=== PATIENT | female | born 1970 | race Caucasian/White ===

== ENCOUNTER 2018-04-19 21:38 | Outpatient (REF) | payer BC, SELFPAY ==
[2018-04-21 15:18] LABS: Chlamydia Result Negative; GC Result Negative; Specimen Description CERVIX
== END 2018-04-19 21:58 ==
LOC: NCHCN 21:38
PROVIDERS: PCP Nurse Practitioner Family; Visit Provider Nurse Practitioner
DX: N76.0 Acute vaginitis (principal); Z11.3 Encounter for screening for infections with a predominantly sexual mode of transmission
CPT/HCPCS: 87491; 87591; 87480; 87510; 87660

== ENCOUNTER 2019-11-17 17:04 | Outpatient (REF) | payer BC, SELFPAY ==
--- NOTE | 2019-11-17 16:15 | PAPFT_PTH ---
PATIENT: Johanne Prasad LOC: [facility]#:[id number] AGE/SX: 48/F ROOM: RE11/17/[address]: Breann Elias : 1970 BED: DIS: 11/17/2019 SPEC #: [id number] RECD: 11/18/19 12:42 STATUS: SALVADOR REIvet #: [id number] JAMES: 11/17/19 16:[address]: Breann Elias [facility] Cytology RECD BY: Flores Tate Tissues: 1 - CX/ENDOCX FOR PAP SMEARS Procedures: PAP THIN PREP/[facility] Screening HPV DNA PROBE Comments: [id number] (CHLAMYDIA/GC)
[2019-11-17 21:25] LABS: Calculated LDL 127 mg/dL (<100); Cholesterol 243 mg/dL (<200); HDL Cholesterol 93 mg/dL (40-60); TSH (W/Ref FT4) 2.12 uIU/mL (0.36-3.74); Triglyceride 119 mg/dL (<150)
[2019-11-21 10:14] LABS: Hepatitis C Ab w Rflx HCV PCR Negative (Negative)
[2019-11-21 10:24] LABS: HIV-1/2 Ag & Ab Screen Negative (Negative)
[2019-11-21 12:40] LABS: Syphilis Serology (RPR) Negative (Negative)
[2019-11-21 15:32] LABS: Chlamydia Result Negative (Negative); GC Result Negative (Negative)
== END 2019-11-17 17:24 ==
LOC: NCHCN 17:04
PROVIDERS: PCP Nurse Practitioner Family; Visit Provider Nurse Practitioner Family
DX: Z00.00 Encounter for general adult medical examination without abnormal findings (principal); F41.8 Other specified anxiety disorders; N92.0 Excessive and frequent menstruation with regular cycle; R51 Headache; R19.4 Change in bowel habit; M54.5 Low back pain; E66.3 Overweight; Z11.4 Encounter for screening for human immunodeficiency virus [HIV]; Z11.59 Encounter for screening for other viral diseases; Z13.220 Encounter for screening for lipoid disorders; Z12.4 Encounter for screening for malignant neoplasm of cervix; Z01.419 Encounter for gynecological examination (general) (routine) without abnormal findings
CPT/HCPCS: 80061; 86803; 87389; 87491; 87591; 88142; 84443; 86592; 87624

== ENCOUNTER 2019-12-12 01:15 | Outpatient (CLI) | payer BC, SELFPAY ==
--- NOTE | 2019-12-12 | DI.MAMMO_ITS ---
EXAM: MAMMO SCREENING CLINICAL HISTORY: SCREENING, [facility],Z00.00 TECHNIQUE: Mammograms were interpreted according to the usual protocol including computer analysis w [employer] CAD system, tomosynthesis and C-view imaging. COMPARISON: FINDINGS: Breasts are heterogeneously dense. No dominant mass or clumped microcalcification is identified in ei ther breast. Current examination is compared with previous examinations including January 2017 and there is increased prominence focal area of asymmetric density projected in the upper outer quadrant of the right breast. Additional mammographic views are requested to include CC and MLO spot eugene derick views of the right breast. No other significant change seen. IMPRESSION: Additional mammographic views of the right breast requested as described above. Breast ultrasound ma y be indicated as well depending on the results additional mammographic views. BI-RADS Category 0 - Assessment Incomplete: Need additional imaging evaluation Breast Density - Category C - Heterogeneously dense
== END 2019-12-12 01:35 ==
PROVIDERS: PCP Nurse Practitioner Family; Visit Provider Nurse Practitioner Family
DX: Z12.31 Encounter for screening mammogram for malignant neoplasm of breast (principal); Z00.00 Encounter for general adult medical examination without abnormal findings; R92.2 Inconclusive mammogram
CPT/HCPCS: 77063; 77067

== ENCOUNTER 2019-12-13 10:29 | Outpatient (CLI) | payer BC, SELFPAY ==
--- NOTE | 2019-12-13 | DI.RAD_ITS ---
EXAM: XR KNEE RT 3V AP,LAT,DAYAN CLINICAL HISTORY: ACUTE RT KNEE PAIN M25.561 TECHNIQUE: COMPARISON: No exams were available for comparison FINDINGS: Three views were obtained. No bony abnormality seen. There may be a small knee joint effusion. Car tilaginous joint spaces appear well maintained as visualized. IMPRESSION: Probable small joint effusion. No bony abnormality seen.
== END 2019-12-13 10:49 ==
PROVIDERS: PCP Nurse Practitioner Family; Visit Provider Internal Medicine
DX: M25.561 Pain in right knee (principal)
CPT/HCPCS: 73562

== ENCOUNTER 2019-12-28 01:38 | Outpatient (CLI) | payer BC, SELFPAY ==
--- NOTE | 2019-12-28 | DI.US_ITS ---
EXAM: US BREAST RT LIMITED CLINICAL HISTORY: F/U MAMMO - ASYMMETRIC DEMSITY ON RT TECHNIQUE: Ultrasound right breast performed using standard protocol. COMPARISON: MG MG MAMMO SCREENING from 12/12/2019 MG MG MAMMO SCREEN CALL BACK UNI from 12/28/2019 MG MG MAMMO SCREEN CALL BACK UNI from 12/28/2019 FINDINGS: The upper and outer aspects of the right breast where were scanned for a questioned area of nodularit y seen on mammograms.. Dense tissue is seen. No solid or cystic masses, hypoechoic foci, areas of a bnormal shadowing, or areas of skin thickening. IMPRESSION: No sonographically suspicious finding. BI-RADS Category 1 - Negative DATA REPOSITORY:
--- NOTE | 2019-12-28 10:27 | DI.MAMMO_ITS ---
EXAM: MG MAMMO SCREEN CALL BACK UNI CLINICAL HISTORY: F/U MAMMO, ASYMMETRIC DENSITY ON RT TECHNIQUE: Spot compression views including C- View and tomographic imaging were performed. COMPARISON: 12 December 2019 and exams from 2009 through 2016. FINDINGS: Spot compression CC and MLO views performed of the upper and outer aspects of the right breast. No persistent abnormality is seen on the additional views performed. The findings are consistent wit h overlying fibroglandular tissue. There has been no significant change from prior exams. IMPRESSION: BI-RADS Category 1, Negative Yearly screening mammography is recommended. Breast Density Category B, scattered fibroglandular densities.
== END 2019-12-28 01:58 ==
PROVIDERS: PCP Nurse Practitioner Family; Visit Provider Nurse Practitioner Family
DX: Z12.39 Encounter for other screening for malignant neoplasm of breast (principal); R92.8 Other abnormal and inconclusive findings on diagnostic imaging of breast; R92.2 Inconclusive mammogram
CPT/HCPCS: 76642; 77063; 77067

== ENCOUNTER 2020-01-04 01:06 | Outpatient (CLI) | payer BC, SELFPAY ==
--- NOTE | 2020-01-04 16:00 | DI.MRI_ITS ---
EXAM: MR LOWER JOINT RT WO CLINICAL HISTORY: RIGHT KNEE PAIN. INTERNAL DERANGEMENT. TECHNIQUE: Multiplanar multisequence MRI was performed. COMPARISON: No exams were available for comparison FINDINGS: MR examination of the knee was performed according to the usual protocol. There are areas of abnormal marrow signal of the posterior aspect of proximal tibia both medially and laterally consistent with bony trabecular injuries. Lateral femoral condylar abnormal marrow signal with question minimal cortical deformity noted. Abnormal marrow signal medial femoral condyle adjac ent to medial collateral ligament insertion and at the peripheral margin the articular surface. Lateral tibiofemoral joint: No meniscal tear seen. Fairly well preserved articular cartilage. No si gnificant lateral collateral ligament injury or posterolateral corner injury. Aforementioned lateral femoral condyle minimal cortical deformity, question slight impaction fracture, associated abnormal marrow signal posterior tibia. Medial tibiofemoral joint: Fairly well preserved articular cartilage. No meniscal tear seen. Grade 1-2 medial collateral ligament injury at the femoral attachment. Patellofemoral joint and extensor mechanism: Fairly well preserved articular cartilage. Normal appea kali of quadriceps and patellar tendons. Mildly abnormal signal in Hoffa fat pad and also in suprap atellar fat pads, nonspecific but presumably trauma related. Cruciate ligaments: Posterior cruciate ligament shows normal signal with no evidence of tear. There is markedly abnormal signal of the ACL, probable small partial thickness tear at the tibial att achment. There is marked contour deformity of the ACL adjacent to the femoral attachment which may r epresent complete transsection of the ligament, however some intact fibers may still be present. IMPRESSION: ACL tear, complete versus subtotal, please see above discussion. Bony trabecular injuries of both femoral condyles and posterior tibia medial and laterally. Possible tiny impaction fracture of lateral femoral condyle anteriorly. No convincing meniscal tear seen. Examination was somewhat limited by motion artifact. A nondisplac ed tear could be occult. DATA REPOSITORY:
== END 2020-01-04 01:26 ==
PROVIDERS: PCP Nurse Practitioner Family; Visit Provider Orthopaedic Surgery
DX: S83.511A Sprain of anterior cruciate ligament of right knee, initial encounter (principal); S89.91XA Unspecified injury of right lower leg, initial encounter; M25.561 Pain in right knee
CPT/HCPCS: 73721

== ENCOUNTER 2020-03-05 07:46 | Outpatient (CLI) | payer BC, SELFPAY ==
[2020-03-06 20:43] LABS: COVID-19 RT-PCR Result NEGATIVE (Negative)
== END 2020-03-05 08:06 ==
PROVIDERS: PCP Nurse Practitioner Family; Visit Provider Student in an Organized Health Care Education/Training Program
DX: Z01.818 Encounter for other preprocedural examination (principal); Z11.59 Encounter for screening for other viral diseases; S83.511A Sprain of anterior cruciate ligament of right knee, initial encounter; M22.3X1 Other derangements of patella, right knee; M24.561 Contracture, right knee
CPT/HCPCS: U0003

== ENCOUNTER 2020-03-08 07:39 | Day surgery (SDC) | payer BC, SELFPAY ==
[2020-03-08] VITALS (8 sets, daily range): BP systolic 90–132; BP diastolic 50–89; PULSE 66–90; RESP 12–25; TEMP 36.4–37.1; O2SAT 98–100
[2020-03-08] MEDS: Lactated Ringers 1,000 ML 100 ML IV (08:17)
[2020-03-08] MEDS: Bupivacaine LIPOSOME/PF 133 MG/10 ML VIAL IJ ×2 (08:35→12:12)
[2020-03-08] MEDS: Bupivacaine 0.25% Pres-Free 10 ML VIAL (08:35)
[2020-03-08] MEDS: CLINDAMYCIN 900 MG/50 ML BAG 50 MG IVPB (09:12)
[2020-03-08] MEDS: EPINEPHrine 30 MG/30 ML VIAL (12:04)
[2020-03-08] MEDS: Bupivacaine 0.25% Pres-Free 30 ML VIAL (12:11)
--- NOTE | 2020-03-08 13:19 | W.PM.DSUDISC ---
Discharge Plan Disposition Patient Disposition: HOME Condition: Stable Discharge Details Reason For Visit: R KNEE ACL RUPTURE Attending Provider: Ferny Navarrete Primary Care Provider: Breann Elias Home Meds and New Rx's Prescriptions: New ibuprofen 800 mg tablet 800 mg PO BID PRN (Reason: pain, moderate) Qty: 60 RF: 0 aspirin 81 mg tablet,delayed release (DR/EC) 81 mg PO DAILY 14 Days Qty: 14 RF: 0 tramadol 50 mg Tablet 50 mg PO Q8H PRN PRN (Reason: severe pain) Qty: 22 RF: 0 ondansetron 4 mg tablet,disintegrating 4 mg PO Q6H PRN (Reason: nausea or vomiting) Qty: 5 RF: 0 Continued multivitamin [Daily Multi-Vitamin] 1 EACH tablet 1 ea PO DAILY RF: 0 hydroxyzine HCl 25 mg tablet 25 mg PO TID PRNRF: 0 bupropion HCl 100 mg tablet 200 mg PO DAILY RF: 0 topiramate 100 mg tablet 100 mg PO BID RF: 0 norethindrone ac-eth estradiol [Microgestin 05/30 ()] 1-20 mg-mcg tablet 1 tab PO DAILY RF: 0 Discontinued ibuprofen 200 MG tablet 200 mg PO Q4-6H prn RF: 0 Discharge Instructions Additional Instructions: Surgery: ACL reconstruction Activity: Weightbearing as tolerated. Walk as comfort allows. May unwrap or remove knee immobilizer when quadriceps function returns. May use walker or crutches as needed. It is important to restore full knee extension as soon as possible. May gently progress knee flexion over the next few weeks. Do not rest with pillows behind knee to prevent knee from getting stuck bent. A physical therapy prescription will be sent electronically today to begin next week. Prescriptions: Aspirin 81 mg take 1 each day to prevent a blood clot 14 days Ibuprofen 800 mg take 1 every 12 hours with a meal as needed for moderate pain Tramadol 50 mg take 1 every 8 hours as needed for severe pain You may use [id number]-pulhsvl Tylenol (acetaminophen) as needed for mild pain. These pain medications may be taken all at once or in different combinations as needed. Also, recommend Colace (docusate) as a stool softener as surgery and pain medicine cause constipation. Dressings: Leave dressing in place for 5 days. Loosen the immobilizer and Nba wrap as necessary. May remove Nba wrap tomorrow. May re-wrap with Nba wrap to help control swelling as needed. May then remove and place Band-Aids the Steri-Strips. Keep clean and dry at all times. Follow-up: 10-[address] Navarrete You may take off the leg compression stockings tomorrow at home. You may also leave them on a few days longer if you have a history of leg swelling or edema. Let us know right away if you develop any redness, drainage, fevers, chest pain, or trouble breathing. Do not drink alcohol or drive for at least 24 hours after anesthesia. Please call the office during business hours with any questions or concerns. Referrals: Ferny Navarrete MD [ [facility] STAFF PHYSICIAN] - Discharge Orders Discharge Orders: Discharge Order (Routine); Ordered 03/08/20 Ordered By: Ferny Navarrete DS: Diagnosis Discharge Diagnosis (1) Complete tear of anterior cruciate ligament of right knee: Status: Acute (2) Contracture, right knee: Status: Acute
--- NOTE | 2020-03-08 13:40 | W.PM.OP ---
Date of service: 03/08/20 Time of Service: 13:40 Operative Note Operative Note DATE OF PROCEDURE: 03/08/20 PRE-OP DIAGNOSIS: 1. Right knee ACL rupture 2. Right knee contracture POST-OP DIAGNOSIS: same PROCEDURE: 1. Right knee arthroscopically assisted anterior cruciate ligament reconstruction, CPT # 01360: Tibialis anterior allograft 2. Right knee manipulation under anesthesia, CPT # 74560 SURGEON: Ferny Navarrete LOW ALTITUDE [employer] DEF[employer] GUNNER: Tonia Suárez ANESTHESIA: GETA, regional and local ESTIMATED BLOOD LOSS: 15 TOURNIQUET TIME: 87 COMPLICATIONS: None Patient was transported to: PACU Patient's condition: stable Implants: [employer] Rigid Loop adjustable cortical button Intrafix tibial fastener system Indications: Please see complete medical record for details. Findings: Increased anterior translation to Janette testing but no gross instability. Relatively stable anterior drawer. Negative pivot shift. Range of motion 30 to 90 degrees gently manipulated past 145 degrees flexion to 15 degree flexion contracture with very mild release of adhesions. Steady pressure and manipulation alternating flexion extension with palpable minor adhesion releases restore terminal extension and symmetrical equal hyperextension of about 5 degrees. Procedure Description: In the operating room, general anesthesia was induced. The patient was positioned supine on the operating room table. All bony prominences were well-padded. Preoperative antibiotics were administered. The right knee was prepped and draped in the usual sterile fashion. The correct patient, procedure, and side of the procedure were all verified prior to incision. The patient's exam under anesthesia confirmed a minor flexion contracture. This was easily corrected with a manipulation under anesthesia. After the manipulation, the patient's range of motion was full and the decision was made to proceed with knee arthroscopy and planned ACL surgery. A complete diagnostic arthroscopy was performed with intact cartilaginous surfaces of the patella, trochlea, medial and lateral joint spaces and medial lateral menisci. The notch demonstrated a complete ACL rupture with approximately 75% remnant remaining on the tibia and scarred posteriorly to the PCL. The remaining 25% or less remained on the femoral origin. The PCL was completely intact. The ACL tissue was probed and examined confirming the distal remnant could not be reapproximated appropriately to the femoral wall for possible repair due to the tear location. Mechanical shaver was used to perform a small notchplasty and remove the ACL remnant on the tibia and femur leaving a ring of tissue for anatomic future tunnel drilling. The knee was drained of arthroscopic fluid and attention was turned to the back table for graft preparation. A preselected peroneus longus allograft was appropriately warmed and saline containing vancomycin. The graft was doubled over a FiberWire in each and was prepped using fiber loop suture tape. The doubled graft was sized and found to be about 10.5 mm diameter and over 130 mm in length. The graft was pretensioned on the back table and compressed with a 9 mm graft tube. Vancomycin soaked Ray-Brennen's were placed over the graft and the sutures. An Esmarch was used to exsanguinate the extremity and the tourniquet was inflated. Back inside the knee, the femoral guide was used to localize placement of an anatomic femoral tunnel. The skin and IT band were incised longitudinally compressing the guide to the femoral wall and lateral femoral cortex. Appropriate posterior and distal articular margin offset were confirmed. The twister retroreamer was then drilled through the guide, femoral tunnel length was about 33 mm, flipped to a diameter of 9.5 mm, and then retrograde reamed a socket depth of about 25 mm. A passing suture was placed and secured through the anterolateral portal. Tibial guide within used to localize placement of an anatomic tibial tunnel. In a similar fashion the skin and subcutaneous tissues were longitudinal incised and the guide compressed down to the anterior mid medial tibial cortex followed by drilling through the guide measuring about 30 mm tibial tunnel length. The retroreamer was flipped to a diameter of 9.5 mm and retrograde reamed from inside out a complete tunnel. A suture grasper was used to retrieve the femoral passing suture out the anterior tibial cortex. The doubled over graft was passed around the adjustable cortical button. The corneal button sutures were then passed through the tibial tunnel at the femoral tunnel and out the lateral femur. Taking care to advance the cortical button, it was advanced into the knee and through the femoral tunnel and flipped at the appropriate premarked length. Cortical fixation was confirmed by tactile feel and direct visualization through the femoral tunnel viewing from the anteromedial portal. The adjustable sutures were then used to advance the graft from inside the notch past the premarked 20 mm length docking it into the femoral tunnel. Appropriate flipping, cortical fixation, and full graft docking in the socket were all confirmed and repeated numerous times help lock the construct while maintaining steady distal traction on the graft and ranging the knee from deep flexion to full extension. In full extension the graft was confirmed to not impinge anteriorly on the notch. Range of motion the graft was felt to be very isometric. The arthroscope was removed the knee was brought in full extension on the table. The 2 ends of the graft were brought and held under traction apart from each other medial laterally and the trajectory of the tibial tunnel confirmed. The appropriate tap was used followed by insertion of the sheath and then bio Intrafix screw. While tension was maintained with the knee in full extension a gentle steady reverse Janette maneuver was also applied. The knee was cycled numerous times. There was no loss of fixation of the femur or tibia side. The knee was examined and felt to be extremely stable to Janette testing. The arthroscope was brought back into the knee and the graft probed found to be appropriately positioned and very tolerant with secure fixation. There is no impingement in the notch with full extension. The distalmost screw tip however was slightly prominent into the joint given this very petite patient, which was not totally unexpected. The screw had been inserted flush with the anterior tibial cortex for best fixation. A small rongeur and pituitary were used through alternating portals to remove the distalmost 2 mm of the soft screw. The knee was copiously irrigated with saline. Final images were obtained. The knee was brought back into extension on the back table and a slightly prominent sheath was trimmed down flush with the anterior tibial cortex using a rondure. The portals, lateral femoral incision, and anterior tibial incision were all copiously irrigated with normal saline. The portals and lateral incision were closed in 3-0 Monocryl in a buried fashion. The same incision subcutaneous tissue was closed in 2-0 Monocryl in a buried fashion and the skin closed with 3-0 Monocryl in a buried running fashion. Mastisol was applied about all incision followed by Steri-Strips, 4 x 4 gauze, ABDs, and sterile soft roll. The extremity was wrapped gently Nba compressive bandage and placed into a knee immobilizer. The patient awoke from anesthesia without complication and was transferred to the recovery room in a stable condition.
[2020-03-08] MEDS: traMADol 50 MG TAB PO (13:55)
== END 2020-03-08 14:55 | disposition home or self-care (01) ==
PROVIDERS: PCP Nurse Practitioner Family; Visit Provider Student in an Organized Health Care Education/Training Program
PROC: (CPT 29888; principal; 2020-03-08 10:00)
DX: S83.511A Sprain of anterior cruciate ligament of right knee, initial encounter (principal); M24.561 Contracture, right knee; F41.8 Other specified anxiety disorders
CPT/HCPCS: 29888; 27570; 76942; J1100; J1885; J2250; J2405; J2704; L1830; L1833; L8699

== ENCOUNTER 2020-04-24 00:32 | Outpatient (CLI) | payer BC, SELFPAY ==
--- NOTE | 2020-04-24 | DI.US_ITS ---
EXAM: US AXILLA RT CLINICAL HISTORY: SKIN NODULE,R22.9 TECHNIQUE: Ultrasound right axilla performed using standard protocol. COMPARISON: No exams were available for comparison FINDINGS: There is a heterogeneous area measuring 1.2 x 0.5 x 1.3 cm in the right axilla corresponding to the p alpable abnormality. No defined borders are seen. There is mild increased vascularity in the surrou nding soft tissues. This may represent an infectious or inflammatory process such as a focal celluli tis. No abscess or discrete mass is identified. A follow-up ultrasound in 1 month may be considered for re-evaluation. IMPRESSION: DATA REPOSITORY:
== END 2020-04-24 00:52 ==
PROVIDERS: PCP Nurse Practitioner Family; Visit Provider Nurse Practitioner Family
DX: R22.31 Localized swelling, mass and lump, right upper limb (principal)
CPT/HCPCS: 76642

== ENCOUNTER 2020-05-23 04:19 | Outpatient (CLI) | payer BC, SELFPAY ==
[2020-05-24 15:07] LABS: COVID-19 RT-PCR UVMMC Result Negative (Negative)
== END 2020-05-23 04:39 ==
PROVIDERS: PCP Nurse Practitioner Family; Visit Provider Student in an Organized Health Care Education/Training Program
DX: Z11.52 Encounter for screening for COVID-19 (principal); Z01.818 Encounter for other preprocedural examination
CPT/HCPCS: U0003

== ENCOUNTER 2020-05-28 02:08 | Outpatient (CLI) | payer BC, SELFPAY ==
[2020-05-29 12:40] LABS: COVID-19 RT-PCR UVMMC Result Negative (Negative)
== END 2020-05-28 02:28 ==
PROVIDERS: PCP Nurse Practitioner Family; Visit Provider Student in an Organized Health Care Education/Training Program
DX: Z11.52 Encounter for screening for COVID-19 (principal); Z01.818 Encounter for other preprocedural examination
CPT/HCPCS: U0003

== ENCOUNTER 2020-05-31 11:51 | Day surgery (SDC) | payer BC, SELFPAY ==
--- NOTE | 2020-05-23 08:49 | NUR.NOTE ---
Patient called and message left on VM at 0850 05/23/20 with Pre op instructions, time of arrival and NPO instructions. Patient also instructions to call to confirm.
[2020-05-31] VITALS (10 sets, daily range): BP systolic 91–143; BP diastolic 33–73; PULSE 56–82; RESP 15–24; TEMP 36–37; O2SAT 94–100
[2020-05-31] MEDS: Lactated Ringers 1,000 ML 100 ML IV (12:27)
[2020-05-31] MEDS: Midazolam 2 MG/2 ML VIAL IVP (14:08)
--- NOTE | 2020-05-31 14:48 | ROE_ITS ---
Date of service: 05/31/20 Time of Service: 14:48 Operative Note Operative Note DATE OF PROCEDURE: 05/31/20 PRE-OP DIAGNOSIS: Right knee contracture status post ACL reconstruction POST-OP DIAGNOSIS: same PROCEDURE: Right knee manipulation under anesthesia, CPT #[id number] SURGEON: Ferny Navarrete CHEMISTRY QUALITY CONTROL ANALYST: None None ANESTHESIA: GETA ESTIMATED BLOOD LOSS: 0 TOURNIQUET TIME: 0 COMPLICATIONS: None Patient was transported to: PACU Patient's condition: stable Implants: None Indications: Please see complete medical record for details. Procedure Description: In the operating room, general anesthesia was induced. The patient was positioned supine on the operating room table. All bony prominences were well-padded. Preoperative antibiotics were omitted. The correct patient, procedure, and side of the procedure were all verified prior to incision. Preoperative range of motion of the right knee was 10 to 90 degrees. The uninjured knee had 3 degrees hyperextension and flexion to 150 degrees. Once general anesthesia including neuromuscular paralysis was established, steady heel lift extension was applied with gentle tissue releases felt posteriorly restoring terminal extension including a few degrees of hyperextension. The knee was then brought to about 90 degrees of flexion and again gentle tissue releases felt as steady pressure brought the knee into full flexion nearly heal to buttocks 150 degrees. The knee was then ranged from terminal hyperextension to full flexion over 30 times without any resistance to motion. Over the next 5 minutes the knee was held in alternating positions of hyperextension and full flexion. This range of motion was documented with video and photo for later review with the patient and physical therapist. The patient awoke from anesthesia without complication and was transferred to the recovery room in a stable condition.
--- NOTE | 2020-05-31 15:20 | W.PM.DSUDISC ---
Discharge Plan Disposition Patient Disposition: HOME Condition: Stable Discharge Details Reason For Visit: Right knee stiffness Attending Provider: Ferny Navarrete Primary Care Provider: Breann Elias Home Meds and New Rx's Prescriptions: New ibuprofen 800 mg tablet 800 mg PO BID PRN (Reason: pain, moderate) Qty: 60 RF: 0 tramadol 50 mg Tablet 50 mg PO Q8H PRN PRN (Reason: severe pain) Qty: 22 RF: 0 diazepam [Valium] 5 mg tablet 5 mg PO TID PRN (Reason: muscle spasticity) Qty: 30 RF: 0 Continued diazepam 5 mg tablet 5 mg PO Q8H PRN (Reason: muscle spasm) Qty: 30 RF: 0 multivitamin [Daily Multi-Vitamin] 1 EACH tablet 1 ea PO DAILY RF: 0 hydroxyzine HCl 25 mg tablet 25 mg PO TID PRNRF: 0 bupropion HCl 100 mg tablet 200 mg PO DAILY RF: 0 topiramate 100 mg tablet 100 mg PO BID RF: 0 norethindrone ac-eth estradiol [Microgestin 05/30 ()] 1-20 mg-mcg tablet 1 tab PO DAILY RF: 0 ibuprofen 800 mg tablet 800 mg PO BID PRN (Reason: pain, moderate) Qty: 60 RF: 0 Discharge Instructions Additional Instructions: Surgery: Right knee manipulation under anesthesia Activity: Weightbearing as tolerated. Please perform all range of motion extension and flexion home exercises multiple times each day. A new physical therapy prescription will be sent electronically to begin tomorrow. Prescriptions: Diazepam 5 mg take 1 every 8 hours as needed for muscle spasm/tightness Ibuprofen 800 mg take 1 every 12 hours with a meal as needed for moderate pain Tramadol 50 mg take 1-2 every 8 hours as needed for severe pain You may use [id number]-pfrminp Tylenol (acetaminophen) as needed for mild pain. These pain medications may be taken all at once or in different combinations as needed. Also, recommend Colace (docusate) as a stool softener as surgery and pain medicine cause constipation. Dressings: None Follow-up: 10-[address] Navarrete Let us know right away if you develop any redness, drainage, fevers, chest pain, or trouble breathing. Do not drink alcohol or drive for at least 24 hours after anesthesia. Please call the office during business hours with any questions or concerns. Referrals: Ferny Navarrete MD [ [facility] STAFF PHYSICIAN] - Discharge Orders Discharge Orders: Discharge Order (Routine); Ordered 05/31/20 Ordered By: Ferny Navarrete DS: Diagnosis Discharge Diagnosis (1) Contracture, right knee: Status: Acute (2) Complete tear of anterior cruciate ligament of right knee: Status: Acute
== END 2020-05-31 16:00 | disposition home or self-care (01) ==
PROVIDERS: PCP Nurse Practitioner Family; Visit Provider Student in an Organized Health Care Education/Training Program
PROC: (CPT 27570; principal; 2020-05-31 10:30)
PROC: (CPT 29870; 2020-05-31 10:30)
DX: M24.561 Contracture, right knee (principal); S83.511S Sprain of anterior cruciate ligament of right knee, sequela; Z98.890 Other specified postprocedural states; X58.XXXS Exposure to other specified factors, sequela; G89.18 Other acute postprocedural pain
CPT/HCPCS: 27570; 76942; 81025; J1100; J1885; J2001; J2250; J2405; J2704; J3010

== ENCOUNTER 2020-08-09 20:15 | Outpatient (REF) | payer BC, SELFPAY ==
[2020-08-13 13:54] LABS: Chlamydia Result Negative (Negative); GC Result Negative (Negative)
== END 2020-08-09 20:16 | disposition home or self-care (01) ==
LOC: NCHCN 20:15
PROVIDERS: PCP Nurse Practitioner Family; Visit Provider Nurse Practitioner Family
DX: N89.8 Other specified noninflammatory disorders of vagina (principal); F41.8 Other specified anxiety disorders; Z11.3 Encounter for screening for infections with a predominantly sexual mode of transmission
CPT/HCPCS: 87491; 87591; 87480; 87510; 87660

== ENCOUNTER 2020-08-20 03:20 | Outpatient (CLI) | payer BC, SELFPAY ==
[2020-08-20 10:54] LABS: Source Nasal/Nares
[2020-08-20 16:19] LABS: COVID-19 PCR Negative (Negative)
== END 2020-08-20 03:21 | disposition home or self-care (01) ==
LOC: LBO 03:21
PROVIDERS: Surgery; PCP Nurse Practitioner Family; Visit Provider Dermatology
DX: Z20.822 Contact with and (suspected) exposure to COVID-19 (principal); Z01.818 Encounter for other preprocedural examination
CPT/HCPCS: 87635

== ENCOUNTER 2020-08-21 06:19 | Day surgery (SDC) | payer BC, SELFPAY ==
[2020-08-21 06:33] VITALS: BP 133/55; PULSE 60; RESP 16; TEMP 36.7; O2SAT 99
[2020-08-21] MEDS: Lactated Ringers 1,000 ML 80 ML IV (07:00)
[2020-08-21] MEDS: Acetaminophen 500 MG TAB 1000 MG PO (07:01)
[2020-08-21] MEDS: Gabapentin 300 MG CAP PO (07:01)
--- NOTE | 2020-08-21 07:55 | SOFT_PTH ---
PATIENT: Johanne Prasad LOC: [facility] U#:[id number] AGE/SX: 49/F ROOM: RE08/21/[address]: Madiha Brunson : 1970 BED: DIS: 08/21/2020 SPEC #: [id number] RECD: 08/21/20 12:48 STATUS: SALVADOR REIvet #: [id number] JAMES: 08/21/20 07:[address]: Madiha Brunson DEPT: Surgical Specimen RECD BY: Flores Tate ENTERED: 08/21/20 12:49 SP TYPE: SOFT OTHR DR: Breann Elias Tissues: 1 - SOFT TISSUE MISC (INC. LIPOMA) Procedures: GROSS AND MICRO LEVEL 3 Comments: [id number]
--- NOTE | 2020-08-21 08:18 | W.PM.OP ---
Date of service: 08/21/20 Time of Service: 08:18 Operative Note Operative Note DATE OF PROCEDURE: 08/21/20 PRE-OP DIAGNOSIS: Right axillary mass POST-OP DIAGNOSIS: other (Enlarged lymph nodes) PROCEDURE: Excision of mass SURGEON: Madiha Brunson JOURNEYMAN PRESS OPERATOR: Marlena Coelho ANESTHESIA TYPE: Local By Surgeon and MAC Refer to Anesthesia Record ESTIMATED BLOOD LOSS: 1 PATHOLOGY: other COMPLICATIONS: None Patient was transported to: same day Patient's condition: stable Procedure Description: Margret is here today for excision of a right axillary mass. It has been present for several months. She thinks it is growing. It is soft freely mobile and not fixed. Patient is here today for excision. Informed consent is obtained explaining risks and benefits of the procedure including but not limited to: Bleeding, infection, pneumonia, blood clots, chronic pain or chronic numbness, reaction to the anesthesia, and other unforetold complications. Recurrence of the lesion, need for further excision depending on pathology, and others. Patient is marked in brief preop. She is brought to the operative room and placed in the supine position with the arm abducted. All bony surfaces are padded. She does not require antibiotics. She is prepped and draped in the usual sterile fashion using a ChloraPrep scrub solution. Timeout is performed. The lesion in the mid right axilla is anesthetized with 20 cc half percent Marcaine with epinephrine. Half an inch incision is made with a #12 blade. The mass is dissected out. It appears to be a lymph node that is enlarged. It is otherwise soft and does not appear to be malignant. There are no other enlarged nodes or other masses in the axillary area. The wound is irrigated. It is closed with 4 stitches of 3-0 nylon. Sterile compression dressing is applied. Patient taught procedure well without complication and transferred to recovery room in stable condition. Voice activated software was used to create this document and may contain errors
--- NOTE | 2020-08-21 08:19 | W.PM.DSUDISC ---
Discharge Plan Disposition Patient Disposition: HOME Condition: Good Discharge Details Reason For Visit: removal mass left axillae Attending Provider: Madiha Brunson Primary Care Provider: Breann Elias Home Meds and New Rx's Prescriptions: No Action multivitamin [Daily Multi-Vitamin] 1 EACH tablet 1 ea PO DAILY RF: 0 bupropion HCl 100 mg tablet 200 mg PO DAILY RF: 0 topiramate 100 mg tablet 100 mg PO BID RF: 0 norethindrone ac-eth estradiol [Microgestin 05/30 ()] 1-20 mg-mcg tablet 1 tab PO DAILY RF: 0 ibuprofen 800 mg tablet 800 mg PO BID PRN (Reason: pain, moderate) Qty: 60 RF: 0 Discharge Instructions Additional Instructions: Caring for Your Incision You?ll need to help care for your incision after surgery and certain medical procedures. To close an incision, your healthcare provider used stitches (sutures), special strips of surgical tape called Steri-Strips, surgical michele, or surgical skin glue. Follow the tips on this sheet to help stop bleeding, speed healing, and prevent infection of your incision. Pain Control Use ice! Ice keeps the swelling down and swelling is what causes pain. Never apply ice directly to the skin. Wrap it in a towel or cloth. Apply ice 20 minutes on and 20 minutes off for pain control. Use as needed. Take tylenol 500 mg by mouth with food every 4 hours as needed for pain. Or ibuprofen 800 mg by mouth with food every 6 hours as needed for pain. Do not take tylenol if you have a history of heavy drinking , hepatits C or liver problems. Do not take ibuprofen if you have a history of stomach ulcers/problems, bleeding problem or kidney issues. Types of incision closures ? Surgical stitches (sutures) are placed by sewing the edges of an incision together with surgical thread. Sutures are either absorbable or non-absorbable. Absorbable sutures break down in the body over time. Non-absorbable sutures need to be removed. ? Home care ? Always wash your hands before touching your incision. ? Keep the incision clean, dry, and out of water, keep the incision out of water. ? Do not to pick at the scabs. Scabs help protect the wound. ? You can take a shower in 24 hours and wash the incision with soap and water. Pat dry/don?t scrub. It?s OK to wash around the incision. But don?t spray water directly on it. ? Pat stitches dry if they get wet. Don't rub. ? Check the incision site daily for pain, redness, drainage, swelling, or separation of the incision edges. ? If there is a bandage (dressing) over the incision, change this every 24 hours as instructed by your provider. Using clean hands change the dressing as directed by your healthcare provider. Always wash your hands before changing your dressing. ? Make sure any clothing that touches the incision is loose-fitting. This will prevent rubbing. If the incision is on the head, keep your child from wearing caps or other head coverings. These may rub against the incision. ? Try to avoid from rough play, contact sports, or physical activities for two weeks. This can put you at risk of opening the incision. ? Make sure you avoid doing things that could cause dirt or sweat to get in or on the incision. As your incision heals, the skin may appear pink or red. It may also feel slightly bumpy or raised. This is called a healing ridge. Over time, the color should fade and the raised skin will become less noticeable. Care for specific closures : ? Sutures or michele. Once you no longer need to keep these dry, clean the incision or wound daily, generally after the first 24 hours. First remove the bandage using clean hands. Then wash the area gently with soap and warm water. Use a wet cotton swab to loosen and remove any blood or crust that forms. After cleaning, put a thin layer of antibiotic ointment on. Then put on a new bandage. Follow-up care [place] or sutures generally need to be removed in 7-10 days. Be sure to return for suture or staple removal as directed. If dissolving stitches were used in your mouth, these will not need to be removed. They should fall out or dissolve on their own. If tape closures were used, remove them yourself when your healthcare provider tells you to if they have not fallen off on their own. When to seek medical care Call your healthcare provider right away if you have any of these: ? More pain, redness, swelling, bleeding, or foul-smelling discharge around the incision area ? Fever of 101?F (38.3?C) or higher, or as directed by your child's healthcare provider ? Shaking chills ? Vomiting or nausea that doesn?t go away ? Numbness, coldness, or tingling around the incision area, or changes in skin color ? Opening of the sutures or wound Stitches or michele come apart or fall out or surgical tape falls off before 7 days, or as directed by your healthcare provider [facility] to make appt w/ Dr. Brunson in 10 days. [phone] Activity:: no lifting over 10#'s x 2 weeks Remove Dressings/Wound Care:: 24 hours Shower/Bathe:: 24 hours Diet:: As Tolerated Discharge Orders Discharge Orders: Discharge Order (Routine); Ordered 08/21/20 Ordered By: Madiha Brunson DS: Diagnosis Discharge Diagnosis (1) Lipoma of axilla: Status: Acute
[2020-08-21] MEDS: Ketorolac 15 MG/ML VIAL IVP (08:26)
[2020-08-21] MEDS: Normal Saline Flush 10 ML SYR IV (08:27)
[2020-08-21 08:40] VITALS: BP 131/64; PULSE 80; RESP 16; TEMP 36.2; O2SAT 100
== END 2020-08-21 09:10 | disposition home or self-care (01) ==
PROVIDERS: PCP Nurse Practitioner Family; Visit Provider Surgery
PROC: (CPT 19120; principal; 2020-08-21 07:30)
DX: Q85.8 Other phakomatoses, not elsewhere classified (principal); R59.0 Localized enlarged lymph nodes
CPT/HCPCS: 19120; 88304; J1885; J2001; J2250

== ENCOUNTER 2020-10-12 13:44 | Day surgery (SDC) | payer BC, SELFPAY ==
[2020-10-12] MEDS: Lactated Ringers 1,000 ML 80 ML IV (14:05)
[2020-10-12 14:08] VITALS: BP 124/79; PULSE 96; RESP 18; TEMP 36.3; O2SAT 98
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
[2020-10-12 15:06] VITALS: BMI 25.4
--- NOTE | 2020-10-12 15:20 | BOWEL_PTH ---
PATIENT: Johanne Prasad LOC: [facility] U#:[id number] AGE/SX: 49/F ROOM: RE10/12/[address]: Madiha Brunson : 1970 BED: DIS: 10/12/2020 SPEC #: [id number] RECD: 10/12/20 16:31 STATUS: [place] REIvet #: [id number] JAMES: 10/12/20 15:[address]: Madiha Brunson DEPT: Surgical Specimen RECD BY: Flores Tate ENTERED: 10/12/20 16:32 SP TYPE: Bowel OTHR DR: Breann Elias Tissues: 1 - BIOPSY BOWEL Procedures: GROSS AND MICRO LEVEL 4 Comments: [id number]
--- NOTE | 2020-10-12 15:44 | W.ANESPOSTOP ---
Postoperative Evaluation Date, Time and Location Date Performed: 10/12/20 Time Performed: 15:44 Patient Location: Day Surgery Unit Vital Signs Most Recent Imported Vital Signs: Most Recent Vital Signs Temp Pulse Resp BP Pulse Ox 36.3 C L 96 H 18 124/79 98 10/12/20 14:08 10/12/20 14:08 10/12/20 14:08 10/12/20 14:08 10/12/20 14:08 Most Recent Manually Entered Vital Signs: Adult Blood Pressure: 108/54 Heart Rate: 87 Respirations: 14 Oxygen Saturation (%): 98 Temperature (C): 36.4 C Pain Score (0-10 Scale): 0 Pain Score Most Recent Pain Score: Most Recent Pain Score Pain Level 5 10/12/20 14:08 Assessment Mental Status: Awake (Alert & Oriented to Patient Baseline) Airway and Respiratory Function: Patent airway with normal (patient baseline) respiratory exam Cardiovascular Function: Hemodynamically Stable Hydration Status: Adequately Hydrated Nausea & Vomiting: No Nausea or Vomiting Pain: Pt. Denies Any Pain Peripheral Nerve Block: Patient did not receive a nerve block
[2020-10-12 15:45] VITALS: BP 108/54; PULSE 87; RESP 14; TEMPC 36.4; O2SAT 98
--- NOTE | 2020-10-12 16:01 | W.COLOREPORT ---
Date of service: 10/12/20 Time of Service: 16:02 Colonoscopy Report Date of procedure: 10/12/20 Pre-op diagnosis general: 1 st degree family member w/ CRC Post-op diagnosis procedure note: same Surgeon: Madiha Brunson Anesthesia Type: General:No Airway Estimated blood loss (mL): 0 Pathology: other Complications: None Disposition: same day Prep: Miralax/Dulcolax Retraction Time: 9 mins Procedure Description: After informed consent was obtained the patient was taken to the procedure room and placed in a left decubitous position. Monitors were applied and a time out was done. The patients name, date of , procedure, allergies to medications and metal in their body was reviewed. The patient was then sedated. Once sedated and comfortable a rectal exam was done. External exam was normal. Internal exam revealed a normal sphincter tone and no palpable masses. The scope was then introduced and retrofelexed. no internal hemorrhoids were identified. The scope was then advanced to the cecum w/out difficulty. The TI and appendiceal orifice were identified. The prep was good. The scope was then slowly retracted over 9 minutes back into the rectum. There are no polyps, AVMs, or diverticula visualized on the scope today. There is just some mild redness and edema of the entire colon mucosa. It is nonspecific-and probably related to the prep. A Mathematics Department Chair biopsy was taken at 20 cm. Otherwise the colon is normal today. the scope was removed and the patient was woken up and taken back to Same day surgery in stable condition. The patient tolerated the procedure well and there were no immediate complications. Follow up: The patient should follow up in 5 years unless they develop changes in bowel habits or other new gastrointestinal complaints.
--- NOTE | 2020-10-12 16:05 | PDOC.DSDIS_ITS ---
Discharge Plan Disposition Patient Disposition: HOME Condition: Good Discharge Details Reason For Visit: colon scope Attending Provider: Madiha Brunson Primary Care Provider: Breann Elias Home Meds and New Rx's Prescriptions: Discontinued bisacodyl [Dulcolax (bisacodyl)] 5 mg tablet,delayed release (DR/EC) 5 mg PO ONCE Qty: 4 RF: 0 polyethylene glycol 3350 17 gram/dose powder 238 g PO ONCE Qty: 238 RF: 0 No Action multivitamin [Daily Multi-Vitamin] 1 EACH tablet 1 ea PO DAILY RF: 0 bupropion HCl 100 mg tablet 200 mg PO DAILY RF: 0 topiramate 100 mg tablet 100 mg PO BID RF: 0 norethindrone ac-eth estradiol [Microgestin 05/30 ()] 1-20 mg-mcg tablet 1 tab PO DAILY RF: 0 ibuprofen 800 mg tablet 800 mg PO BID PRN (Reason: pain, moderate) Qty: 60 RF: 0 Discharge Instructions Additional Instructions: DSU Colonoscopy Post- Op Instructions Instructions for Everyone who is given Anesthesia: For your safety, please do the following for the next twenty-four (24) hours: *Do Not operate a motor vehicle (car, truck, motorcycle, etc.) *Do Not drink alcoholic beverages or use any recreational drugs for the first 24 hours or while taking pain medications. The medications in your body may have a reaction that can be dangerous. *Do Not make any important decisions or sign any important papers. Findings: normal Follow up: repeat in 5 yrs time. If he complains any unexplained weight loss, changes in your bowel habits, pain or difficulty moving your bowels, or persistent rectal bleeding, please contact your healthcare provider as this may indicate you need a colonoscopy sooner. 1. No lifting over 20 pounds or strenuous activity for the first 24 hours after your procedure. After 24 hours there are no restrictions on your activity but you may feel fatigued for a few days. 2. After you arrive home you may have a light meal and return to your normal diet as you can tolerate it without feeling sick to your stomach. 3. You may have a bloated, gaseous feeling in your belly (abdomen) after a colonoscopy. Passing gas and belching will help. Walking or lying down on your left side with your knees flexed may relieve the discomfort. Call the office at [phone] (Office) or [phone] (Hospital) right away if you notice any of the following: a.Vomiting of blood or ?coffee ground stools?. b.Rectal bleeding 1Tbsp, blood clots or continuous bleeding. c.Severe belly (abdominal) pain. d.A hard distended belly (abdomen) and an inability to pass gas. 4. Please don?t expect to have a normal BM (bowel movement) for 2-3 days after your procedure. 5. If there are questions regarding the findings of your procedure, please contact your doctor 6. If you are unable to contact your doctor with a problem, contact the hospital at [phone]. 7. Continue all your regular medications unless directed otherwise. I understand the above instructions and have no questions. Signature of Patient or Adult Escort Name of Responsible Adult Escort Signature of Nurse Date/Time Activity:: see above Diet:: see above DS: Diagnosis Discharge Diagnosis (1) Family history of malignant neoplasm of colon in relative diagnosed when older than 50 years of age: Status: Acute (2) Tubular adenoma of colon: Status: Acute
[2020-10-12 16:20] VITALS: BP 126/63; PULSE 95; RESP 18; TEMP 36; O2SAT 97
== END 2020-10-12 16:25 | disposition home or self-care (01) ==
PROVIDERS: PCP Nurse Practitioner Family; Visit Provider Surgery
PROC: 0DJD8ZZ Inspection of Lower Intestinal Tract, Via Natural or Artificial Opening Endoscopic (ICD-10-PCS; CPT 45378; principal; 2020-10-12 12:45)
DX: Z12.11 Encounter for screening for malignant neoplasm of colon (principal); Z80.0 Family history of malignant neoplasm of digestive organs; Z86.010 Personal history of colon polyps; K63.5 Polyp of colon
CPT/HCPCS: 45380; 88305; J2001

== ENCOUNTER 2021-01-07 01:52 | Outpatient (CLI) | payer OTHER, SELFPAY ==
--- NOTE | 2021-01-07 | DI.MAMMO_ITS ---
Exam(s) MAMMO SCREENING EXAM: MAMMO SCREENING CLINICAL HISTORY: SCREENING, FAMILY H/O BREAST CA,Z80.3,Z12.39 TECHNIQUE: Bilateral full field digital CC and MLO mammographic images were obtained with 3D tomosyn thesis and utilizing computer aided detection (CAD). COMPARISON: Available for comparison. FINDINGS: Masses/Architectural Distortion: There is a 5 mm asymmetry in the posterior outer left breast seen on the craniocaudad view 8 cm from the nipple. Microcalcifications: No suspicious pleomorphic-type are seen. Skin Thickening/Nipple Retraction: None. IMPRESSION: 1. New asymmetry in the posterior outer left breast. 2. Spot compression views requested for further evaluation. Ultrasound may be indicated at that time . BI-RADS Category 0 - Assessment Incomplete: Need additional imaging evaluation Breast Density - Category C - Heterogeneously dense Breast density category C or D implies that the patient has dense breast tissue. Dense breast tissue is very common and is not abnormal but dense breast tissue can make it harder to find cancer on a ma mmogram. Also, dense breast tissue may increase their breast cancer risk. This information about the result of the mammogram report was provided to the patient to raise their awareness. Use this report when you speak with the patient about their risks for breast cancer, which includes their family hist ory. At that time, you may recommend for more screening tests (Ultrasound or MRI) as they might be us eful based on their risk. A negative radiographic report should not delay biopsy if a dominant or clinically suspicious mass is present. Up to ten percent of cancers are not identified on mammography. A negative report may reinforce clinical impression. Adenosis and dense breasts may obscure an underlying neoplasm. False positive reports average 6 to 10%. Patient will receive a letter notifying them of these results.
== END 2021-01-07 02:12 ==
PROVIDERS: PCP Nurse Practitioner Family; Visit Provider Nurse Practitioner Family
DX: Z12.31 Encounter for screening mammogram for malignant neoplasm of breast (principal); Z80.3 Family history of malignant neoplasm of breast; N64.89 Other specified disorders of breast
CPT/HCPCS: 77063; 77067

== ENCOUNTER 2021-01-24 01:59 | Outpatient (CLI) | payer OTHER, SELFPAY ==
--- NOTE | 2021-01-24 | DI.US_ITS ---
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 TECHNIQUE: Craniocaudal and mediolateral oblique Full Field Digital Mammography views of the left br east with Computer Aided Diagnosis followed by Tomosynthesis and left breast ultrasound. COMPARISON: Priors available for comparison FINDINGS: Mammography/Tomosynthesis: Masses/Architectural Distortion: None seen. Microcalcifictions: No suspicious pleomorphic-type are seen. Skin Thickening/Nipple Retraction: None. Left breast US: Echotexture: Dense fibroglandular tissue is present. Shadowing: No suspicious foci. Cyst: None. Solid lesions: None seen. Ductal dilation: None. IMPRESSION: 1. No evidence of malignancy is noted. 2. A six-month follow-up left mammogram is recommended for re-evaluation. 3. The findings were discussed with the patient on the date of the examination. BI-RADS Category 3 - 6 month - Probably Benign Finding: Recommend follow-up imaging in 6 months Breast Density - Category C - Heterogeneously dense Breast density Category C or D implies that the patient has dense breast tissue. Dense breast tissue can make it harder to find cancer on a mammogram. Dense breast tissue is also associated with an incr eased risk of breast cancer. This information about the result of the mammogram report was provided to the patient to raise their awareness. Use this report when you speak with the patient about their risks for breast cancer, which includes their family history. At that time, you may recommend additional screening tests (Ultrasoun d or MRI) as these tests may add significant information. A negative radiographic report should not delay biopsy if a dominant or clinically suspicious mass is present. Up to ten percent of cancers are not identified on mammography. A negative report may reinforce clinical impression. Adenosis and dense breasts may obscure an underlying neoplasm. False positive reports average 6 to 10%. Patient will receive a letter notifying them of these results.
== END 2021-01-24 02:19 ==
PROVIDERS: PCP Nurse Practitioner Family; Visit Provider Nurse Practitioner Family
DX: R92.8 Other abnormal and inconclusive findings on diagnostic imaging of breast (principal)
CPT/HCPCS: 76642; 77063; 77067

== ENCOUNTER 2021-05-14 16:20 | Outpatient (REF) | payer OTHER, SELFPAY ==
[2021-05-15 16:08] LABS: COVID-19 RT-PCR UVMMC Result Negative (Negative)
== END 2021-05-14 16:21 | disposition home or self-care (01) ==
LOC: NCHCN 16:20
PROVIDERS: PCP Nurse Practitioner Family; Visit Provider Nurse Practitioner Family
DX: Z20.822 Contact with and (suspected) exposure to COVID-19 (principal)
CPT/HCPCS: U0003

== ENCOUNTER 2021-07-25 02:26 | Outpatient (CLI) | payer OTHER, SELFPAY ==
--- NOTE | 2021-07-25 | DI.MAMMO_ITS ---
Exam(s) MG MAMMO DIAGNOSTIC UNI EXAM: MG MAMMO DIAGNOSTIC UNI-LEFT CLINICAL HISTORY: DIAGNOSTIC, 6 MO F/U, ABNL MAMMO, R92.8. TECHNIQUE: Unilateral spot mammographic images were obtained with 3D tomosynthesis technique and uti lizing computer aided detection (CAD). COMPARISON: Prior mammograms were reviewed, the most recent being 01/24/2021. Ultrasound performed on that date was also reviewed FINDINGS: The previously described small nodule posteriorly in left breast is unchanged in size and configurati on. Is probably a benign intramammary lymph node given its lack of change in apparent absence of vis ualization on prior ultrasound. No new additional concerning nodules evident. No malignant-appearing microcalcification group seen i n the left breast and there is no new architectural distortion or skin thickening-traction. IMPRESSION: Stable benign-appearing left breast finding, unchanged from prior study of 01/24/2021. Appropriate follow-up is to keep this patient on her yearly mammogram schedule, this implying that he r next bilateral mammogram would be in December 2021, with earlier imaging if a self detected breast ch hanane is noted.. The patient was informed of the findings and follow-up recommendations prior to [facility]. BI-RADS Category 2 - Benign Findings Breast Density - Category C - Heterogeneously dense Breast density Category C or D implies that the patient has dense breast tissue. Dense breast tissue can make it harder to find cancer on a mammogram. Dense breast tissue is also associated with an incr eased risk of breast cancer. This information about the result of the mammogram report was provided to the patient to raise their awareness. Use this report when you speak with the patient about their risks for breast cancer, which includes their family history. At that time, you may recommend additional screening tests (Ultrasoun d or MRI) as these tests may add significant information. A negative radiographic report should not delay biopsy if a dominant or clinically suspicious mass is present. Up to ten percent of cancers are not identified on mammography. A negative report may reinforce clinical impression. Adenosis and dense breasts may obscure an underlying neoplasm. False positive reports average 6 to 10%. Patient will receive a letter notifying them of these results.
== END 2021-07-25 02:46 ==
LOC: DI 02:27
PROVIDERS: PCP Nurse Practitioner Family; Visit Provider Nurse Practitioner Family
DX: R92.8 Other abnormal and inconclusive findings on diagnostic imaging of breast (principal); N60.82 Other benign mammary dysplasias of left breast
CPT/HCPCS: 77061; 77065; G0279

== ENCOUNTER 2021-09-24 18:25 | Outpatient (REF) | payer OTHER, SELFPAY ==
[2021-09-24 22:08] LABS: Anion Gap 10.5 mmol/L (3-11); BUN 12 mg/dL (7-18); CO2 22.5 mmol/L (21.0-32.0); CREATININE 1.2 mg/dL (0.55-1.02); Calcium 8.8 mg/dL (8.5-10.1); Chloride 106 mmol/L (98-107); Estimated GFR 47.75 (mL/min/1.73m2); Glucose 91 mg/dL (74-106); Potassium 3.8 mmol/L (3.5-5.1); Sodium 139 mmol/L (136-145)
== END 2021-09-24 18:26 | disposition home or self-care (01) ==
LOC: NCHCN 18:25
PROVIDERS: PCP Nurse Practitioner Family; Visit Provider Nurse Practitioner Family
DX: Z01.812 Encounter for preprocedural laboratory examination (principal)
CPT/HCPCS: 80048

== ENCOUNTER 2022-01-24 18:57 | Outpatient (REF) | payer OTHER, SELFPAY ==
--- OUTSIDE RECORDS SUMMARY | 2022-01-24 19:05 | XMS_ITS | Encounter Summary ---
:1970 Author Organization [facility] [place] [address] Care Team Providers Name Role Phone Arie Gold ALFONSO Primary Care Provider [phone] Reason for Visit Reason Comments Breast Mass Encounter Details Date Type Department Care Team Description 04/25/2015 Office Visit General Surgery at [facility] Tonia Suárez, Breast mass [facility] [place] [address] [facility] [phone] GENERAL SURGERY [place] [id number] (Wo rk) Social History Tobacco Use Types Packs/Day Years Used Date Never Smoker Sex Assigned at Date Recorded Not on file documented as of this encounter Progress Notes Tonia Suárez APRN - 04/25/2015 9:10 AM EST Ms. Smith is a 44 y.o. year-old patient who I am seeing at the request of Dr Erika Lee to evaluatea possible mass/axillary fullness on the left. By way of history she has had lumps in both breasts/axillae for the last 10 years. This past year she has been experiencing more fullness and discomfort in her left axillae.Her symptoms are cyclic in nature. She had an US at [facility] in which did not describe any abnormalities but was read as a cat 3 with a 6 month follow up recommended. She was seen by someone at Dr Jorgensen office who did not have a definative diagnosis. She denies any skin changes, new breast masses, breast trauma or nipple discharge. Imaging performed ( bilateral mammogram with focused ultrasound/left)at [facility] [place]15 was interpreted as Category 2 for ectopic axillary tissue on the left. She does have a history of cystic breast tissue and has not had cysts aspirated in the past. She has had a biopsy in her left breast for benign findings last year/Dr Valencia She does do occasional self-breast exams. Recent weight gain of 20 lbs. Since June She has no new or concerning complaints of fatigue, cardiovascular or respiratory symptoms. All other ROS are negative. Reproductive History: , had her first child at the age of 22and did nurse her children. Menarche began at 16.Her LMP was this past week. HRT/OC: none Family History: Negative for ovarian cancer. 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 She does not smoke. Past Medical History: Noncontributory. Past Surgical History: Left breast biopsy Physical Exam: She looks well and is in no apparent distress. Her skin is anicteric with good turgor. Sclera are anicteric. Her head and neck are without masses or adenopathy. Her arms have good ROM without any evidence of lymphedema. Her breasts are generally symmetric. Her nipples are everted. There is no axillary adenopathy on the right or the left. There are no skin changes or dimpling noted in either breast. The left breast is notable for generally homogenous breast tissue,without discrete masses. Well healed scar in the UOQ. There is soft axillary fullness but no masses. Her right breast exam is similar in character to her left breast,without discrete masses. Assessment: Clinical breast exam notable for fibrocystic breast tissue without discrete masses.Left axillary fullness a normal variant related to ectopic breast tissue andrecent weight gain. Plan: I have discussed my assessment and recommendations with Ms. Smith to include occasional self-breast exams and annual clinical breast exams. We discussed how the symptoms she is experiencing are related to benign and cyclic changes and will improve over time. In light of her history and findings, I recommend observation at this time and PRN surgical follow up. She will also contact me if she develops any new masses in her breast. Based on her average risk status,her next bilateral screening mammogram could be done in 03/2016 or sooner if indicated. Ms. Smith agrees to this plan. ARIE GOLD APRN documented in this encounter Plan of Treatment Not on filedocumented as of this encounter Visit Diagnoses Diagnosis Breast mass Lump or mass in breast documented in this encounter Care Teams Yard Truck Driver Relationship Specialty Start Date End Date Arie Gold APRN PCP - General 11/22/14 [address] [place] [address] documented as of this encounter
--- OUTSIDE RECORDS SUMMARY | 2022-01-24 19:05 | XMS_ITS | Encounter Summary ---
:1970 Author Organization [facility] Address [address] [place] [address] Care Team Providers Name Role Phone Chano Lagos MD Primary Care Provider Unavailable Encounter Details Date Type Department Care Team Description 06/28/2013 Hospital Encounter Radiology [place] [facility] [place] [address] Social History Tobacco Use Types Packs/Day Years Used Date Never Assessed Sex Assigned at Date Recorded Not on file documented as of this encounter Plan of Treatment Not on filedocumented as of this encounter Procedures Procedure Name Priority Date/Time Associated Diagnosis Comme nts FILM LIBRARY Routine 06/28/2013 12:00 AM Screening Results for this STORAGE ONLY MAMMO EST procedure are in the results section. documented in this encounter Results Film Library- Storage only Mammo (06/28/2013 12:00 AM EST) Specimen (Source) Anatomical Location Collection Method / Collectio n Time Received Time / Laterality Volume Narrative [facility] - 04/03/2015 1:44 PM EST See PACS for result report. Dr Fairbanks [facility] IMG FILM LIBRARY ORDERABLES Performing Organization Address City/State/ZIP Code Phon e Number [place], [place] documented in this encounter Visit Diagnoses Diagnosis Screening Screening for unspecified condition documented in this encounter Care Teams Correctional Supervising Cook Relationship Specialty Start Date End Date Chano Lagos MD PCP - General 04/02/10 11/21/14 documented as of this encounter
--- OUTSIDE RECORDS SUMMARY | 2022-01-24 19:05 | XMS_ITS | Encounter Summary ---
:1970 Author Organization [facility] Address [address] [place] [address] Care Team Providers Name Role Phone Chano Lagos MD Primary Care Provider Unavailable Encounter Details Date Type Department Care Team Description 06/28/2013 Hospital Encounter Radiology [place] [facility] [address] Social History Tobacco Use Types Packs/Day Years Used Date Never Assessed Sex Assigned at Date Recorded Not on file documented as of this encounter Plan of Treatment Not on filedocumented as of this encounter Procedures Procedure Name Priority Date/Time Associated Diagnosis Comme nts FILM LIBRARY Routine 06/28/2013 12:15 AM Screening Results for this STORAGE ONLY MAMMO EST procedure are in the results section. documented in this encounter Results Film Library- Storage only Mammo (06/28/2013 12:15 AM EST) Specimen (Source) Anatomical Location Collection Method / Collectio n Time Received Time / Laterality Volume Narrative [facility] - 04/03/2015 1:46 PM EST See PACS for result report. Dr Fairbanks [facility] IMG FILM LIBRARY ORDERABLES Performing Organization Address City/State/ZIP Code Phon e Number [place], [place] documented in this encounter Visit Diagnoses Diagnosis Screening Screening for unspecified condition documented in this encounter Care Teams Riprap Placer Relationship Specialty Start Date End Date Chano Lagos MD PCP - General 04/02/10 11/21/14 documented as of this encounter
--- OUTSIDE RECORDS SUMMARY | 2022-01-24 19:05 | XMS_ITS | Encounter Summary ---
:1970 Author Organization [facility] [place] [address] Care Team Providers Name Role Phone Curt Breannsivakumar Perry APRN Primary Care Provider [phone] Encounter Details Date Type Department Care Team Description 08/02/2020 Orders Only Occupational Medicine [place] [address] [place] [address] [phone] Social History Tobacco Use Types Packs/Day Years Used Date Never Smoker Smokeless Tobacco: Never Used Alcohol Use Standard Drinks/Week Comments Yes 0 (1 standard drink = 0.6 oz pure alcoho l) few times a year Alcohol Habits Answer Date Recorded How often do you have a drink containing alcohol? Not asked How many drinks containing alcohol do you have on a Not aske d typical day when you are drinking? How often do you have six or more drinks on one Not asked occasion? Comment: few times a year 06/27/2020 Sex Assigned at Date Recorded Not on file documented as of this encounter Plan of Treatment Not on filedocumented as of this encounter Procedures Procedure Name Priority Date/Time Associated Diagnosis Comme nts QUANTIFERON-TB GOLD Routine 08/02/2020 11:17 AM R esults for this EDT procedure are i n the results section. documented in this encounter Results QuantiFERON-TB Gold (08/02/2020 11:17 AM EDT) [facility] Method Time Signature QFT Nil 0.030 IU/mL [facility] QFT TB Ag1-Nil 0.000 IU/mL [facility] QFT TB Ag2-Nil -0.010 IU/mL [facility] QFT 7.600 IU/mL [facility] Mitogen-Nil [facility] Quantiferon TB Negative Negative [facility] Quantiferon TB M. tuberculosis infection NOT likely [facility] Interjennifer A negative specimen should h ave a TB1 Ag minus Nil value and TB2 Ag minus Nil RDODY value of less than 0.35 IU/mL OR a TB1 Ag minus Nil or TB2 Ag minus Nil value [facility] greater than or equal to 0.35 IU/mL AND a TB Ag minus Nil value from the same HOSPITAL tube of less than 25% of the Nil value. A negative spe cimen must also have a LABORATORY mitogen minus Nil value greater than or equal to 0.5 IU/mL. A negative QFT-Plus result d oes not preclude the possibility of M. tuberculosis infection. False negative re sults can occur due to stage of infection (specimen obtained prior to the development of immune response), co- morbid conditions which affect immune function, or other immunological factors . Comment: The performance of the QFT-Plus assay sharif s not been extensively evaluated with specimens from the following individuals : Individuals who have impaired or altered immune functions, such as those who have HIV infection or AIDS, those who sharif ve transplantation managed with immunosuppressive treatment or others wh o receive immunosuppressive drugs (e.g., corticosteroids, methotrexate, az athioprine, cancer chemotherapy), those who have other clinical conditions, such as diabetes, silicosis, chronic renal failure, and hematological disorders (e. g., leukemia and lymphomas), or those with other specific malignancies (e.g., carcinoma of the head or neck and lung). Individuals younger than age 17 years women. Diagnosis of, or the exclusion of tuberc ulosis disease, and assessment of Latent Tuberculosis Infection (LTBI) req uires a combination of epidemiological, historical, Medical and diagnostic findi ngs that should be taken into account when interpreting QFT-Plus results. Specimen Anatomical Collection Method Collection Time Receive d Time (Source) Location / / Volume Laterality Blood specimen Venous Draw / 08/02/2020 11:17 08/04/19 21 7:13 (specimen) Unknown AM EDT AM EDT Resulting Agency Comment Spec In Lab Inez Justice APRN CHEMISTRY ORDERABLES Performing Organization Address City/State/[place] [address] documented in this encounter Visit Diagnoses Not on filedocumented in this encounter Care Teams Master Printer Relationship Specialty Start Date End Date Breann Elias APRN PCP - General 11/22/14 [address] [place] [address] documented as of this encounter
--- OUTSIDE RECORDS SUMMARY | 2022-01-24 19:05 | XMS_ITS | Encounter Summary ---
:1970 Author Organization [facility] [place] [address] Care Team Providers Name Role Phone Breann Elias APRN Primary Care Provider [phone] Encounter Details Date Type Department Care Team Description 01/04/2020 Ancillary Procedure Radiology Library at Melissa Elias [facility] ALFONSO [facility] [address] [place] [address] [place] [address] [phone] Social History Tobacco Use Types Packs/Day Years Used Date Never Smoker Sex Assigned at Date Recorded Not on file documented as of this encounter Plan of Treatment Not on filedocumented as of this encounter Procedures Procedure Name Priority Date/Time Associated Diagnosis Comme nts FILM LIBRARY Routine 01/04/2020 12:00 AM Results for this STORAGE ONLY MR EDT procedure ar e in KNEE the results section. documented in this encounter Results Film Library- Storage Only MR Knee (01/04/2020 12:00 AM EDT) Specimen (Source) Anatomical Location Collection Method / Collectio n Time Received Time / Laterality Volume Narrative [facility] - 06/13/2020 10:28 AM EST This exam is auto-finalizing. It's purpo se is for storage only. Breann Elias APRN [place] FILM LIBRARY ORDERABLES Performing Organization Address City/State/ZIP Code Phon e Number [place], [place] documented in this encounter Visit Diagnoses Not on filedocumented in this encounter Care Teams Linseed Oil Refiner Relationship Specialty Start Date End Date Breann Elias APRN PCP - General 11/22/14 [address] [place] [address] documented as of this encounter
--- OUTSIDE RECORDS SUMMARY | 2022-01-24 19:05 | XMS_ITS | Encounter Summary ---
:1970 Author Organization [place] [address] Care Team Providers Name Role Phone CurtBreann de los santos ALFONSO Primary Care Provider [phone] Encounter Details Date Type Department Care Team Description 04/06/2015 Hospital Encounter Mammography [place] [facility] Mojgan Coe, Left breast mass [facility] [address] NUCLEAR MEDICINE [phone] [place] [id number] Social History Tobacco Use Types Packs/Day Years Used Date Never Smoker Sex Assigned at Date Recorded Not on file documented as of this encounter Medications at Time of Discharge Medication Sig Dispensed Refills Start Date End Date amitriptyline (ELAVIL) 50 Take 25-50 mg by 0 04/0 11/201406/27/2020 mg Tablet mouth nightly as needed. meloxicam (MOBIC) 7.5 mg Take 1 tablet by 30 tablet 3 01/2906/27/2020 Tablet mouth daily. documented as of this encounter Plan of Treatment Not on filedocumented as of this encounter Procedures Procedure Name Priority Date/Time Associated Diagnosis Comme nts MAMMO US AXILLA Routine 04/06/2015 11:38 AM Left breast mass R esults for this EST procedure are i n the results section. documented in this encounter Results Mammo Ultrasound Of The Axilla (04/06/2015 11:38 AM EST) Anatomical Region Laterality Modality Breast N/A Mammography Specimen (Source) Anatomical Location Collection Method / Collectio n Time Received Time / Laterality Volume Impressions 04/06/2015 1:45 PM EST IMPRESSION: No mammographic or directed ultrasound e vidence of malignancy with sonographically and mammographically luis ign 3 cm island of ectopic tissue accounting for the area of clinical conc naima in the left axilla. Clinical follow-up is advised and the parker coates was encouraged to note this finding at subsequent presentations for mammographic screening since this area should be included in mammographic surve illance. BI-RADS Category 2: Benign Findings Narrative 04/06/2015 1:45 PM EST DIAGNOSTIC ULTRASOUND OF THE BILATERAL BREAST CLINICAL HISTORY: left breast mass. Area has been present for at least 5 years but is increasingly bothersome. COMPARISONS: This study was compared wit h prior images. FINDINGS: The breasts are heterogeneously dense, w hich may obscure small masses. There are no suspicious masses, suspicious microca lcifications, or areas of architectural distortion. There is mammographically st able ectopic glandular tissue in the left axilla. Left axillary ultrasound: High-resolutio n ultrasound of the left axilla was performed and demonstrates sonographical ly unremarkable hyperechoic tissue, corresponding to the area of clinical co ncern. This measures 3 cm in diameter and 1 cm deep and is immediately deep to the skin. Mojgan Coe MD IMG MAMMO ORDERABLES documented in this encounter Visit Diagnoses Diagnosis Left breast mass Lump or mass in breast documented in this encounter Care Teams Batter Mixer Helper Relationship Specialty Start Date End Date Breann Elias, THREAD GRINDER PCP - General 11/22/14 [address] [place] [address] documented as of this encounter
--- OUTSIDE RECORDS SUMMARY | 2022-01-24 19:05 | XMS_ITS | Encounter Summary ---
:1970 Author Organization [place] [address] Care Team Providers Name Role Phone Curt Breannsivakumar Perry APRN Primary Care Provider [phone] Encounter Details Date Type Department Care Team Description 08/02/2020 Orders Only Occupational Medicine [place] [address] [place] [address] [phone] Social History Tobacco Use Types Packs/Day Years [...] Name Priority Date/Time Associated Diagnosis Comme nts MEASLES (RUBEOLA) Routine 08/02/2020 11:17 AM Res ults for this ANTIBODY, IGG EDT procedure are in the results section. documented in this encounter Results Measles (Rubeola) Antibody, IgG (08/02/2020 11:17 AM EDT) P athologist Signature Rubeola IgG Pos Pos [facility] Comment: Expected Values: A Negative res ult indicates non-immunity. Specimen Anatomical Collection Method Collection Time Receive d Time (Source) Location / / Volume Laterality Blood specimen Venous Draw / 08/02/2020 11:17 08/03/19 21 1:33 (specimen) Unknown AM EDT PM EDT Resulting Agency Comment Spec In Lab Inez Justice [facility] IMMUNOLOGY ORDERABLES Performing Organization Address City/State/[place] [address] documented in this encounter Visit Diagnoses Not on filedocumented in this encounter Care Teams Terrazzo Tile Setter Relationship Specialty Start Date End Date Breann Elias APRN PCP - General 11/22/14 [address] [place] [address] documented as of this encounter
--- OUTSIDE RECORDS SUMMARY | 2022-01-24 19:05 | XMS_ITS | Encounter Summary ---
:1970 Author Organization [facility] [place] [address] Care Team Providers Name Role Phone Breann Elias APRN Primary Care Provider [phone] Encounter Details Date Type Department Care Team Description 04/03/2015 External Results Radiology Library at [facility] Provider, [place] [address] Social History Tobacco Use Types Packs/Day Years Used Date Never Smoker Sex Assigned at Date Recorded Not on file documented as of this encounter Plan of Treatment Not on filedocumented as of this encounter Procedures Procedure Name Priority Date/Time Associated Diagnosis Comme nts ULTRASOUND SCAN (SCAN) Routine 07/25/2013 MAMMOGRAM SCAN Routine 06/17/2013 documented in this encounter Results Scan Doc: Ultrasound (07/25/2013) Anatomical Region Laterality Modality Other Narrative This result has an attachment that is no t available. Scanning Provider MEDIA MGR SCAN EXT ORDR/RSLT Scan Doc: Mammogram (06/17/2013) Anatomical Region Laterality Modality Other Narrative This result has an attachment that is no t available. Scanning Provider MEDIA MGR SCAN EXT ORDR/RSLT documented in this encounter Visit Diagnoses Not on filedocumented in this encounter Care Teams Chemical Treatment Plant Technician Relationship Specialty Start Date End Date Breann Elias APRN PCP - General 11/22/14 [address] [place] [address] documented as of this encounter
--- OUTSIDE RECORDS SUMMARY | 2022-01-24 19:05 | XMS_ITS | Encounter Summary ---
:1970 Author Organization [facility] [place] [address] Care Team Providers Name Role Phone Breann Elias APRN Primary Care Provider [phone] Reason for Referral Physical Therapy (Routine) - Specialty Diagnoses / Procedures Referred By Contact Refer red To Contact Diagnoses Right knee pain, unspecified chronicity Knee stiffness, right S/P ACL reconstruction Tonia Solano APRN [facility] [place] [address] Referral ID Status Reason Start Date Expiration Date Visits V isits Requested Authorized [id number] Evaluate and 06/27/2020 12/24/2020 12 12 Treat Non PCP Physical Therapy (Routine) - Closed Specialty Diagnoses / Procedures Referred By Contact Refer red To Contact Orthopaedics Diagnoses Right knee pain, unspecified chronicity clinic 06/27?? Luther Bonilla MD [facility] [address] [place] [address] [place] [address] [place] [address] Referral ID Status Reason Start Date Expiration Date Visits V isits Requested Authorized [id number] Closed Evaluate and 06/27/2020 06/27/2021 12 12 Treat Reason for Visit Reason Comments Establish Care R Knee DOI 12/10/2019 ACL DOS 03/08/20 XR 12/13/19 MRI 01/03/21 2nd opinion Consultation (Routine) - Closed Specialty Diagnoses / Procedures Referred By Contact Refer red To Contact Orthopaedics Diagnoses Sprain of anterior cruciate ligament of right knee, subsequent encounter Contracture, right knee right knee Ferny Navarrete MD Ames, James B, MD [address] [facility] [address] [place], [place] ORTHOPAEDIC SURGERY [address] [place] [address] Fax: Referral ID Status Reason Start Date Expiration Date Visits V isits Requested Authorized [id number] Closed Consult, Test 05/22/2020 05/22/2021 6 6 [facility] PCP Updated and/or Approved Encounter Details Date Type Department Care Team Description 06/27/2020 Office Visit Orthopaedics at [facility], Dr Thomason knee pain, unspecified chronicity (Primary Dx); [facility] Bonilla Team Knee stiffness, right; Drive None [place] [address] Social History Tobacco Use Types Packs/Day [...] on file documented as of this encounter Last Filed Vital Signs Vital Sign Reading Time Taken Comments Blood Pressure 117/31 06/27/2020 10:23 AM EST Pulse 84 06/27/2020 10:23 AM EST Temperature - - Respiratory Rate - - Oxygen Saturation - - Inhaled Oxygen Concentration - - Weight 59 kg (130 lb) 06/27/2020 10:23 AM EST Height 152.4 cm (5') 06/27/2020 10:23 AM EST Body Mass Index 25.39 06/27/2020 10:23 AM EST documented in this encounter Progress Notes Tonia Solano, LEAD NUCLEAR MEDICINE TECHNOLOGIST - 06/27/2020 10:40 AM EST Visit Date: 06/27/20 CC: Right knee stiffness Staff: Today's covering physician is Dr. Bonilla. Onset: 12/10/19 HPI: Johanne Smith is a 49 y.o. female, with a past medical history of anxiety and depression, who presents to clinic with complaints of right knee stiffness and secondarily pain. Briefly, patient injured her knee on December 092019 when she was getting out of her kayak, she twisted the knee and felt a popping sensation and fell. She had difficulty weightbearing following this incident and noted immediate swelling. She went and saw her primary care provider who referred her to Dr. Pierre who ultimately diagnosed her with a patellofemoral injury and sent her to PT. At that juncture she was complaining of difficulty with knee flexion and pain. At 3 weeks post injury she went for another opinion after undergoing MRI and saw Dr. Navarrete who diagnosed her with an ACL tear. She is very stiff and so she did additional physical therapy and finally underwent ACL reconstruction with allograft on February. Postoperatively she continued to struggle with motion though it was somewhat better than it was preoperatively. She ultimately underwent manipulation under anesthesia on 07 June 2020 where hermotion was approximately 0 to 130 degrees flexion. Post manipulation, as she continues to work with physical therapy and reports that she can flex the knee to 115 degrees but she can still not achieve full extension. She denies any instability but she does have pain and difficulty with going up and down stairs and does not really trust the knee. Also notes some coolness to foot, but no skin changes. She has been taking anti-inflammatories as needed and prior to PT session she is taking pain medications and Valium to help relax the leg. She denies any mechanical symptoms or persistent swelling. She is here today for a second opinion. ROS: Negative for fever, chills, SOB, chest pain, nausea, vomiting, and diarrhea. Current Outpatient Medications: ??? buPROPion (Wellbutrin) 100 mg Tablet, Take by mouth., Disp: , Rfl: ??? hydrOXYzine (Atarax) 25 mg Tablet, TAKE 1 TABLET BY MOUTH THREE TIMES DAILY NEEDED, Disp: , Rfl: ??? ibuprofen (Advil;Motrin) 800 mg Tablet, Take by mouth., Disp: , Rfl: ??? Microgestin 05/30, , 1-20 mg-mcg Tablet, TAKE 1 TABLET BY MOUTH ONCE DAILY, Disp: , Rfl: ??? topiramate (Topamax) 100 mg Tablet, Take by mouth., Disp: , Rfl: Allergies Allergen Reactions ??? Morphine Other reaction(s): Hallucinations ??? Oxycodone Other reaction(s): Hallucinations, things crawling on skin ??? Penicillins Other reaction(s): Anaphylaxsis ??? Sulfamethoxazole Other reaction(s): Itching ??? Trimethoprim Other reaction(s): Itching PMH: Depression, Anxiety. Past Surgical History: Procedure Laterality Date ??? BREAST CYST EXCISION Left 2013 Family History Problem (# of Occurrences) Relation (Name,Age of Onset) Breast Cancer (1) Maternal Grandmother Negative family history of: Diabetes Social History Occupational History ??? Works for [employer] Tobacco Use ??? Smoking status: Never Smoker ??? Smokeless tobacco: Never Used Substance and Sexual Activity ??? Alcohol use: Yes Comment: few times a year ??? Drug use: Never Blood pressure (!) 117/31, pulse 84, height 152.4 cm (5'), weight 59 kg (130 lb). Exam: Alert and oriented x4. No apparent distress. Gait is antalgic with assist. She walks on the ball of her foot. Examination of the right knee and lower extremity reveals well-healed arthroscopy andsurgical incisions. Skin is intact. No joint effusion. Appears very guarded with inversion of her foot and internal rotation of her hip and tibia. Range of motion includes approximately 5 degrees shy of extension to 115 to 120 degrees passive flexion. She is nontender to palpation of medial or lateraljoint line. Knee stable to varus and valgus stress. Very stable anterior drawer and Janette's exam. Negative posterior drawer. Patella mobilization is difficult and stiff. Negative patellar grind test.Calf supple nontender. Straight leg raise with some lag. DP PT pulses 2+ to palpation. Distal sensation intact light touch in all nerve distributions. Imaging: No new imaging. Preoperative MRI of the patient's right knee from December 2019 reviewed revealing complete ACL rupture. No stigmata of transient patellar subluxation or dislocation. Articular cartilage surfaces are relatively well-preserved. There does appear to be abnormal signal in the posterior horn of the medial and lateral menisci. PCL, MCL, LCL intact. Assessment/Plan: 49-year-old female with an approximate 6-month history of acute onset right knee stiffness and secondarily pain following acute injury getting out of a kayak and subsequent ACL reconstruction with allograft in February 2020 and then manipulation under anesthesia in late May 2020. Patient seen by myself and Dr. Bonilla. At this juncture, recommended to continue conservative management with additional physical therapy for assistance with range of motion, use of a dynamic extension brace and watchful waiting. In examination today, patient appears to be quite guarded with her motion and demonstrates an abnormal gait that would contribute to hamstring contraction and further difficulty with achieving full extension. Would recommend against additional surgical intervention such as arthroscopic lysis of adhesions and another manipulation under anesthesia as this would cause more trauma to the joint and potentially worsen her issue with stiffness. Discussed that her graft feels very much intact and pain seems to be very manageable. She demonstrates no signs of allodynia or CRPS on exam today. Discussed potential for aquatic therapy. F/U prn. documented in this encounter Plan of Treatment Scheduled Referrals Name Type Priority Associated Diagnoses Order S chedule Referral to Outpatient Referral Routine Right Knee Pain, Orde red: Physical Therapy Unspecified Chronicity 0 06/27/2020 Referral to Outpatient Referral Routine Right Knee Pain, Orde red: Physical Therapy Unspecified Chr onicity 06/27/2020 Knee stiffness, right S/P ACL reconstruction documented as of this encounter Visit Diagnoses Diagnosis Right knee pain, unspecified chronicity - Primary Knee stiffness, right S/P ACL reconstruction Other postprocedural status documented in this encounter Care Teams Waredresser Relationship Specialty Start Date End Date Breann Elias APRN PCP - General 11/22/14 [address] [place] [address] documented as of this encounter
--- OUTSIDE RECORDS SUMMARY | 2022-01-24 19:05 | XMS_ITS | Encounter Summary ---
:1970 Author Organization [facility] [place] [address] Care Team Providers Name Role Phone Breann Elias APRN Primary Care Provider [phone] Encounter Details Date Type Department Care Team Description 12/13/2019 Ancillary Procedure Radiology Library at Melissa Elias [facility] ALFONSO [facility] [address] [place] [address] [place] [address] [phone] Social History Tobacco Use Types Packs/Day Years Used Date Never Smoker Sex Assigned at Date Recorded Not on file documented as of this encounter Plan of Treatment Not on filedocumented as of this encounter Procedures Procedure Name Priority Date/Time Associated Diagnosis Comme nts FILM LIBRARY Routine 12/13/2019 12:00 AM Results for this STORAGE ONLY DX EDT procedure ar e in KNEE the results section. documented in this encounter Results Film Library- Storage Only DX Knee (12/13/2019 12:00 AM EDT) Specimen (Source) Anatomical Location Collection Method / Collectio n Time Received Time / Laterality Volume Narrative EARNESTINE - 06/13/2020 10:26 AM EST This exam is auto-finalizing. It's purpo se is for storage only. Breann Elias APRN [place] FILM LIBRARY ORDERABLES Performing Organization Address City/State/ZIP Code Phon e Number [place], [place] documented in this encounter Visit Diagnoses Not on filedocumented in this encounter Care Teams Barrel Brander Relationship Specialty Start Date End Date Breann Elias APRN PCP - General 11/22/14 [address] [place] [address] documented as of this encounter
--- OUTSIDE RECORDS SUMMARY | 2022-01-24 19:05 | XMS_ITS | Encounter Summary ---
:1970 Author Organization [facility] [place] [address] Care Team Providers Name Role Phone Curt Breannsivakumar Perry APRN Primary Care Provider [phone] Encounter Details Date Type Department Care Team Description 08/02/2020 Orders Only Occupational Medicine at [place] [address] [place] [address] [phone] Social History Tobacco Use Types Packs/Day Years [...] Name Priority Date/Time Associated Diagnosis Comme nts RUBELLA ANTIBODY, Routine 08/02/2020 11:17 AM Res ults for this IGG EDT procedure are i n the results section. documented in this encounter Results Rubella Antibody, IgG (08/02/2020 11:17 AM EDT) athologist Signature Rubella IgG Positive Positive [facility] Comment: Please note: ??A positive result for thi s assay indicates that antibody levels are >or= 10.0 IU/mL and is considered to be an indicator of positive immune status. Specimen Anatomical Collection Method Collection Time Receive d Time (Source) Location / / Volume Laterality Blood specimen Venous Draw / 08/02/2020 11:17 08/03/19 21 (specimen) Unknown AM EDT 12:02 PM EDT Resulting Agency Comment Spec In Lab Inez Justice APRN IMMUNOLOGY ORDERABLES Performing Organization Address City/State/[facility] [place] [address] documented in this encounter Visit Diagnoses Not on filedocumented in this encounter Care Teams Oven Worker Relationship Specialty Start Date End Date Breann Elias APRN PCP - General 11/22/14 [address] [place] [address] documented as of this encounter
--- OUTSIDE RECORDS SUMMARY | 2022-01-24 19:05 | XMS_ITS | Encounter Summary ---
:1970 Author Organization [facility] Address [address] [place] [address] Care Team Providers Name Role Phone Curt Breann H ALFONSO Primary Care Provider [phone] Encounter Details Date Type Department Care Team Description 04/03/2015 Hospital Encounter Radiology Library at [facility] [place] [place] Erika Lee MD Breast lump [facility] [address] [place] [address] [place] [address] [phone] Social History Tobacco Use Types Packs/Day Years [...] Name Priority Date/Time Associated Diagnosis Comme nts REQUEST FOR 2ND Routine 04/03/2015 2:01 PM Breast lump Result s for this READ MAMMO EST procedure are i n the results section. documented in this encounter Results Request for 2nd read Mammo (04/03/2015 2:01 PM EST) Anatomical Region Laterality Modality Computed Tomography Specimen (Source) Anatomical Location Collection Method / Collectio n Time Received Time / Laterality Volume Narrative 04/03/2015 4:46 PM EST INTERPRETATION OF OUTSIDE MAMMOGRAMS AND/OR ULTRASOUND I have been asked to consult on this pat ient by Dr. Garcia because he/she believes a review of this study may bah ge or alter the care of this patient. STUDIES FROM: [facility] DATES: Left breast ultrasound from 2014 CLINICAL HISTORY: LEFT BREAST PALP ABNOR MALITY., PATIENT WANTS 2ND OPINION AT [facility] [place] [place]. PLEASE CALL THE PATIENT (c), QUESTION BX?, What Modality is the exam? Mammography, Body Part (please add comments as necessary): BREAST, I believe a reinterpretation of this exam may alter care of Patient. Yes. ??By report, the patient has a large tender m ass in the left axilla left axillary tail VIEWS OBTAINED: Left breast limited ultrasound only COMPARISONS: None FINDINGS ULTRASOUND: Several which is of the left axilla show what appears to be a normal small lymph node but certainly no large mass. Howeve r these images do not correlate with the history of a large axillary/left breast tail mass mass and no mammogram was performed. Additional imaging including a left breast mammogram and repeat ultrasound is recommended DIAGNOSTIC SUMMARY: BI-RADS Category 0: Incomplete-need estefania tional imaging Procedure Note Mojgan Coe MD - 04/03/2015Formattin g of this note might be different from the original. INTERPRETATION OF OUTSIDE MAMMOGRAMS AND /OR ULTRASOUND I have been asked to consult on this pat ient by Dr. Garcia because he/she believes a review of this study may bah ge or alter the care of this patient. STUDIES FROM: [facility] DATES: Left breast ultrasound from 2014 CLINICAL HISTORY: LEFT BREAST PALP ABNOR MALITY., PATIENT WANTS 2ND OPINION AT [facility] [place] [place]. PLEASE CALL THE PATIENT (c), QUESTION BX?, What Modality is the exam? Mammography, Body Part (please add comments as necessary): BREAST, I believe a reinterpretation of this exam may alter care of Patient. Yes. By report, the patient has a large tender m ass in the left axilla left axillary tail VIEWS OBTAINED: Left breast limited ultrasound only COMPARISONS: None FINDINGS ULTRASOUND: Several which is of the left axilla show what appears to be a normal small lymph node but certainly no large mass. Howeve r these images do not correlate with the history of a large axillary/left breast tail mass mass and no mammogram was performed. Additional imaging including a left breast mammogram and repeat ultrasound is recommended DIAGNOSTIC SUMMARY: BI-RADS Category 0: Incomplete-need estefania tional imaging Erika Lee MD IMG OUTSIDE INTERPRETATION O RDERABLES documented in this encounter Visit Diagnoses Diagnosis Breast lump Lump or mass in breast documented in this encounter Care Teams Dye Range Feeder Relationship Specialty Start Date End Date Breann Elias APRN PCP - General 11/22/14 [address] [place] [address] documented as of this encounter
--- OUTSIDE RECORDS SUMMARY | 2022-01-24 19:05 | XMS_ITS | Encounter Summary ---
:1970 Author Organization [facility] [place] [address] Care Team Providers Name Role Phone Curt Breannsivakumar Perry APRN Primary Care Provider [phone] Encounter Details Date Type Department Care Team Description 08/02/2020 Orders Only Occupational Medicine [place] [address] [place] [address] [phone] Social History Tobacco Use Types Packs/Day Years [...] Name Priority Date/Time Associated Diagnosis Comme nts HEPATITIS B SURFACE Routine 08/02/2020 11:17 AM R esults for this ANTIBODY EDT procedure are i n the results section. documented in this encounter Results Hepatitis B Surface Antibody (08/02/2020 11:17 AM EDT) P athologist Signature HepB Surface 326.3 IU/L BRADLEY PEREYRA Ab Quant [facility] Comment: HepB Surface Ab Quant: Unvaccinated: < 8.5 IU/L Vaccinated: > 11.5 IU/L HepB Surface Ab Positive [facility] Comment: Patient is considered to be immune to HB V infection. Expected Results: Vaccinated: Positive Unvaccinated: Negative Specimen Anatomical Collection Method Collection Time Receive d Time (Source) Location / / Volume Laterality Blood specimen Venous Draw / 08/02/2020 11:17 08/03/19 21 (specimen) Unknown AM EDT 12:02 PM EDT Resulting Agency Comment Spec In Lab Inez Justice APRN IMMUNOLOGY ORDERABLES Performing Organization Address City/State/[place] [address] documented in this encounter Visit Diagnoses Not on filedocumented in this encounter Care Teams Chalker Soles Relationship Specialty Start Date End Date Breann Elias APRN PCP - General 11/22/14 [address] [place] [address] documented as of this encounter
--- OUTSIDE RECORDS SUMMARY | 2022-01-24 19:05 | XMS_ITS | Encounter Summary ---
:1970 Author Organization [facility] Address [address] [place] [address] Care Team Providers Name Role Phone Chano Lagos MD Primary Care Provider Unavailable Encounter Details Date Type Department Care Team Description 06/17/2013 Hospital Encounter Radiology Library at [facility] [place] [address] Social History Tobacco Use Types Packs/Day Years Used Date Never Assessed Sex Assigned at Date Recorded Not on file documented as of this encounter Plan of Treatment Not on filedocumented as of this encounter Procedures Procedure Name Priority Date/Time Associated Diagnosis Comme nts FILM LIBRARY Routine 06/17/2013 12:00 AM Screening Results for this STORAGE ONLY MAMMO EST procedure are in the results section. documented in this encounter Results Film Library- Storage only Mammo (06/17/2013 12:00 AM EST) Specimen (Source) Anatomical Location Collection Method / Collectio n Time Received Time / Laterality Volume Narrative [facility] - 04/03/2015 1:47 PM EST See PACS for result report. Dr Fairbanks [facility] IMG FILM LIBRARY ORDERABLES Performing Organization Address City/State/ZIP Code Phon e Number [place], [place] documented in this encounter Visit Diagnoses Diagnosis Screening Screening for unspecified condition documented in this encounter Care Teams Cocoa Mill Operator Relationship Specialty Start Date End Date Chano Lagos MD PCP - General 04/02/10 11/21/14 documented as of this encounter
--- OUTSIDE RECORDS SUMMARY | 2022-01-24 19:05 | XMS_ITS | Encounter Summary ---
:1970 Author Organization [facility] Address [address] [place] [address] Care Team Providers Name Role Phone Chano Lagos MD Primary Care Provider Unavailable Encounter Details Date Type Department Care Team Description 06/17/2013 Hospital Encounter Radiology Library at [facility] [place] [address] Social History Tobacco Use Types Packs/Day Years Used Date Never Assessed Sex Assigned at Date Recorded Not on file documented as of this encounter Plan of Treatment Not on filedocumented as of this encounter Procedures Procedure Name Priority Date/Time Associated Diagnosis Comme nts FILM LIBRARY Routine 06/17/2013 12:15 AM Screening Results for this STORAGE ONLY MAMMO EST procedure are in the results section. documented in this encounter Results Film Library- Storage only Mammo (06/17/2013 12:15 AM EST) Specimen (Source) Anatomical Location Collection Method / Collectio n Time Received Time / Laterality Volume Narrative [facility] - 04/03/2015 1:52 PM EST See PACS for result report. Dr Fairbanks [facility] IMG FILM LIBRARY ORDERABLES Performing Organization Address City/State/ZIP Code Phon e Number [place], [place] documented in this encounter Visit Diagnoses Diagnosis Screening Screening for unspecified condition documented in this encounter Care Teams Shank Inspector Relationship Specialty Start Date End Date Chano Lagos MD PCP - General 04/02/10 11/21/14 documented as of this encounter
--- OUTSIDE RECORDS SUMMARY | 2022-01-24 19:05 | XMS_ITS | Encounter Summary ---
:1970 Author Organization [facility] Address [address] [facility] [place] [address] Care Team Providers Name Role Phone Arie Gold ALFONSO Primary Care Provider [phone] Encounter Details Date Type Department Care Team Description 01/29/2015 Office Visit Rheumatology [place] [facility] Oswaldo Clemente Positive MARCELLA (antinuclear an tibody); One [facility] N II DO Arthralgia; Drive ONE [facility] Primary osteoarthritis invol ving multiple joints; [place] [address] CENTER Non-restorative sleep [phone] [place] [address] Social History Tobacco Use Types Packs/Day Years Used Date Never Smoker Sex Assigned at Date Recorded Not on file documented as of this encounter Last Filed Vital Signs Vital Sign Reading Time Taken Comments Blood Pressure 111/41 01/29/2015 8:05 AM EDT Pulse 50 01/29/2015 8:05 AM EDT Temperature 36.8 ??C (98.3 ??F) 01/29/2015 8:05 AM EDT Respiratory Rate - - Oxygen Saturation 100% 01/29/2015 8:05 AM EDT Inhaled Oxygen Concentration - - Weight 61.7 kg (136 lb) 01/29/2015 8:05 AM EDT Height 151.1 cm (4' 11.5) 01/29/2015 8:05 AM EDT Body Mass Index 27.01 01/29/2015 8:05 AM EDT documented in this encounter Progress Notes Oswaldo Clemente II, DO - 01/29/2015 8:18 AM EDT Rheumatology Outpatient Consultation Note Reason for Consult: The patient is seen at the request of ARIE GOLD APRN (General) for evaluation of widespread pain in the setting of a positive MARCELLA. History of Present Illness: Johanne Smith is a 44 y.o. female who presents today for evaluation of widespread pain in the settingof a positive MARCELLA. She reports that for as long as she can remember, she has crepitus in her neck when she turns it, more recently, she finds that she has pain with rotation in both directions. She hasbeen having low back pain over the past year - feels stiff in the morning which lasts for ~ 1 hr - less when she is getting ready for work. Pain in the DIPs and PIPs of her R 2nd, 3rd, and 4th fingers - feels like they are sprained. She had gone to a wedding and done some dancing, and the next morninghad pain in the knee. She has taken Ibuprofen which is sometimes is helpful. Previously walked on a treadmill- now, unable to do this because of fatigue and pain - knees, lower back and feet. Feels like things in her life are good. No preceding illness. She also had periodic episodes when she is generally sensitive to all touch, and in fact light touch can be painful. Tried mirena for irregular periods - removed in November because of weight gain, she subsequently started OCPs, and then stopped those as well. She has been using amitriptyline for sleep, though not takingit nightly. Previously on trazodone - not effective. Non-restorative sleep has been an issue for a long time. Has had easy bruising, (-)blood clots, (-)miscarriages ROS: General (+)fevers - > 100.5 2-3 times over the past 6 months, (+)night sweats - weekly - since Jun, (+)wt gain - 25 lbs since the beginning of the year. HEENT (-)inflammatory eye disease, (-)epistaxis, (-)sore throat, (-)bleeding gums, (-)oral ulcers, (-)dry eyes, (-)dry mouth, (-)dysphagia, (+)GERD, (-)photo sensitivity CVS (-)chest pain, (-)palpitations Pulm (-)shortness of breath, (+)NUÑEZ - with flights of stairs, (-)wheezes, (- )cough, (-)pleuritic pain GI (-)N/V, (-)abdominal pain, (-)hematemesis, (- )hematochezia,(+)constipation/diarrhea, recent colo - polyp, upper endoscopy - some stomach irritation. (-)hematuria, (-)dysuria MS (-)muscle weakness, (-)paralysis, (+)joint pain- as above Endo (-)thyroid disorders, (-)diabetes Neuro (-)focal weakness, (+)paresthesias - b/l hands at night, (-)gait instability. Skin (-)Raynaud's, (-)rashes -psoriasis Family Hx: M:RA, OA and fibromyalgia F: of colon ca and CA Siblings:No major medical problems (-)lupus, (-)scleroderma, (-)sjogren's, (-)gout, (-), (-) family hx of back pain. Social Hx: (-)Smoking, (+)EtOH - 2-3 drinks per week, (-)drugs Physical Examination: BP 111/41 mmHg Pulse 50 Temp(Src) 36.8 ??C (98.3 ??F) (Oral) Ht 151.1 cm (4' 11.5) Wt 61.689 kg (136 lb) BMI 27.02 kg/m2 SpO2 100% General: AAOx3, NAD, very pleasant woman sitting comfortably. HEENT: (-)scleral injection, Mucous membranes are moist, no oral mucosal ulcerations Skin: (-)ulcers, (-)rash Neck: Supple, no lymphadenopathy, full range of motion - side bending and rotation cause pain. Cardiovascular: RR, (-)murmurs, rubs, or gallops. Lungs: Clear to auscultation bilaterally. (-)R/R/W Back: Mild tenderness over the paraspinal muscles. Neuro: Alert and oriented x3. Strength 5/5 throughout. Extremities: Shoulders: FROM, non-tender to palpation Elbows:FROM, (-)pain, (-)nodules Wrists: FROM, no swelling, non-tender Hands: No synovitis, no MCP compression tenderness, full claw and fist. Normal nail fold capillaries. Hips: FROM Knees: (-)effusions, non-tender ROM Ankles: FROM, non-tender, no swelling Feet: no MTP compression tenderness, (-)toe splaying Several fibromyalgia tenderpoints Laboratory Data: MARCELLA:1:320 RF: Negative CRP:0.92 mg/dL ESR:19 Impression: Johanne Smith is a 44 y.o. female who presents today with non-restorative sleep and arthralgias without signs or symptoms of an inflammatory arthritis. Her inflammatory markers are normal (CRP <10 mg/L) and while her MARCELLA is positive, she has no signs or symptoms of lupus and is of unclear clinical significance. We will check an FRENCH today to see if there are other antibodies associated with the positive MARCELLA. I suspect that her global wide spread pain is along the fibromyalgia spectrum and is likelyworsened by her chronic non-restorative sleep. She likely has some component of osteoarthritis, and I have recommended a trial of scheduled NSAIDs, and we will start with Meloxicam 7.5mg PO QD and increase to 15mg PO QD if needed. We also discussed consideration of a sleep study, and a gradual return to exercise. Recommendations: Osteoarthritis, fibromyalgia, non-restorative sleep ? Start Meloxicam 7.5mg PO QD, increase to 15mg PO QD if needed ? Consider sleep study. ? Gradual return to exercise CC: ARIE GOLD APRN (General) Negative FRENCH panel, with negative: SS-A/Ro Ab SS-B/La Ab Sm Ab, IgG MAILER Ab, IgG Scl 70 Ab, IgG Marcelina 1 Ab, IgG documented in this encounter Plan of Treatment Not on filedocumented as of this encounter Procedures Procedure Name Priority Date/Time Associated Comments Diagnosis EXTRACTABLE NUCLEAR Routine 01/29/2015 9:12 AM Positive MARCELLA Re sults for this ANTIGEN (FRENCH) AB EDT (antinuclear procedure a re in antibody) the results Arthralgia section. documented in this encounter Results Extractable Nuclear Antigen (FRENCH) Ab (01/29/2015 9:12 AM EDT) [facility] Method Time Signature FRENCH Ab CERNER Test ?Result ?Flag ??Unit ??RefValue MILLENNIUM Ab to Extractable Nuclear Ag Eval,S ??SS-A/Ro Ab, IgG, S ?<0.2 ?U -- REFERENCE VALUE -- <1.0 (Negative) ??SS-B/La Ab, IgG, S ?<0.2 ?U -- REFERENCE VALUE -- <1.0 (Negative) ??Sm Ab, IgG, S ? <0.2 ? U -- REFERENCE VALUE -- <1.0 (Negative) ??MAILER Ab, IgG, S ?0.2 ? U -- REFERENCE VALUE -- <1.0 (Negative) ??Scl 70 Ab, IgG, S ? <0.2 ?U -- REFERENCE VALUE -- <1.0 (Negative) ??Marcelina 1 Ab, IgG, S ? <0.2 ?U -- REFERENCE VALUE -- <1.0 (Negative) Test Performed by: [facility] [address], [place], [place] [address] Snuff Blender: Flores Ramesh, Ph.D. Specimen Anatomical Collection Method Collection Time Receive d Time (Source) Location / / Volume Laterality Blood specimen 01/29/2015 9:12 AM 015 (specimen) EDT 10:15 AM EDT Resulting Agency Comment Spec In Lab Oswaldo Clemente II, DO IMMUNOLOGY ORDERABLES Performing Organization Address City/State/ZIP Code Phon e Number [place] [phone] [facility] documented in this encounter Visit Diagnoses Diagnosis Positive MARCELLA (antinuclear antibody) Other and unspecified nonspecific immuno logical findings Arthralgia Pain in joint, site unspecified Primary osteoarthritis involving multipl e joints Non-restorative sleep Other sleep disturbances documented in this encounter Care Teams Physician Representative Relationship Specialty Start Date End Date Arie Gold APRN PCP - General 11/22/14 [address] [place] [address] documented as of this encounter
--- OUTSIDE RECORDS SUMMARY | 2022-01-24 19:05 | XMS_ITS | Encounter Summary ---
:1970 Author Organization [facility] [place] [address] Care Team Providers Name Role Phone Breann Elias APRN Primary Care Provider [phone] Encounter Details Date Type Department Care Team Description 04/03/2015 Orders Only Mammography at [facility] Mojgan [place] [address] NUCLEAR MEDICINE [place] [address] (Wo rk) Social History Tobacco Use Types Packs/Day Years Used Date Never Smoker Sex Assigned at Date Recorded Not on file documented as of this encounter Plan of Treatment Not on filedocumented as of this encounter Visit Diagnoses Diagnosis Left breast mass Lump or mass in breast documented in this encounter Care Teams Surgical Consultant Relationship Specialty Start Date End Date Breann Elias APRN PCP - General 11/22/14 [address] [place] [address] documented as of this encounter
--- OUTSIDE RECORDS SUMMARY | 2022-01-24 19:05 | XMS_ITS | Encounter Summary ---
:1970 Author Organization [facility] [place] [address] Care Team Providers Name Role Phone Breann Elias APRN Primary Care Provider [phone] Reason for Visit Physical Therapy (Routine) - Closed Specialty Diagnoses / Procedures Referred By Contact Refer red To Contact Orthopaedics Diagnoses Right knee pain, unspecified chronicity clinic 06/27?? Luther Bonilla MD [facility] Orthopaedics 3d [facility] D [facility] [place] [address] [place] [address] Referral ID Status Reason Start Date Expiration Date Visits V isits Requested Authorized [id number] Closed Evaluate and 06/27/2020 06/27/2021 12 12 Treat Encounter Details Date Type Department Care Team Description 06/27/2020 Office Visit [place] [facility] [place]ie Allen Right knee pain, unspecified chronicity; [facility] J, PT Knee stiffness, right; [facility] S/P ACL reconstruction [place], [place] CENTER [address] PHYSICAL MEDICINE [phone] & [place] [address] Social History Tobacco Use Types Packs/Day Years [...] on file documented as of this encounter Miscellaneous Notes Initial Evaluation - Elie Allen, PT - 06/27/2020 11:00 AM EST INITIAL [facility] VISIT: 06/27/2020 CHIEF COMPLAINT: Right knee stiffness DIAGNOSIS: R ACLR 03/08/2020 (Ferny Navarrete MD [facility])- had manipulation on 06/04/2020 SUBJECTIVE: Patient reports that she still cannot straighten or bend her right knee completely sinceACL surgery and manipulation 3 months later despite receiving PT that she still goes to once a week. OBJECTIVE: This patient was seen in the [facility]TS MED[facility]INE CLINIC for second opinion and the PHYSICAL THERAPY PLAN was formulated in conjunction with the referring ORTHOPEDIC PROVIDER after a thorough andcomplete EXAM including review of radiology reports. Therex: Strength / Endurance / ROM PT -- 15 minutes ([phone]). The patient was instructed in an appropriate PT home exercise program Consisting of #1 quad sets in prone to relax hamstring guarding #2 assisted flexion using opposite lower extremity in prone #3 terminal knee EXT standing on black Thera-Band and with Thera-Band above knees #4 Walking backwards with emphasis on terminal knee extension when heel is down FWB. ASSESSMENT: Patient presents to the ORTHOPEDIC [facility] reporting that she has been unable to straighten her knee or bend it all the way since her ACL surgery 03/08/2020 and manipulation 06/04/2020. PAIN 2-3/10 anterior posterior knee ROM 10/115 before stretching that improved to 5/115 after stretching STRENGTH 4+/5 quads -5/5 hams+ glutes NEUROVASCULAR appears intact distally POSTURE tends to ambulate with a 10 degree flexion contracture due to hamstring guarding TRANSFERS normal GAIT mild limp due to lack of terminal knee extension ADL & FUNCTIONAL DEFICITS .lacks 10 degrees TKE during weightbearing activities without assistive device PLAN: Continue with upgraded PT home exercise program with option for follow-up if needed. She will continue to follow-up with her local therapist once a week Patient urged to call with any further questions or concerns at any time. ORTHOPEDIC [facility] [phone] OUTPATIENT REHAB DEPARTMENT [facility]) [phone] Patient is agreeable with this plan. SHORT TERM PT GOALS: 3-6 weeks Cross with initial home exercise program Improve flexibility and strength for safer more efficient ADL, transfers and ambulation. CLAIMS CUSTOMER SERVICE REPRESENTATIVE PT GOALS: 3-6 months Normal gait dynamics without assistive device Improve proprioception and power for return to prior level or modified recreational and sporting activities. MEDICARE CERTIFICATION PERIOD: NA Total treatment time 23 min Total coded time 15 min Elie Allen PT documented in this encounter Plan of Treatment Scheduled Referrals Name Type Priority Associated Diagnoses Order S chedule Referral to Outpatient Referral Routine Right Knee Pain, Orde red: Physical Therapy Unspecified 06/27/2020 Chronicity documented as of this encounter Visit Diagnoses Diagnosis Right knee pain, unspecified chronicity Knee stiffness, right S/P ACL reconstruction Other postprocedural status documented in this encounter Care Teams Spiritual Counselor Relationship Specialty Start Date End Date Breann Elias APRN PCP - General 11/22/14 [address] [place] [address] documented as of this encounter
--- OUTSIDE RECORDS SUMMARY | 2022-01-24 19:05 | XMS_ITS | Encounter Summary ---
:1970 Author Organization [facility] [address] Care Team Providers Name Role Phone Curt Breannsivakumar Perry APRN Primary Care Provider [phone] Encounter Details Date Type Department Care Team Description 08/02/2020 Orders Only Occupational Medicine [place] [address] [place] [address] [phone] Social History Tobacco Use Types Packs/Day Years [...] Name Priority Date/Time Associated Diagnosis Comme nts MUMPS ANTIBODY, IGG Routine 08/02/2020 11:17 AM R esults for this EDT procedure are i n the results section. documented in this encounter Results Mumps Antibody, IgG (08/02/2020 11:17 AM EDT) P athologist Signature Mumps IgG Pos Pos [facility] Specimen Anatomical Collection Method Collection Time Receive d Time (Source) Location / / Volume Laterality Blood specimen Venous Draw / 08/02/2020 11:17 08/03/19 21 1:33 (specimen) Unknown AM EDT PM EDT Resulting Agency Comment Spec In Lab Inez Justice APRN IMMUNOLOGY ORDERABLES Performing Organization Address City/State/ZIP [place] [address] documented in this encounter Visit Diagnoses Not on filedocumented in this encounter Care Teams Boiler Repair Supervisor Relationship Specialty Start Date End Date Breann Elias APRN PCP - General 11/22/14 [address] [place] [address] documented as of this encounter
--- OUTSIDE RECORDS SUMMARY | 2022-01-24 19:05 | XMS_ITS | Encounter Summary ---
:1970 Author Organization [facility] [place] [address] Care Team Providers Name Role Phone CurtBreann de los santos ALFONSO Primary Care Provider [phone] Encounter Details Date Type Department Care Team Description 04/06/2015 Hospital Encounter Mammography at [facility] [place] Mojgan Coe, Left breast mass [facility] [address] NUCLEAR MEDICINE [phone] [place], [place] [address] Social History Tobacco Use Types Packs/Day Years [...] Priority Date/Time Associated Diagnosis Comme nts MAMMO 2D DIGITAL Routine 04/06/2015 11:20 AM Left breast mass Results for this DIAG TOMAS WITH CAD EST procedure are in BILATERAL the results section. documented in this encounter Results Mammo Diag Tomas Bilateral (04/06/2015 11:20 AM EST) Anatomical Region Laterality Modality Breast Bilateral Mammography Specimen (Source) Anatomical Location Collection Method [...] breast documented in this encounter Care Teams Helium Arc Welder Relationship Specialty Start Date End Date Breann Elias, JAI ALAI PLAYER PCP - General 11/22/14 [address] [place] [address] documented as of this encounter
--- OUTSIDE RECORDS SUMMARY | 2022-01-24 19:06 | XMS_ITS | Encounter Summary ---
:1970 Author Organization [facility] Address [address] [place] [address] Care Team Providers Name Role Phone Breann Elias APRN Primary Care Provider [phone] Breann Elias CARRY OUT CLERK AND SHELF STOCKER Unavailable Encounter Details Date Type Department Care Team Description 08/10/2020 Lab Requisition [facility] Outr Resulting Lab, Pathology & Laboratory Provider [facility] [address] [place] [address] Social History Tobacco Use Types Packs/Day Years Used Date Never Assessed Sex Assigned at Date Recorded Not on file documented as of this encounter Plan of Treatment Not on filedocumented as of this encounter Procedures Procedure Name Priority Date/Time Associated Comments Diagnosis CHLAMYDIA/N. Routine 08/09/2020 16:45 Results for this GONORRHOEAE AMPLIFIED EDT proced ure are in RNA the results section. documented in this encounter Results CHLAMYDIA/N. GONORRHOEAE AMPLIFIED RNA (08/09/2020 16:45 EDT) Pathologist Sig nature Gonococcus Result Negative Negative [facility] Chlamydia Result Negative Negative [facility] Specimen Swab - Entire vagina (body structure) Performing Organization Address City/State/ZIP Code Phon e Number [facility] [address] [place] [address] SERVICES documented in this encounter Visit Diagnoses Not on filedocumented in this encounter Care Teams Research Animal Attendant Relationship Specialty Start Date End Date Breann Elias APRN PCP - General 07/11/13 [address] [place] [address] Breann Elias, CARRY OUT CLERK AND SHELF STOCKER 07/07/13 [address] [place] [address] documented as of this encounter
--- OUTSIDE RECORDS SUMMARY | 2022-01-24 19:06 | XMS_ITS | Encounter Summary ---
:1970 Author Organization [facility] Address [address] [place] [address] Care Team Providers Name Role Phone Breann Elias APRN Primary Care Provider [phone] Breann Elias APRN Unavailable Encounter Details Date Type Department Care Team Description 05/28/2020 Lab Requisition [facility] Outr Resulting Lab, Pathology & Laboratory Provider [facility] [address] [place], [place] [address] Social History Tobacco Use Types Packs/Day Years Used Date Never Assessed Sex Assigned at Date Recorded Not on file documented as of this encounter Plan of Treatment Not on filedocumented as of this encounter Procedures Procedure Name Priority Date/Time Associated Diagnosis Comme nts COVID-19 TEST [facility] Today 05/28/2020 10:05 LAB PCR EST COVID-19 TESTING Routine 05/28/2020 10:05 Results for this EST procedure are i n the results section. documented in this encounter Results COVID-19 TEST [facility] LAB PCR (05/28/2020 10:05 EST) Specimen Swab - Entire nasopharynx (body structur e) Performing Organization Address City/State/ZIP Code Phon e Number [facility] [address] [place] [address] SERVICES COVID-19 TESTING (05/28/2020 10:05 EST) COVID-19 rt-PCR Negative Negative [facility] Result Comment: CENTER LABORATORY This test has not been FDA c leared or approved. This test has been authorized by FDA under an EUA for use by authorized laboratories. This test has been authorized only for detection of nucleic acid fro SERVICES m 2019-nCoV, not for any oth er viruses or pathogens. This test is only authorized for the duration of the declaration that circumstances exist justifying the authorization of emergency use of in vitro d iagnostic tests for detectio n and/or diagnosis of 2019-nCoV under section 564(b)(1) of Act, 21 U.S.C ?? 360bbb-3(b) (1), unless the authorization is terminated or revoked sooner. Negative results do not prec lude 2019-nCoV infection and should not be used as the sole basis for treatment or other patient management decisions. Negative results must be combined with clinical observa tions, patient history, and epidemiological informatio n. Testing was performed using the luis SARS-CoV-2 assay ([employer] on the Luis 6800 System Performing Lab Luis [address] [facility] Lab [facility] Specimen Swab Performing Organization Address City/State/[facility] Code Phon e Number [facility] [address] [place] [address] SERVICES documented in this encounter Visit Diagnoses Not on filedocumented in this encounter Care Teams Field Crop Technical Officer Relationship Specialty Start Date End Date Breann Elias APRN PCP - General 07/11/13 [address] [place] [phone] Breann Elias APRN 07/07/13 [address] [place] [phone] documented as of this encounter
--- OUTSIDE RECORDS SUMMARY | 2022-01-24 19:06 | XMS_ITS | Encounter Summary ---
:1970 Author Organization [facility] Address [address] [place] [address] Care Team Providers Name Role Phone Breann Elias APRN Primary Care Provider [phone] Breann Elias APRN Unavailable Encounter Details Date Type Department Care Team Description 11/18/2019 Lab Requisition [facility] Outr Resulting Lab, Pathology & Laboratory Provider [facility] [address] [place], [place] [id number] Social History Tobacco Use Types Packs/Day Years Used Date Never Assessed Sex Assigned at Date Recorded Not on file documented as of this encounter Plan of Treatment Not on filedocumented as of this encounter Procedures Procedure Name Priority Date/Time Associated Diagnosis Comme nts SYPHILIS SEROLOGY Routine 11/17/2019 16:41 Result s for this EDT procedure are i n the results section. documented in this encounter Results SYPHILIS SEROLOGY (11/17/2019 16:41 EDT) Pathologist Sig nature Syphilis Serology Negative Negative [facility] Specimen Blood - Venous blood (substance) Performing Organization Address City/State/ZIP Code Phon e Number [facility] [address] [place] [address] SERVICES documented in this encounter Visit Diagnoses Not on filedocumented in this encounter Care Teams Front Desk Manager Relationship Specialty Start Date End Date Breann Elias APRN PCP - General 07/11/13 [address] [place] [phone] Breann Elias, HEAD SILVERMAN 07/07/13 [address],[facility] [address] [place] [address] documented as of this encounter
--- OUTSIDE RECORDS SUMMARY | 2022-01-24 19:06 | XMS_ITS | Encounter Summary ---
:1970 Author Organization [facility] Address [address] [place] [address] Care Team Providers Name Role Phone Breann Elias APRN Primary Care Provider [phone] Breann Elias APRN Unavailable Encounter Details Date Type Department Care Team Description 12/26/2014 Hospital Encounter [facility]- Jazmine Unknown, Provider, [facility] 0 [facility] [phone] [place] [address] (Work) [phone] Social History Tobacco Use Types Packs/Day Years Used Date Never Assessed Sex Assigned at Date Recorded Not on file documented as of this encounter Discharge Disposition Disposition Code Departure Means Destination Home or Self Mcfp documented in this encounter Plan of Treatment Not on filedocumented as of this encounter Visit Diagnoses Not on filedocumented in this encounter Care Teams Day Care Director Relationship Specialty Start Date End Date Breann Elias APRN PCP - General 07/11/13 [address] [place] [phone] Breann Elias APRN 07/07/13 [address] [place] [address] documented as of this encounter
--- OUTSIDE RECORDS SUMMARY | 2022-01-24 19:06 | XMS_ITS | Encounter Summary ---
:1970 Author Organization [facility] Address [address] [place] [address] Care Team Providers Name Role Phone Breann Elias APRN Primary Care Provider [phone] Breann Elias APRN Unavailable Encounter Details Date Type Department Care Team Description 05/23/2020 Lab Requisition [facility] Outr Resulting Lab, Pathology & Laboratory Provider [facility] [address] [place], [place] [address] Social History Tobacco Use Types Packs/Day Years Used Date Never Assessed Sex Assigned at Date Recorded Not on file documented as of this encounter Plan of Treatment Not on filedocumented as of this encounter Procedures Procedure Name Priority Date/Time Associated Diagnosis Comme nts COVID-19 TEST [facility] Today 05/23/2020 8:57 EST LAB PCR COVID-19 TESTING Routine 05/23/2020 8:57 EST Resu lts for this procedure are i n the results section. documented in this encounter Results COVID-19 TEST [facility] LAB PCR (05/23/2020 8:57 EST) Specimen Swab - Entire nasopharynx (body structur e) Performing Organization Address City/State/ZIP Code Phon e Number [facility] [address] [place] [address] SERVICES COVID-19 TESTING (05/23/2020 8:57 EST) COVID-19 rt-PCR Negative Negative [facility] MEDICAL Result Comment: CENTER LABORATORY Negative results do not prec lude 2019-nCoV infection and should not be used as the sole basis for treatment or other patient management decisions. Negative results must be combined with clinical observa SERVICES tions, patient history, and epidemiological informatio n. This test was developed and its performance characteristics determined by [facility]. It has not been cleared or approved by the US Food and Drug Administration. FDA does not require this test to go through premarket FDA review. This t est is used for clinical purposes. It should not be regarded as investigational or for research. This laboratory is certified under the Clinical Laboratory Improvement Amendm ents (CLIA) as qualified to perform high complexity clinical laboratory testing. This test is based on the CD C COVID-19 Emergency Use Authorization (EUA) assay, with minor modification as defined by the FDA Performed on the Timehop Flex . Performing Lab [facility] Lab [facility] SERVICES Specimen Swab Performing Organization Address City/State/[facility] Code Phon e Number [facility] [address] [place] [address] SERVICES documented in this encounter Visit Diagnoses Not on filedocumented in this encounter Care Teams Web Database Developer Relationship Specialty Start Date End Date Breann Elias APRN PCP - General 07/11/13 [address] [place] [phone] Breann Elias APRN 07/07/13 [address] [place] [phone] documented as of this encounter
--- OUTSIDE RECORDS SUMMARY | 2022-01-24 19:06 | XMS_ITS | Encounter Summary ---
:1970 Author Organization [facility] Address [address] [place] [address] Care Team Providers Name Role Phone Arie Gold BED AND BREAKFAST OPERATOR Primary Care Provider [phone] Arie Gold BED AND BREAKFAST OPERATOR Unavailable Encounter Details Date Type Department Care Team Description 11/14/2014 Results Only [facility] CurtArie, BED AND BREAKFAST OPERATOR [address] [place], [place] [phone] (Wo rk) Social History Tobacco Use Types Packs/Day Years Used Date Never Assessed Sex Assigned at Date Recorded Not on file documented as of this encounter Plan of Treatment Not on filedocumented as of this encounter Procedures Procedure Name Priority Date/Time Associated Diagnosis Comme nts PAP TEST- RESULT Routine 11/14/2014 0:00 EDT Resu lts for this ONLY procedure are i n the results section. documented in this encounter Results PAP TEST- RESULT ONLY (11/14/2014 0:00 EDT) Pathology Report: CYTOPATHOLOGY REPORT [facility] Reports generated via electronic interface contain julee ginal data; SERVICES however they are lacking the format of the original re port. Caution should be taken when reading/interpreting unfo rmatted reports. Name: ? JOHANNE DELACRUZ ? Accession #: ? [id number] ? : ? 1970 (Age: 43 ) ??F ?Collect Date: ? 2014 ? Location: ? [facility] ? Receive Date: ? 5 ? Provider: ARIE GOLD BED AND BREAKFAST OPERATOR Copy to: ? Final Report SPECIMEN ADEQUACY ? Satisfactory for Evaluation - transformation zone component present GENERAL CATEGORIZATION ? Negative for Intraepithelial Lesion or Malignan cy INTERPRETATION ? Reactive cellular sarah nges associated with inflammation present (includes repair). Last Menstrual Period: 06/17/14 Hormonal/Contraceptive status: Yes: Microgestin Intrauterine device: Mirena placed last month Previous Gynecologic Pathology: Adenocarcinoma: Hx of abnormal pap 2006 Specimen/Source: ??Pap Test, Cervix/Endocervix, ThinPr ep Imaging System with manual evaluation Document reviewed and electronically signed by: ? EVERARDO DEVLIN MD ? Report ??Date: 11/24/2014 17:13 HPV with Pap Test ? Date Ordered: ? 11/24/2014 ? Status: ?? Signed Out ?Date Complete: ? 11/28/2014 ? By: ??Sy stem Interface ? Date Reported: ? 11/28/2014 ? Interpretation RESULT: Negative for HPV. No E6 or E7 mRNA is detected from HPV types 16,18,31,3 3,35, 39,45,51,52,56,58,59,66, and 68 by slope runner media jack amplification. Comments Document reviewed and electronically signed by: ? System Interface ? Report date: 11/28/2014 By the signature above, the attending physician certif ies that he/she has personally conducted a gross and/or microscopic examin ation of the described specimens and rendered or confirmed the above diagnosi s. End of Report Specimen Performing Organization Address City/State/ZIP Code Phon e Number [facility] [address] [place] [address] SERVICES documented in this encounter Visit Diagnoses Not on filedocumented in this encounter Care Teams Can Intake Worker Relationship Specialty Start Date End Date Arie Gold, ALFONSO PCP - General 07/11/13 [address] [place] [phone] Arie Gold APRN 07/07/13 [address] [place] [phone] documented as of this encounter
--- OUTSIDE RECORDS SUMMARY | 2022-01-24 19:06 | XMS_ITS | Clinical Summary ---
:1970 Author Organization [facility] Address [address] [place] [address] Care Team Providers Name Role Phone Breann Elias APRN Primary Care Provider [phone] Breann Elias APRN Unavailable Social History Tobacco Use Types Packs/Day Years Used Date Never Assessed Sex Assigned at Date Recorded Not on file Plan of Treatment Not on file Insurance Payer Benefit Plan / Subscriber ID Effective Dates Phone Addre ss Type Group [facility] [id number] 2020-Present [address] [place] [address] [address] (Home) [place] [phone] [place] [address] (Work) SarahJohanne Personal/Family Self 1970 [address] (Home) [place] [phone] [place] [address] (Work) Johanne Smith Personal/Family Self 1970 [address] (Home) [facility] [phone] [place] [address] (Work) Johanne Smith Personal/Family Self 1970 [address] (Home) [facility] [place] [phone] [place] [address] (Work) SarahJohanne Personal/Family Self 1970 [address] (Home) [place] [address] (Work) Care Teams Registered Nurse Float Pool Relationship Specialty Start Date End Date Breann Elias, DEATH CLEARANCE COORDINATOR PCP - General 07/11/13 [address] [place] [phone] Breann Elias, ALFONSO 07/07/13 [address] [place] [phone]
--- OUTSIDE RECORDS SUMMARY | 2022-01-24 19:06 | XMS_ITS | Encounter Summary ---
:1970 Author Organization [facility] Address [address] [place] [address] Care Team Providers Name Role Phone Breann Elias APRN Primary Care Provider [phone] Breann Elias LAY OUT CARPENTER Unavailable Encounter Details Date Type Department Care Team Description 11/18/2019 Lab Requisition [facility] Outr Resulting Lab, Pathology & Laboratory Provider [facility] [address] [place], [place] [address] Social History Tobacco Use Types Packs/Day Years Used Date Never Assessed Sex Assigned at Date Recorded Not on file documented as of this encounter Plan of Treatment Not on filedocumented as of this encounter Procedures Procedure Name Priority Date/Time Associated Diagnosis Comme nts HEPATITIS C AB W Routine 11/17/2019 16:41 Results for this REFLEX TO HCV RNA EDT procedure are in BY PCR the results section. documented in this encounter Results HEPATITIS C AB W REFLEX TO HCV RNA BY PCR (11/17/2019 16:41 EDT) Pathologist Sig nature Hep C Antibody Negative Negative [facility] SERVICES Specimen Blood - Venous blood (substance) Performing Organization Address City/State/ZIP Code Phon e Number [facility] [address] [place] [address] SERVICES documented in this encounter Visit Diagnoses Not on filedocumented in this encounter Care Teams Senior Security Architect Relationship Specialty Start Date End Date Breann Elias APRN PCP - General 07/11/13 [address] [place] [phone] Breann Elias, LAY OUT CARPENTER 07/07/13 [facility] [address] [place] [phone] documented as of this encounter
--- OUTSIDE RECORDS SUMMARY | 2022-01-24 19:06 | XMS_ITS | Encounter Summary ---
:1970 Author Organization [facility] Address [address] [place] [address] Care Team Providers Name Role Phone Breann Elias APRN Primary Care Provider [phone] Curt Breann Orlando HAMILTON Unavailable Encounter Details Date Type Department Care Team Description 03/05/2020 Lab Requisition [facility] Outr Resulting Lab, Pathology & Laboratory Provider [facility] [address], [place] [id number] Social History Tobacco Use Types Packs/Day Years Used Date Never Assessed Sex Assigned at Date Recorded Not on file documented as of this encounter Plan of Treatment Not on filedocumented as of this encounter Procedures Procedure Name Priority Date/Time Associated Comments Diagnosis DO NOT ORDER Today 03/05/2020 11:02 Results for this STANDALONE - BROAD EDT procedure are in COVID TEST the results section. COVID-19 TESTING Routine 03/05/2020 11:02 Results for this EDT procedure are i n the results section. documented in this encounter Results DO NOT ORDER STANDALONE - BROAD COVID TEST (03/05/2020 11:02 EDT) COVID-19 rt-PCR NEGATIVE Negative [facility] Result Comment: LABORATORY 2019-novel Coronavirus (2019 -nCoV) not detected by the qRT-PCR assay. Consider testing for other respiratory viruses or re-collecting for 2019-nCoV testing. Note: Optimum timing for peak viral levels du ring infections caused by 20 -nCoV have not been determined. Collection of multiple specimens from the same patient may be necessary to detect the virus. Limitations Positive results are indicat kathy of active infection with SARS-CoV-2 but do not rule out bacterial infection or co-infection with other viruses. The agent detected may not be the definite cause of diseas e. In addition, detection of viral RNA may not indicate the presence of infectious virus or that SARS-CoV-2 is the causative agent for clinical symptoms. Negative results do not prec lude SARS-CoV-2 infection and should not be used as the sole basis for patient management decisions. Negative results must be combined with clinical observations, patient his tory, and epidemiological in formation. False negative results may also occur if amplification inhibitors are present in the specimen or if inadequate numbers of organisms are present in the specimen. Op timum specimen types and tano ing for peak viral levels during infections caused by SARS-CoV-2 have not been fully determined. Collection of multiple specimens (types and time points) from the same patient may be necessary to detect the virus. The test was validated for u with upper respiratory specimens obtained via nasopharyngeal or oropharyngeal swabs in VTM, UTM, M4, M5, M6, saline, and MTM media. The performance of this test has not be en established for other spe cimens. Specimens collected using other FDA recommended Specimen Collection Materials listed in the FDA COVID-19 [employer] communication (August 04, 2019) are pr ocessed with the caveat that they were not all validated for use with this test and the result must be interpreted in this context. Furthermore, a false negative results may occur if a specimen is improperly collected, transported or handled. If the virus mutates in the RT-PCR target region, SARS-CoV-2 may not be detected or may be detected less predictably. Inhibitors or other types of interference may produce a false negative result. An interference study evaluating the effect of common cold medications was not performed. This test is not FDA-cleared but its performance characteristics were established by our CLIA-certified, CAP-accredited, high complexity laboratory in accordance with CLIA regulations, College of [employer] an Pathologists (CAP) guidel marlon (Jul 28, 2019), and FDA guidance (Jul 09, 2019). This test is only for use un manjinder the Food and Drug Administration's Emergency Use Authorization. Specimen Swab - Entire nasopharynx (body structur e) Performing Organization Address City/State/ZIP Code Phon e Number [facility] [place] [place] COVID-19 TESTING (03/05/2020 11:02 EDT) COVID-19 rt-PCR NEGATIVE Negative [facility] Result Comment: LABORATORY 2019-novel Coronavirus (2019 -nCoV) not detected by the qRT-PCR assay. Consider testing for other respiratory viruses or re-collecting for 2019-nCoV testing. Note: Optimum timing for peak viral levels du ring infections caused by 20 -nCoV have not been determined. Collection of multiple specimens from the same patient may be necessary to detect the virus. Limitations Positive results are indicat kathy of active infection with SARS-CoV-2 but do not rule out bacterial infection or co-infection with other viruses. The agent detected may not be the definite cause of diseas e. In addition, detection of viral RNA may not indicate the presence of infectious virus or that SARS-CoV-2 is the causative agent for clinical symptoms. Negative results do not prec lude SARS-CoV-2 infection and should not be used as the sole basis for patient management decisions. Negative results must be combined with clinical observations, patient his tory, and epidemiological in formation. False negative results may also occur if amplification inhibitors are present in the specimen or if inadequate numbers of organisms are present in the specimen. Op timum specimen types and tano ing for peak viral levels during infections caused by SARS-CoV-2 have not been fully determined. Collection of multiple specimens (types and time points) from the same patient may be necessary to detect the virus. The test was validated for [facility] with upper respiratory specimens obtained via nasopharyngeal or oropharyngeal swabs in VTM, UTM, M4, M5, M6, saline, and MTM media. The performance of this test has not be en established for other [facility]. Specimens collected using other FDA recommended Specimen Collection Materials listed in the FDA COVID-19 [employer] communication (August 04, 2019) are pr ocessed with the caveat that they were not all validated for use with this test and the result must be interpreted in this context. Furthermore, a false negative results may occur if a specimen is improperly collected, transported or handled. If the virus mutates in the RT-PCR target region, SARS-CoV-2 may not be detected or may be detected less predictably. Inhibitors or other types of interference may produce a false negative result. An interference study evaluating the effect of common cold medications was not performed. This test is not FDA-cleared but its performance characteristics were established by our CLIA-certified, CAP-accredited, high complexity laboratory in accordance with CLIA regulations, College of [employer] an Pathologists (CAP) guidel marlon (Jul 28, 2019), and FDA guidance (Jul 09, 2019). This test is only for use un manjinder the Food and Drug Administration's Emergency Use Authorization. Performing Lab [facility] LABORATORY SERVICES Specimen Swab Performing Organization Address City/State/[facility] Code Phon e Number [facility] [address] [place] [address] SERVICES [facility] [place], [place] documented in this encounter Visit Diagnoses Not on filedocumented in this encounter Care Teams Cancer Program Director Relationship Specialty Start Date End Date Breann Elias APRN PCP - General 07/11/13 [address] [place] [phone] Breann Elias APRN 07/07/13 [address] [place] [phone] documented as of this encounter
--- OUTSIDE RECORDS SUMMARY | 2022-01-24 19:06 | XMS_ITS | Encounter Summary ---
:1970 Author Organization [facility] Address [address] [place] [address] Care Team Providers Name Role Phone Bri Eliashryn Orlando HAMILTON Primary Care Provider [phone] Arie Elias ALFONSO Unavailable Encounter Details Date Type Department Care Team Description 07/25/2013 Results Only [facility] Matthew Allan MD Laboratory Services - [address] [place] [address] [place] [address] [phone] Social History Tobacco Use Types Packs/Day Years Used Date Never Assessed Sex Assigned at Date Recorded Not on file documented as of this encounter Plan of Treatment Not on filedocumented as of this encounter Procedures Procedure Name Priority Date/Time Associated Diagnosis Comme [facility] SURGICAL PATHOLOGY Routine 07/25/2013 9:24 EDT Re sults for this procedure are i n the results section. documented in this encounter Results SURGICAL PATHOLOGY (07/25/2013 9:24 EDT) Pathology Report: SURGICAL PATHOLOGY REPORT SR[facility] PERDOMO Reports generated via electronic interface contain julee ginal data; LAB however they are lacking the format of the original re port. Caution should be taken when reading/interpreting unfo rmatted reports. Name: ? JOHANNE DELACRUZ ? Accession #: ? [id number] ? : ? 1970 (Age: 42) ??F ? Collect Date: ? 07/25/2013 ? Location: ? [facility] ? Receive Date: ? 014 ? Provider: FRANCES ALLAN MD Copy to: ARIE Perry ASIF GEOTHERMAL INSTALLER ? Final Pathologic Diagnosis: BREAST, LEFT, 2:00, 5 CM FROM NIPPLE, EXCISIONAL BIOPS Y: - ??Nodular hyperplastic breast tissue. Comment: Histologic sections of the b reast excision demonstrate a vaguely defined nodular area of breast tissue characterized by an increased de nsity of breast tissue (nodular adenosis). A few se ctions demonstrate focal fibroadenoma-like features. Dr. Tripathi 07/28/2013 01:21 PM Document reviewed and electronically signed by: ELVIRA RODRIGUES MD Report ??Date: 07/28/2013 16:58 By the signature above, the attending physician certif ies that he/she has personally conducted a gross and/or microscopic examin ation of the described specimens and rendered or confirmed the above diagnosi s. Specimen(s) Received: L breast, 2 o'clock, 5 cm from nipple, long suture lat eral, short suture superior, double suture anterior Clinical History: Category III mammo; core bx non-concordant Gross Description: ? Received in formalin labelled with proper patient identification (initials P, G) and breast mass, left is an oriented portion of fibrofatty tissue (18 g, 3.4 cm superior to inferior x 5.0 cm medial to lateral x 2.5 cm anterior to posterior), oriented per the surgical requisition. The re is a needle localization wire entering t he anterior aspect of the specimen. ??The specimen is sectioned from lateral (level 1) to medial (level 9). ? A discrete mass is no t identified. ??A hemorrhagic, probable previous biopsy site is identified in levels 2-5. ? The posterior aspect of the entire specim en is composed of white dense fibrous tissue. ??The remain manjinder of the specimen is composed of yellow lobulated adipose. ? Entirely submitted as follows: Ink salinas Yellow-anterior Black-posterior Blue-superior Green-inferior ? Red-medial Waldo-lateral ? BLOCK SALINAS 1- ??level 1 (lateral), perpendicular sections 2- ??level 2 3- ??level 3 4- ??level 3, thinned, incomplete margins 5- ??level 4 6- ??level 5 7- ??level 6 8- ??level 7 9- ??level 8 10- ??level 9 (medial), perpendicular sections Time removed from patient: 1422 hrs on 07/25/2013 Time in formalin: Time not provided Time out of formalin: 1900 hrs on 07/26/2013 Dr. Roberts 07/26/2013 01:44 PM End of Report Specimen Performing Organization Address City/State/ZIP Code Phon e Number [facility] [address] [place] [address] SERVICES [facility] [address] [place] [address] documented in this encounter Visit Diagnoses Not on filedocumented in this encounter Care Teams Administrator Health Care Facility Relationship Specialty Start Date End Date Arie Elias APRN PCP - General 07/11/13 [address] [place] [phone] Arie Elias APRN 07/07/13 [address] [place] [phone] documented as of this encounter
--- OUTSIDE RECORDS SUMMARY | 2022-01-24 19:06 | XMS_ITS | Encounter Summary ---
:1970 Author Organization [facility] Address [address] [place] [address] Care Team Providers Name Role Phone Breann Elias APRN Primary Care Provider [phone] Breann Elias APRN Unavailable Encounter Details Date Type Department Care Team Description 10/12/2020 Lab Requisition [facility] Madiha Brunson for Pathology & M, DO screening for Laboratory Medicine - [address] hi lignant neoplasm of [facility] [address] colon [address] [place] [phone] Social History Tobacco Use Types Packs/Day Years Used Date Never Assessed Sex Assigned at Date Recorded Not on file documented as of this encounter Plan of Treatment Not on filedocumented as of this encounter Procedures Procedure Name Priority Date/Time Associated Diagnosis Comme nts SURGICAL PATHOLOGY Today 10/12/2020 15:20 Encounter for Resu lts for this EDT screening for procedure are in malignant neoplasm the resul ts of colon section. documented in this encounter Results SURGICAL PATHOLOGY (10/12/2020 15:20 EDT) Final Diagnosis A. COLON, AT 20 CM, BIOPSY: [facility] - Benign inflammatory polyp. CENTER - Deeper sections have been reviewed. LAB ORATORY SERVICES Attestation By the signature [facility] Electronica lly below, the attending CENTER signed by Javier physician certifies LABORATORY MD Lorene on that they have 1) SERVICES 10/17/2020 a t 1729 personally conducted a gross and/or microscopic examination of the described specimen(s), and/or personally interpreted the results of laboratory testing of the described specimen(s), and 2) personally rendered or confirmed the above diagnosis. Clinical History Colonoscopy [facility] screening; [facility] LABORATORY SERVICES Gross Description A. [facility] Received in formalin zuleyka d with proper patient identification (initials P, G) and Bx @ 20 is a pale darling-white focally brown speckled tissue (0.4 x 0.2 x 0.2 cm). Submitted intact in A1. [facility] Rafael Hudson 10/13/2020 10:54 SERVICES Performing Lab [facility] Scanned Images [facility] Specimen Tissue - Entire colon (body structure) Performing Organization Address City/State/ZIP Code Phon e Number [facility] [address] [place] [address] SERVICES documented in this encounter Visit Diagnoses Diagnosis Encounter for screening for malignant ne oplasm of colon Special screening for malignant neoplasm s, colon documented in this encounter Care Teams Prosthetic Aides Teacher Relationship Specialty Start Date End Date Breann Elias APRN PCP - General 07/11/13 [address] [place] [phone] Breann Elias APRN 07/07/13 [address] [place] [phone] documented as of this encounter
--- OUTSIDE RECORDS SUMMARY | 2022-01-24 19:06 | XMS_ITS | Encounter Summary ---
:1970 Author Organization [facility] Address [address] [place] [address] Care Team Providers Name Role Phone Breann Elias APRN Primary Care Provider [phone] Breann Elias APRN Unavailable Encounter Details Date Type Department Care Team Description 05/14/2021 Lab Requisition [facility] Outr Resulting Lab, Pathology & Laboratory Provider [facility] [address] [id number] Social History Tobacco Use Types Packs/Day Years Used Date Never Assessed Sex Assigned at Date Recorded Not on file documented as of this encounter Plan of Treatment Not on filedocumented as of this encounter Procedures Procedure Name Priority Date/Time Associated Diagnosis Comme nts COVID-19 TEST [facility] Today 05/14/2021 11:00 LAB PCR EST COVID-19 TESTING Routine 05/14/2021 11:00 Results for this EST procedure are i n the results section. documented in this encounter Results COVID-19 TEST [facility] PCR (05/14/2021 11:00 EST) Specimen Swab Performing Organization Address City/State/ZIP Code Phon e Number [facility] [address] [place] [address] SERVICES COVID-19 TESTING (05/14/2021 11:00 EST) COVID-19 rt-PCR Negative Negative [facility] Result Comment: CENTER LABORATORY This test [...] tions, patient history, and epidemiological informatio n. Performed on the [facility] [employer] instrument Performing Lab [place] [facility] Lab [facility] SERVICES Specimen Swab Performing Organization Address City/State/ZIP Code Phon e Number [facility] [address] [place] [address] SERVICES documented in this encounter Visit Diagnoses Not on filedocumented in this encounter Care Teams Fruit Or Nut Farm Worker Relationship Specialty Start Date End Date Breann Elias APRN PCP - General 07/11/13 [address] [place] [phone] Breann Elias APRN 07/07/13 [address] [place] [phone] documented as of this encounter
--- OUTSIDE RECORDS SUMMARY | 2022-01-24 19:06 | XMS_ITS | Encounter Summary ---
:1970 Author Organization [facility] Address [address] [place] [address] Care Team Providers Name Role Phone Unavailable Primary Care Provider Unavailable Encounter Details Date Type Department Care Team Description 06/28/2013 Results Only [facility]- Arie Castillo, PET CARETAKER [address] [place], [place] [phone] (Wo rk) Social History Tobacco Use Types Packs/Day Years Used Date Never Assessed Sex Assigned at Date Recorded Not on file documented as of this encounter Plan of Treatment Not on filedocumented as of this encounter Procedures Procedure Name Priority Date/Time Associated Diagnosis Comme nts PAP TEST- RESULT Routine 06/28/2013 0:00 EST Resu lts for this ONLY procedure are i n the results section. documented in this encounter Results PAP TEST- RESULT ONLY (06/28/2013 0:00 EST) Pathology Report: CYTOPATHOLOGY REPORT [facility] Reports generated via electronic interface contain julee ginal data; however they are lacking the format of the original re port. Caution should be taken when reading/interpreting unfo rmatted reports. Name: ? JOHANNE DELACRUZ ? Accession #: ? [id number] : ? 1970 (Age: 42) ??F ?Collect Date: ? 06/11 Location: ? [facility] ? Receive Date : ? 06/30/2013 Provider: ?ARIE GOLD PET CARETAKER Copy to: ? Specimen/Source: ?Pap Test, En docervix, ThinPrep Imaging System with manual evaluation Last Menstrual Period: ? 06/06/2013 ? SPECIMEN ADEQUACY ? Satisfactory for Evaluation - transformation zone component present GENERAL CATEGORIZATION ? Negative for Intraepithelial Lesion or Malignan cy INTERPRETATION ? Fungal organisms pres ent morphologically consistent with Judith species. ? Document reviewed and electronically signed by: ? BARBARA Jack(ASCP) ? Report Date: ??07/05/2013 11:36 End of Report Specimen Performing Organization Address City/State/ZIP Code Phon e Number [facility] [address] [phone] SERVICES [facility] [address] [place] [address] documented in this encounter Visit Diagnoses Not on filedocumented in this encounter
--- OUTSIDE RECORDS SUMMARY | 2022-01-24 19:06 | XMS_ITS | Encounter Summary ---
:1970 Author Organization [facility] Address [address] [place] [address] Care Team Providers Name Role Phone Breann Elias APRN Primary Care Provider Breann Elias APRN Unavailable Encounter Details Date Type Department Care Team Description 08/22/2020 Lab Requisition [facility] Madiha Brunson lipomatous Pathology & M, DO neoplasm of skin and Laboratory Medicine [address] subc utaneous tissue of [facility] [address] unspecified limb [address] [place] [phone] Social History Tobacco Use Types Packs/Day Years Used Date Never Assessed Sex Assigned at Date Recorded Not on file documented as of this encounter Plan of Treatment Not on filedocumented as of this encounter Procedures Procedure Name Priority Date/Time Associated Diagnosis Comme nts SURGICAL PATHOLOGY Today 08/21/2020 7:55 Benign lipomatous R esults for this EDT neoplasm of skin and procedu re are in subcutaneous tissue the resu lts of unspecified limb section. documented in this encounter Results SURGICAL PATHOLOGY (08/21/2020 7:55 EDT) Final Diagnosis A. SOFT TISSUE, RIGHT AXILLA, EXCISION: [facility] - Hamartoma, mammary type (benign). [facility]AT[facility] Diagnosis Comment Supervisor Pig Machine slides of thi s case were reviewed at the intradepartmental consultation conference. [facility] Attestation By the signature below, [facility] Elec tronically the attending physician CENTER sign ed by Trang, certifies that they LABORATORY Lilly Govea , DO on have 1) personally SERVICES 08/27/2020 at 1454 conducted a gross and/or microscopic examination of the described specimen(s), and/or personally interpreted the results of laboratory testing of the described specimen(s), and 2) personally rendered or confirmed the above diagnosis. Clinical History Right axillary lipoma [facility] SERVICES Gross Description A. [facility] Received in formalin zuleyka d with proper patient identification (initials P, G) and right axilla mass is a 2.5 g, 3.1 x 3.0 x 1.1 cm aggregate of lobulated, pale yellow adipose tissue. Sectioning rev CENTER eals lobulated, yellow cut s urfaces. There is a darling-white, fibrous area along 1 side of the specimen. No additional lesions are identified. Supervisor Pig Machine sections are submitted in A1-A2. LABORATORY SERVICES DAVID JEFFERSON(ASCP) 08/22/2020 11:59 Performing Lab [facility] SERVICES Scanned Images [facility] SERVICES Specimen Tissue - Soft tissue (navigational jeff pt) Performing Organization Address City/State/ZIP Code Phon e Number [facility] [address] [place] [address] SERVICES documented in this encounter Visit Diagnoses Diagnosis Benign lipomatous neoplasm of skin and s ubcutaneous tissue of unspecified limb documented in this encounter Care Teams Nursing Teacher Relationship Specialty Start Date End Date Breann Elias APRN PCP - General 07/11/13 [address] [place] [phone] Breann Elias APRN 07/07/13 [address] [place] [phone] documented as of this encounter
--- OUTSIDE RECORDS SUMMARY | 2022-01-24 19:06 | XMS_ITS | Encounter Summary ---
:1970 Author Organization [facility] Address [address] [place] [address] Care Team Providers Name Role Phone Breann Elias APRN Primary Care Provider [phone] Breann Elias ALFONSO Unavailable Encounter Details Date Type Department Care Team Description 12/26/2014 Results Only [facility]- PRISM Mendoza Ambriz MD [phone] [address] [facility] [address] [place] [phone] (Wo rk) Social History Tobacco Use Types Packs/Day Years Used Date Never Assessed Sex Assigned at Date Recorded Not on file documented as of this encounter Plan of Treatment Not on filedocumented as of this encounter Procedures Procedure Name Priority Date/Time Associated Diagnosis Comme nts SURGICAL PATHOLOGY Routine 12/26/2014 17:36 Resul ts for this EDT procedure are i n the results section. documented in this encounter Results SURGICAL PATHOLOGY (12/26/2014 17:36 EDT) Pathology Report: SURGICAL PATHOLOGY REPORT [facility] Reports generated via electronic interface conta in original data; CENTER LABORATORY however they are lacking the format of the original re port. SERVICES Caution should be taken when reading/interpreting unfo rmatted reports. Name: ? JOHANNE DELACRUZ ? Accession #: ? [id number] ? : ? 1970 (Age: 44 ) ??F ? Collect Date: ? 12/26/2014 ? Location: ? [facility] ? Receive Date: ? 5 ? Provider: RAJI AMBRIZ MD Copy to: ? Final Pathologic Diagnosis: A. small bowel, second portion of duodenum, biopsy: - ??Duodenal mucosa with foci of intraep ithelial lymphocytosis without villous blunting. See comment. B. stomach, antrum and body, biopsy: - ??Antral and transitional mucosa with mild reactive gastropathy. - ??No evidence of Helicobacter pylori on H&E. C. sMALL INTESTINE, terminal ileum, biopsy: - ??Superficial enteric mucosa with no significant abn ormality. D. colon, Ascending, POLYPS, biopsy: - ??Fragments of tubovillous adenomas. ?? E. colon, descending, biopsy: - ??Colonic mucosa with no significant abnormality. F. colon, sigmoid, biopsy: - ??Colonic mucosa with no significant abnormality. Comment: ? There are few foci of intraepithelial lymphocyt osis without villous blunting. Features are mild and not entirely specific. Similar histologic features can be sometimes in context of medication/ drug/herbal effect or Gluten sensitive enteropathy amongst others. Document reviewed and electronically signed by: CRYSTAL HAYDEN MD Report ??Date: 12/29/2014 10:54 By the signature above, the attending physician certif ies that he/she has personally conducted a gross and/or microscopic examin ation of the described specimens and rendered or confirmed the above diagnosi s. Specimen(s) Received: A. ?2nd portion duodenum B. ? Antrum & body C. ? Terminal ileum D. ? Polyp x2, ascending E. ? Descending F. ? Sigmoid Clinical History: Altered bowels; clinical diagnosis codes: 787.99, V16. 0 Gross Description: A. ?Received in formalin labelled with proper p atient identification (initials P, G) and 2nd por tion duodenum are two pink-darling tissues (0.2 x 0.2 x 0.1 cm and 0.2 x 0.2 x 0.2 cm). Entirely submitted in A1. B. ?Received in formalin labelled with proper p atient identification (initials P, G) and antrum and body are three pink-darling tissues (0.2 x 0.2 x 0.2 cm to 0.3 x 0.2 x 0.2 cm). Entirely submitted in B 1. C. ?Received in formalin labelled with proper p atient identification (initials P, G) and termina l ileum is a single pink-darling tissue fragment (0.5 x 0.2 x 0.2 cm). Submitted intact in C1. D. ?Received in formalin labelled with proper p atient identification (initials P, G) and polyp a scending x2 are four pink-darling tissues (0.2 x 0.2 x 0.2 cm to 0.5 x 0.2 x 0.2 cm). Entirely submitted in D 1 and D2. E. ?Received in formalin labelled with proper p atient identification (initials P, G) and descending are two pink-ta n tissues (0.3 x 0.2 x 0.2 cm and 0.4 x 0.2 x 0.2 cm). Entirely submitted in E1. F. ?Received in formalin labelled with proper p atient identification (initials P, G) and sigmoid are two pi nk-darling tissues (0.2 x 0.2 x 0.2 cm and 0.3 x 0.2 x 0.2 cm). Entirely submitted in F1. Ann Napoles 12/28/2014 8:30 AM End of Report Specimen Performing Organization Address City/State/ZIP Code Phon e Number [facility] [address] [place] [address] SERVICES documented in this encounter Visit Diagnoses Not on filedocumented in this encounter Care Teams Wafer Fab Technician Relationship Specialty Start Date End Date Breann Elias APRN PCP - General 07/11/[address] [place] [address],[facility] [address] [place] [phone] Breann Elias, ALFONSO 07/07/13 [address] [facility] [address] [phone] documented as of this encounter
--- OUTSIDE RECORDS SUMMARY | 2022-01-24 19:06 | XMS_ITS | Encounter Summary ---
:1970 Author Organization [facility] Address [address] [place] [address] Care Team Providers Name Role Phone Unknown, Provider Primary Care Provider Arie Elias APRN Unavailable Encounter Details Date Type Department Care Team Description 07/06/2013 Results Only [facility] Matthew Allan MD Laboratory Services - [address] [place] [address] [place] [address] [phone] Social History Tobacco Use Types Packs/Day Years Used Date Never Assessed Sex Assigned at Date Recorded Not on file documented as of this encounter Plan of Treatment Not on filedocumented as of this encounter Procedures Procedure Name Priority Date/Time Associated Diagnosis Comme [facility] SURGICAL PATHOLOGY Routine 07/06/2013 9:01 EST Re sults for this procedure are i n the results section. documented in this encounter Results SURGICAL PATHOLOGY (07/06/2013 9:01 EST) Pathology Report: SURGICAL PATHOLOGY REPORT [facility] Reports generated via electronic interface contain julee ginal data; LAB however they are lacking the format of the original re port. Caution should be taken when reading/interpreting unfo rmatted reports. Name: ? JOHANNE DELACRUZ ? Accession #: ? [id number] ? : ? 1970 (Age: 42) ??F ? Collect Date: ? 07/06/2013 ? Location: ? [facility] ? Receive Date: ? 014 ? Provider: FRANCES ALLAN MD Copy to: ARIE ELIAS MARRIAGE AND FAMILY THERAPIST ? Final Pathologic Diagnosis: BREAST, LEFT, 2 O'CLOCK, 5 CM FROM NIPPLE, ULTRASOUND GUIDED CORE BIOPSY: - ??Fragments of fibrocystic changes including: ? - ??Usual ductal hyperplasia. ??See comment. ? - ??Columnar cell change. ? - ??Adenosis. ? - ??Interlobular fibrosis. - ??Portion of skin with no specific pathologic featur es. Comment: Results were discussed with Dr. Frances Allan on Thursday, July 11, 2013, via telephone at 14:15. ??(Dr. Rodríguez) Document reviewed and electronically signed by: ELYSIA RODRÍGUEZ MD Report ??Date: 07/11/2013 14:17 By the signature above, the attending physician certif ies that he/she has personally conducted a gross and/or microscopic examin ation of the described specimens and rendered or confirmed the above diagnosi s. Specimen(s) Received: Ultrasound guided core biopsy, left breast 2 o'clock, 5 cm from nipple Clinical History: U.S. indeterminate Gross Description: ? Received in formalin labelled with proper patient identification (initials P, G) and left breast 2 o'clock, 5 cm from nipp le U/S core biopsy are five yellow and white firm tissue cores (0.2 cm to 0.6 cm in length, and each 0.1 cm in diameter). Entirely submitted in blocks 1-2. Time removed from patient: ??07/06/2013 1520 hours Time placed in formalin: ??07/06/2013 1520 hrs. Time out of formalin: ??07/07/2013 1000 hrs. Glenis Romano 07/07/2013 10:00 AM End of Report Specimen Performing Organization Address City/State/ZIP Code Phon e Number [facility] [address] [place] [address] SERVICES [facility] [address] [place] [address] documented in this encounter Visit Diagnoses Not on filedocumented in this encounter Care Teams Rail Transportation Tabeler Relationship Specialty Start Date End Date Unknown, Provider, PCP - General 07/06/13 07/06/13 Arie Elias, ALFONSO 07/07/13 [address] [place] [phone] documented as of this encounter
--- OUTSIDE RECORDS SUMMARY | 2022-01-24 19:07 | XMS_ITS | Encounter Summary ---
:1970 Author Organization [facility] Address [address] [place] [address] Care Team Providers Name Role Phone Unavailable Primary Care Provider Unavailable Encounter Details Date Type Department Care Team Description 11/14/1999 Results Only [facility] - Zabrina Hagen NP conversion [address] [place] [address] Social History Tobacco Use Types Packs/Day Years Used Date Never Assessed Sex Assigned at Date Recorded Not on file documented as of this encounter Plan of Treatment Not on filedocumented as of this encounter Procedures Procedure Name Priority Date/Time Associated Diagnosis Comme [facility] CYTOPATHOLOGY Routine 11/14/1999 0:00 EDT Results for this procedure are i n the results section . documented in this encounter Results CYTOPATHOLOGY (11/14/1999 0:00 EDT) Pathology Report: CYTOPATHOLOGY REPORT [facility] Reports generated via electronic interface contain julee ginal data; however they are lacking the format of the original re port. Caution should be taken when reading/interpreting unfo rmatted reports. Name: ? JOHANNE DELACRUZ ? Accession #: ? [id number] : ? 1970 (Age: 28) ??F ?Collect Date: ? 10/1999 Location: ? [facility] ? Receive Date : ? 11/18/1999 Provider: ?ZABRINA FARFAN LOGGING RAFTER LABORER Copy to: ? Specimen/Source: ?ThinPrep Pap Test, Cervix/ Endocervix Last Menstrual Period: ? 10/17/99 Previous Gynecologic Pathology: ? HSIL: 1994 Treatment History: ? Cryotherapy: 1997 CINI Colposcopy: Chronic Cx. ? SPECIMEN ADEQUACY ? Satisfactory for evaluation. GENERAL CATEGORIZATION ? Within Normal Limits ? Document reviewed and electronically signed by: ? MADALYN Guzman(ASCP) ? Report Date: ??11/20/1999 07:33 End of Report Specimen Performing Organization Address City/State/ZIP Code Phon e Number [facility] [address] [place] [address] SERVICES [facility] [address] [place] [address] documented in this encounter Visit Diagnoses Not on filedocumented in this encounter
--- OUTSIDE RECORDS SUMMARY | 2022-01-24 19:07 | XMS_ITS | Encounter Summary ---
:1970 Author Organization [facility] Address [address] [place] [address] Care Team Providers Name Role Phone Unavailable Primary Care Provider Unavailable Encounter Details Date Type Department Care Team Description 09/29/2005 Results Only [facility] - Clarita Hampton, Ida diaz, conversion SALES EXECUTIVE [address] [place], [place] [phone] [place] [phone] (Wo rk) Social History Tobacco Use Types Packs/Day Years Used Date Never Assessed Sex Assigned at Date Recorded Not on file documented as of this encounter Plan of Treatment Not on filedocumented as of this encounter Procedures Procedure Name Priority Date/Time Associated Diagnosis Comme nts CYTOPATHOLOGY Routine 09/29/2005 0:00 EDT Results for this procedure are i n the results section . documented in this encounter Results CYTOPATHOLOGY (09/29/2005 0:00 EDT) Pathology Report: CYTOPATHOLOGY REPORT [facility] Reports generated via electronic interface contain julee ginal data; however they are lacking the format of the original re port. Caution should be taken when reading/interpreting unfo rmatted reports. Name: ? JOHANNE DELACRUZ ? Accession #: ? [id number] : ? 1970 (Age: 34) ??F ?Collect Date: ? 09/09 Location: ? [facility] ? Receive Date : ? 10/01/2005 Provider: ?KRISTAL DULCE SALES EXECUTIVE Copy to: ? Specimen/Source: ?ThinPrep Pap Test, E ndocervix, processed on Tern ThinPrep Imaging System, with manual evaluation Last Menstrual Period: ? 09/22/2005 Other: ? Additional clinical informat ion: Previous atypical. Negative for intraepithelial lesion or malignancy (NILM) (12/24/04) ? SPECIMEN ADEQUACY ? Satisfactory for Evaluation - transformation zone component present GENERAL CATEGORIZATION ? Negative for Intraepithelial Lesion or Malignan cy ? Document reviewed and electronically signed by: ? BARBARA Purvis(ASCP) ? Report Date: ??10/02/2005 14:55 End of Report Specimen Performing Organization Address City/State/ZIP Code Phon e Number [facility] [address] [place] [address] SERVICES [facility] [address] [place] [address] documented in this encounter Visit Diagnoses Not on filedocumented in this encounter
--- OUTSIDE RECORDS SUMMARY | 2022-01-24 19:07 | XMS_ITS | Encounter Summary ---
:1970 Author Organization [facility] Address [address] [place] [address] Care Team Providers Name Role Phone Unavailable Primary Care Provider Unavailable Encounter Details Date Type Department Care Team Description 09/10/2007 Results Only [facility] - Clarita Hampton, Ida diaz, conversion MARINE INSULATOR [address] [place], [place] [id number] [place] [phone] (Wo rk) Social History Tobacco Use Types Packs/Day Years Used Date Never Assessed Sex Assigned at Date Recorded Not on file documented as of this encounter Plan of Treatment Not on filedocumented as of this encounter Procedures Procedure Name Priority Date/Time Associated Diagnosis Comme nts CYTOPATHOLOGY Routine 09/10/2007 0:00 EDT Results for this procedure are i n the results section . documented in this encounter Results CYTOPATHOLOGY (09/10/2007 0:00 EDT) Pathology Report: CYTOPATHOLOGY REPORT [facility] Reports generated via electronic interface contain julee ginal data; however they are lacking the format of the original re port. Caution should be taken when reading/interpreting unfo rmatted reports. Name: ? JOHANNE DELACRUZ ? Accession #: ? [id number] : ? 1970 (Age: 36) ??F ?Collect Date: ? 05/0 06/2007 Location: ? [facility] ? Receive Date : ? 09/13/2007 Provider: ?KRISTLA BANGURADEAU MARINE INSULATOR Copy to: ? Specimen/Source: ? ThinPrep Pap Test, Cervix/Endocervix, processed on [employer] ThinPrep Imaging System, with manual evaluation Last Menstrual Period: ? 09/10/07 Other: ? Additional clinical information: Previous Atypic HPVA - HPV testing requested if ASC-US on the current ThinPrep Pap test. ? SPECIMEN ADEQUACY ? Satisfactory for Evaluation - transformation zone component present GENERAL CATEGORIZATION ? Negative for Intraepithelial Lesion or Malignan cy INTERPRETATION ? Shift in tavon present suggestive of bacterial vaginosis. ? Document reviewed and electronically signed by: ? BARBARA Holt(ASCP) ? Report Date: ??09/15/2007 14:40 End of Report Specimen Performing Organization Address City/State/ZIP Code Phon e Number [facility] [address] [place] [address] SERVICES [facility] [address] [place] [address] documented in this encounter Visit Diagnoses Not on filedocumented in this encounter
--- OUTSIDE RECORDS SUMMARY | 2022-01-24 19:07 | XMS_ITS | Encounter Summary ---
:1970 Author Organization [facility] Address [address] [place] [address] Care Team Providers Name Role Phone Unavailable Primary Care Provider Unavailable Encounter Details Date Type Department Care Team Description 02/28/2009 Orders Only [facility] Kristal Hampton, Laboratory Services - [address] [phone] Social History Tobacco Use Types Packs/Day Years Used Date Never Assessed Sex Assigned at Date Recorded Not on file documented as of this encounter Plan of Treatment Not on filedocumented as of this encounter Procedures Procedure Name Priority Date/Time Associated Diagnosis Comme [facility] CYTOPATHOLOGY Routine 02/28/2009 0:00 EDT Results for this procedure are i n the results section . documented in this encounter Results CYTOPATHOLOGY (02/28/2009 0:00 EDT) Pathology Report: CYTOPATHOLOGY REPORT ? [facility] Reports generated via electr onic interface contain original data; ? however they are lacking the format of the original report. ? Caution should be taken when reading/interpreting unformatted reports. ? Name: ? JOHANNE DELACRUZ ? Accession #: ? [id number] ? : ? 1970 (Age: 38) ??F ?Collect Date: ? 02/28/2009 ? Location: ? [facility] ? Receive Date: ? 03/02/2009 ? Provider: ?KRISTAL BAINS ? Copy to: ? Specimen/Source: ? Pap Test, Cervix/Endocervix, ThinPrep Imaging System ? with manual evaluation ? Last Menstrual Period: ? 10/11/09 ? Previous Gynecologic Patholo gy: ? ASC-US: previous ? Other: ? HPVA - HPV testing requested if ASC-US on the current ThinPrep Pap test. ? SPECIMEN ADEQUACY ? Satisfactory for Eval uation ? - transformation zone compon ent present ? GENERAL CATEGORIZATION ? Negative for Intraepi thelial Lesion or Malignancy ? Document reviewed and electr onically signed by: ? Sana Verville,CT(ASCP) ? Report Date: ??10/30/ 2009 15:13 ? End of Report ? Specimen Performing Organization Address City/State/ZIP Code Phon e Number [facility] [address] [place] [address] SERVICES [facility] [address] [place] [address] documented in this encounter Visit Diagnoses Not on filedocumented in this encounter
--- OUTSIDE RECORDS SUMMARY | 2022-01-24 19:07 | XMS_ITS | Encounter Summary ---
:1970 Author Organization [facility] Address [address] [place] [address] Care Team Providers Name Role Phone Unavailable Primary Care Provider Unavailable Encounter Details Date Type Department Care Team Description 05/21/2001 Results Only [facility] - Amena Vargas CNM [facility] [address] [place] [id number] Social History Tobacco Use Types Packs/Day Years Used Date Never Assessed Sex Assigned at Date Recorded Not on file documented as of this encounter Plan of Treatment Not on filedocumented as of this encounter Procedures Procedure Name Priority Date/Time Associated Diagnosis Comme nts CYTOPATHOLOGY Routine 05/21/2001 0:00 EST Results for this procedure are i n the results section . documented in this encounter Results CYTOPATHOLOGY (05/21/2001 0:00 EST) Pathology Report: CYTOPATHOLOGY REPORT [facility] Reports generated via electronic interface contain julee ginal data; however they are lacking the format of the original re port. Caution should be taken when reading/interpreting unfo rmatted reports. Name: ? JOHANNE DELACRUZ ? Accession #: ? [id number] : ? 1970 (Age: 30) ??F ?Collect Date: ? 05/11 Location: ? [facility] ? Receive Date : ? 05/24/2001 Provider: ?AMENA KELLEY CNM Copy to: ? Specimen/Source: ?ThinPrep Pap Test, Cervix/ Endocervix Last Menstrual Period: ? 07/05/00 Menstrual/ Status: ? Post ? SPECIMEN ADEQUACY ? Satisfactory for Evaluation - transformation zone component present GENERAL CATEGORIZATION ? Negative for Intraepithelial Lesion or Malignan cy INTERPRETATION ? Shift in tavon present suggestive of bacterial vaginosis. ? Document reviewed and electronically signed by: ? BARBARA Umana(ASCP) ? Report Date: ??05/25/2001 12:54 End of Report Specimen Performing Organization Address City/State/ZIP Code Phon e Number [facility] [address] [place] [address] SERVICES [facility] [address] [place] [phone] documented in this encounter Visit Diagnoses Not on filedocumented in this encounter
[2022-01-24 20:35] LABS: Anion Gap 10.8 mmol/L (3-11); BUN 11 mg/dL (7-18); CO2 21.2 mmol/L (21.0-32.0); CREATININE 0.8 mg/dL (0.55-1.02); Calcium 8.4 mg/dL (8.5-10.1); Calculated LDL 138 mg/dL (<100); Chloride 109 mmol/L (98-107); Cholesterol 241 mg/dL (<200); Estimated GFR 89.71 (mL/min/1.73m2); Glucose 75 mg/dL (74-106); HDL Cholesterol 88 mg/dL (40-60); Potassium 4.1 mmol/L (3.5-5.1); Sodium 141 mmol/L (136-145); Triglyceride 79 mg/dL (<150)
== END 2022-01-24 18:58 | disposition home or self-care (01) ==
LOC: NCHCN 18:57
PROVIDERS: PCP Nurse Practitioner Family; Visit Provider Nurse Practitioner Family
DX: E78.5 Hyperlipidemia, unspecified (principal); N28.9 Disorder of kidney and ureter, unspecified; R19.8 Other specified symptoms and signs involving the digestive system and abdomen; R51.9 Headache, unspecified; R60.0 Localized edema
CPT/HCPCS: 80048; 80061

== ENCOUNTER 2022-08-07 01:29 | Outpatient (CLI) | payer OTHER, SELFPAY ==
--- NOTE | 2022-08-07 | DI.MAMMO_ITS ---
Exam(s) MAMMO SCREENING EXAM: MAMMO SCREENING CLINICAL HISTORY: SCREENING MAMMO FOR BREAST CANCER Z12.39 FAM HX Z80.3 TECHNIQUE: Mammograms were interpreted according to the usual protocol including computer analysis w ith CAD system, tomosynthesis and C-view imaging. COMPARISON: 2013 through 2021 FINDINGS: The breasts are composed of heterogeneously dense fibroglandular densities, Breast Density category C . No suspicious masses or suspicious microcalcifications are seen. There are changes small lymph node p osterior left breast. No skin thickening or abnormal axillary lymph nodes are seen. There has been no significant change from prior exams. IMPRESSION: BI-RADS Category 1, Negative mammogram. Yearly screening mammography is recommended. Breast Density Category C, heterogeneously Dense. The mammogram demonstrates the patient's breast tissue is dense. Dense breast tissue is very common a nd is not abnormal but dense breast tissue can make it harder to find cancer on a mammogram. Also, de nse breast tissue may increase breast cancer risk. This information about the result of the mammogram report was provided to the patient to raise their awareness. Use this report when you speak with the patient about their risks for breast cancer, which includes their family history. At that time, you may recommend additional screening tests (Ultrasound or MRI) as they might be useful based on their r isk. A negative radiographic report should not delay biopsy if a dominant or clinically suspicious mass is present. Up to ten percent of cancers are not identified on mammography. A negative report may reinforce clinical impression. Adenosis and dense breasts may obscure an underlying neoplasm. False positive reports average 6 to 10%.
== END 2022-08-07 01:49 ==
LOC: DI 01:29
PROVIDERS: PCP Nurse Practitioner Family; Visit Provider Nurse Practitioner Family
DX: Z12.31 Encounter for screening mammogram for malignant neoplasm of breast (principal); Z80.3 Family history of malignant neoplasm of breast
CPT/HCPCS: 77063; 77067

== ENCOUNTER 2023-01-02 01:38 | Outpatient (CLI) | payer SELFPAY ==
[2023-01-02 11:58] LABS: HCT 37.4 % (36.0-46.0); HGB 12.5 g/dL (11.2-15.7); MCH 31.5 pg (27.0-33.0); MCHC 33.4 % (32.0-36.0); MCV 94 fL (80-95); MPV 8.6 fL (8.0-11.0); Platelet Count 359 10^3/uL (130-400); RBC 3.97 10^6/uL (3.93-5.22); RDW 13.9 % (11.7-14.6); RDW-SD 48.5 fL; WBC 4.74 10^3/uL (4.4-10.8)
[2023-01-02 12:51] LABS: ALT 52 U/L (14-59); AST 26 U/L (15-37); Albumin 3.2 g/dL (3.4-5.0); Alkaline Phosphatase 49 U/L (46-116); Anion Gap 8.5 mmol/L (3-11); BUN 11 mg/dL (7-18); Bilirubin, Total 0.3 mg/dL (0.2-1.0); CO2 24.5 mmol/L (21.0-32.0); Calcium 8.6 mg/dL (8.5-10.1); Chloride 106 mmol/L (98-107); Estimated GFR 68.21 (mL/min/1.73m2); Ferritin 59 ng/mL (8-252); Glucose 87 mg/dL (74-106); Potassium 4.2 mmol/L (3.5-5.1); Sodium 139 mmol/L (136-145); TSH (W/Ref FT4) 4.12 uIU/mL (0.36-3.74); Total Protein 7.1 g/dL (6.4-8.2); Vitamin B12 1460 pg/mL (193-986)
== END 2023-01-02 01:39 | disposition home or self-care (01) ==
LOC: LBO 01:39
PROVIDERS: PCP Nurse Practitioner Family; Visit Provider Psychiatry & Neurology Neurology
DX: G47.61 Periodic limb movement disorder (principal); R41.3 Other amnesia; G62.9 Polyneuropathy, unspecified
CPT/HCPCS: 36415; 80053; 85027; 82607; 82728; 84439; 84443

== ENCOUNTER 2023-01-02 02:27 | Outpatient (CLI) | payer SELFPAY ==
--- NOTE | 2023-01-06 21:23 | PDOC.EEG_ITS ---
Neurology EEG EEG: [facility] Department of Neurology LONG-TERM AMBULATORY EEG REPORT Date of Recordin01/02/23 at 10:34:14 to 01/03/23 at 12:58:51 Interpreting Physician: Dr. Haritha Butler PCP/Referring Provider: Breann Elias NP Reason for study: Ms. Smith presents with frequent limb and body jerking at times associated with ?CED. Current Medications: Home Medications Medication Instructions Recorded Confirmed Type multivitamin (Daily Multi-Vitamin 1 ea PO DAILY 06/06/14 12/31/22 History tablet) topiramate 100 mg tablet 100 mg PO BID 12/23/19 12/31/22 History norethindrone acetate 1 mg-ethinyl 1 tab PO DAILY 03/06/20 12/31/22 History estradiol 20 mcg tablet (Microgestin) bupropion HCl 100 mg tablet 300 mg PO DAILY 07/21/22 12/31/22 History citalopram 10 mg tablet 10 mg PO DAILY 07/21/22 12/31/22 History metformin 500 mg tablet 2,000 mg PO DAILY 07/21/22 12/31/22 History rizatriptan 10 mg tablet 10 mg PO ONCE PRN 07/21/22 12/31/22 History METHODS: An 18-channel digitized electroencephalogram was recorded in the ambulatory setting with video. The 10/20 international system of electrode placement was used and bipolar and referential electrode montages were recorded. In addition to EEG the patient was monitored for EKG and by video. Activation procedures of photic stimulation and hyperventilation were performed if applicable. The duration of the recording was ~26.5 hours. DESCRIPTION OF EEG: Waking background activity: During maximal wakefulness a 10-Hz posterior background rhythm was present which was well-modulated, symmetrical, reactive to eye opening, and of moderate voltage. Faster frequencies were present in the bilateral anterior head regions. There was a normal anterior-posterior voltage gradient. Drowsy and sleeping background activity: During drowsiness, there was attenuation of the posterior dominant background rhythm and vertex waves. Normal stage II and III sleep was present with symmetrical sleep spindles, K- complexes, and vertex waves with slowing of the background rhythm to delta/theta frequencies. REM sleep manifested by rapid lateral eye movements and faster background rhythms was recorded. Arousal was unremarkable except for the frequency which seemed more than usual during sleep. Interictal abnormalities: none. Ictal findings: Approximately 34 button pushes by patient. Presumably for limb/body jerking, but diary was not returned. -EEG findings: 0-3 second bursts of generalized muscle/motion artifact without any underlying/preceding abnormalities. Activating Procedures: Photic stimulation was performed which produced a symmetrical posterior driving response at various flash frequencies. Hyperventilation was performed with moderate effort and produced no physiological slowing of the background. EKG: EKG revealed normal sinus rhythm. INTERPRETATION: This long-term EEG is normal during the awake and sleep states as well as during the activation procedures. Numerous events captured as above without associated EEG abnormalities. PRIOR EEG: none CLINICAL CORRELATION: No focal regions of cerebral dysfunction or epileptiform activity was present. Numerous events captured which would be consistent with non-epileptic events. Frequent nocturnal awakenings noted which could be indicative of an underlying sleep disorder. Haritha Butler MD
== END 2023-01-02 02:28 | disposition home or self-care (01) ==
LOC: RT 02:28
PROVIDERS: PCP Nurse Practitioner Family; Visit Provider Psychiatry & Neurology Neurology
DX: R41.3 Other amnesia (principal); G47.61 Periodic limb movement disorder; R41.840 Attention and concentration deficit
CPT/HCPCS: 95714

== ENCOUNTER 2023-01-27 03:13 | Outpatient (RCR) | payer SELFPAY ==
[2023-01-27] MEDS: Normal Saline Flush 10 ML SYR IVP (09:14)
[2023-01-27] MEDS: IRON SUCROSE COMPLEX 200 MG in Normal Saline 100 ML 440 MG IVPB (09:21)
== END 2023-02-07 23:59 | disposition home or self-care (01) ==
LOC: INF 03:13
PROVIDERS: PCP Nurse Practitioner Family; Visit Provider Psychiatry & Neurology Neurology
DX: D50.9 Iron deficiency anemia, unspecified (principal)
CPT/HCPCS: 96365; J1756

== ENCOUNTER 2023-02-13 19:37 | Outpatient (REF) | payer BC, SELFPAY ==
[2023-02-13 20:05] LABS: Ferritin 254 ng/mL (8-252); TSH (W/Ref FT4) 2.27 uIU/mL (0.36-3.74)
[2023-02-13 20:21] LABS: Iron 61 ug/dL (50-170); Total Iron Binding Capacity 302 ug/dL (250-450); Transferrin Sat 20 % (15-50)
== END 2023-02-13 19:38 | disposition home or self-care (01) ==
LOC: NCHCN 19:37
PROVIDERS: Visit Provider Nurse Practitioner Family
DX: E03.9 Hypothyroidism, unspecified (principal); R25.3 Fasciculation; F41.8 Other specified anxiety disorders; G47.00 Insomnia, unspecified
CPT/HCPCS: 82728; 83540; 83550; 84443

== ENCOUNTER 2023-02-20 04:09 | Outpatient (RCR) | payer BC, SELFPAY ==
[2023-02-20] MEDS: Normal Saline Flush 10 ML SYR IVP (08:10)
[2023-02-20] MEDS: IRON SUCROSE COMPLEX 200 MG in Normal Saline 100 ML 440 MG IVPB (08:10)
== END 2023-03-10 23:59 | disposition home or self-care (01) ==
LOC: INF 04:09
PROVIDERS: PCP Nurse Practitioner Family; Visit Provider Psychiatry & Neurology Neurology
DX: D50.9 Iron deficiency anemia, unspecified (principal)
CPT/HCPCS: 96365; J1756

== ENCOUNTER → 2023-05-12 00:49 | Outpatient (CLI) | payer OTHER, SELFPAY ==
--- NOTE | 2023-05-12 08:00 | DI.MRI_ITS ---
Exam(s) MR LOWER JOINT LT WO EXAM: MR LOWER JOINT LT WO CLINICAL HISTORY: LEFT KNEE INJURY, ? MENISCAL TEAR,internal derangement,m23.92. TECHNIQUE: Multiplanar multisequence MRI was performed. COMPARISON: CR XR KNEE LT 4V from 04/10/2023 FINDINGS: BONES: No fracture is seen. There is marrow edema seen in the proximal tibia particularly the medial tibial plateau. There is also marrow edema seen in the lateral aspect of the lateral femoral condyl e. JOINTS: Articular cartilage is unremarkable. There is a small amount of fluid in the joint space. TENDONS: Extensor mechanism: Unremarkable. Medial retinaculum: Unremarkable. Lateral retinaculum: Unremarkable. Popliteus: Unremarkable. MUSCLES: Unremarkable. MENISCI: The medial meniscus is unremarkable. The lateral meniscus is unremarkable. SOFT TISSUES: There is mild edema seen anterior to the anterior tibial tuberosity. LIGAMENTS: Anterior Cruciate: There is at least a partial tear of the anterior cruciate ligament proximally. Posterior Cruciate: Unremarkable. Medial Collateral:Unremarkable. Lateral Collateral: Unremarkable. OTHER: IMPRESSION: 1. Anterior cruciate ligament tear. 2. No evidence of a meniscal tear. 3. Contusions involving the proximal tibia and lateral femoral condyle. 4. Small joint effusion. DATA REPOSITORY:
== END ==
PROVIDERS: PCP Nurse Practitioner Family; Visit Provider Student in an Organized Health Care Education/Training Program
DX: S83.512A Sprain of anterior cruciate ligament of left knee, initial encounter (principal); X58.XXXA Exposure to other specified factors, initial encounter
CPT/HCPCS: 73721

== ENCOUNTER 2023-06-10 13:20 | Outpatient (CLI) | payer OTHER, SELFPAY ==
[2023-06-10 16:30] LABS: Abs Immature Grans 0.01 10^3/uL (0.0-0.06); Absolute Basophil Count 0.05 10^3/uL (0.0-0.2); Absolute Eosinophil Count 0.12 10^3/uL (0.0-0.7); Absolute Lymphocyte Count 2.75 10^3/uL (1.2-3.4); Absolute Monocyte Count 0.66 10^3/uL (0.1-0.8); Basophils % 0.8; Eosinophils % 1.9; HCT 39.3 % (36.0-46.0); HGB 13.3 g/dL (11.2-15.7); Immature Grans % 0.2; Lymphocytes % 44.4; MCH 31.4 pg (27.0-33.0); MCHC 33.8 % (32.0-36.0); MCV 93 fL (80-95); MPV 8.5 fL (8.0-11.0); Monocytes % 10.7; Platelet Count 348 10^3/uL (130-400); RBC 4.24 10^6/uL (3.93-5.22); RDW 13.6 % (11.7-14.6); RDW-SD 46.8 fL; WBC 6.19 10^3/uL (4.4-10.8)
[2023-06-10 17:15] LABS: Iron 71 ug/dL (50-170); Total Iron Binding Capacity 293 ug/dL (250-450); Transferrin Sat 24 % (15-50)
[2023-06-10 17:30] LABS: ALT 42 U/L (14-59); AST 20 U/L (15-37); Albumin 3.5 g/dL (3.4-5.0); Alkaline Phosphatase 48 U/L (46-116); BUN 13 mg/dL (7-18); Bilirubin, Total 0.3 mg/dL (0.2-1.0); Calcium 8.7 mg/dL (8.5-10.1); Chloride 107 mmol/L (98-107); Estimated GFR 68.21 (mL/min/1.73m2); Ferritin 247 ng/mL (8-252); Glucose 90 mg/dL (74-106); Potassium 3.8 mmol/L (3.5-5.1); Sodium 141 mmol/L (136-145); TSH (W/Ref FT4) 3.41 uIU/mL (0.36-3.74); Total Protein 7.2 g/dL (6.4-8.2)
== END 2023-06-10 13:21 | disposition home or self-care (01) ==
LOC: LBO 13:22
PROVIDERS: PCP Nurse Practitioner Family; Visit Provider Nurse Practitioner Family
DX: R53.83 Other fatigue (principal)
CPT/HCPCS: 36415; 80053; 82728; 83540; 83550; 84443; 85025

== ENCOUNTER 2023-09-25 09:30 | Day surgery (SDC) | payer OTHER, SELFPAY ==
[2023-09-25] VITALS (34 sets, daily range): BP systolic 87–142; BP diastolic 19–73; PULSE 63–79; RESP 13–27; TEMP 36–37; O2SAT 97–100; BMI 29.9
--- NOTE | 2023-09-25 07:09 | PDOC.DSDIS_ITS ---
Date of service: 09/25/23 Time of Service: 16:00 Discharge Plan Disposition Patient Disposition: Home Discharge Details Attending Provider: Ferny Navarrete Primary Care Provider: Breann Elias Home Meds and New Rx's Prescriptions: New naproxen 250 mg tablet 250 - 500 mg PO BID PRNQty: 40 0RF Rx Instructions: take with a meal aspirin 81 mg tablet,delayed release (DR/EC) 81 mg PO DAILY 14 Days Qty: 14 0RF tramadol 50 mg tablet 50 mg PO Q8H PRN (Reason: severe pain) Qty: 9 0RF Continued bupropion HCl 100 mg tablet 300 mg PO DAILY citalopram 10 mg tablet 10 mg PO DAILY rizatriptan 10 mg tablet 10 mg PO ONCE PRN Rx Instructions: as a single dose multivitamin [Daily Multi-Vitamin] 1 EACH tablet 1 ea PO DAILY topiramate 100 mg tablet 100 mg PO BID norethindrone ac-eth estradiol [Microgestin 05/30 ()] 1-20 mg-mcg tablet 1 tab PO DAILY hydroxyzine HCl 25 mg tablet 25 mg PO DAILY PRN Patient Comments: TAKE 1 TABLET BY MOUTH THREE TIMES DAILY NEEDED magnesium oxide 400 mg (241.3 mg magnesium) tablet 400 mg PO HS Patient Comments: TAKE 1 TABLET BY MOUTH AT BEDTIME vitamin B complex [Balanced B-50] Tablet 1 tab PO DAILY Discharge Instructions Additional Instructions: Surgery: Left knee arthroscopy with ACL REPAIR, partial lateral meniscectomy, and medial femoral condyle chondroplasty Activity: Weightbearing as tolerated. No brace or crutches needed as soon as comfortable and stable on knee. Restore full knee extension as soon as possible. Perform early quad sets/quadriceps isometrics. Gradually increase flexion to full. Recommend elevation to minimize swelling discomfort. Encourage ankle pumps and wiggle toes to improve circulation. A physical therapy prescription will be sent electronically to begin in 2 to 3 weeks. Av oid sports activities for about 9 months. Prescriptions: Aspirin 81 mg take 1 daily to prevent a blood clot for 14 days, starting tomorrow morning Naproxen 250 mg take 1-2 every 12 hours with a meal as needed for moderate pain Tramadol 50 mg take 1 every 6-8 hours as needed for severe pain You may use [id number]-eio-javlyww Tylenol (acetaminophen) as needed for mild pain. These pain medications may be taken all at once or in different combinations as needed. Also, recommend Colace (docusate) as a stool softener as surgery and pain medicine cause constipation. You may try elob-zgv-evnktup diphenhydramine (Benadryl) 25-50 mg nightly as a sleep aid Dressings: Leave dressing in place for 3 days. May then remove and leave open to air or cover incisions with Band-Aids. Leave the sticky Steri-Strips in place until they fall off or remove them after you shower. May shower after 5 days. Follow-up: 10-[address] Navarrete You may take off the leg compression stockings this evening at home. You may also leave them on a few days longer if you have a history of leg swelling or edema. Let us know right away if you develop any redness, drainage, fevers, chest pain, or trouble breathing. Do not drink alcohol or drive for at least 24 hours after anesthesia. Please call the office during business hours with any questions or concerns. Stand Alone Forms: Anesthesia Discharge Inst., Danny Soria (U) Referrals: Ferny Navarrete MD [ [facility] STAFF PHYSICIAN] - 10/07/23 9:45 am Discharge Orders Discharge Orders: Discharge Order (Routine); Ordered 09/25/23 Ordered By: Ferny Navarrete DS: Diagnosis Discharge Diagnosis (1) Left ACL tear: Status: Acute (2) Stiffness of left knee: Status: Acute
--- NOTE | 2023-09-25 07:11 | ROE_ITS ---
Date of service: 09/25/23 Time of Service: 12:00 Operative Note Operative Note DATE OF PROCEDURE: 09/25/23 PRE-OP DIAGNOSIS: Right knee: 1. ACL rupture 2. Stiffness Right knee: 1. Partial ACL rupture 2. Stiffness 3. Medial femoral condyle cartilage tear 4. Lateral meniscus tear PROCEDURE: Right knee: 1. ACL REPAIR, CPT #56198 2. Partial lateral meniscectomy, CPT #01128 3. Medial femoral condyle chondroplasty, CPT #86217 2. Manipulation under anesthesia, CPT #70563 SURGEON: Ferny Navarrete [employer]ATASTR[employer] CLAIMS SUPERVISOR: Christal Borrero ANESTHESIA TYPE: Local By Surgeon, General LMA/ETT and Primary Nerve Block Refer to Anesthesia Record ESTIMATED BLOOD LOSS: 5 TOURNIQUET TIME: 0 COMPLICATIONS: None Patient was transported to: PACU Patient's condition: stable Implants: Arthrex 4.75 mm bio composite SwiveLock Indications: Please see complete medical record for details. Findings: Exam under anesthesia: Mildly restricted extension, moderately restricted flexion, stable varus and valgus, equivocal Janette, negative anterior and po sterior drawer, negative pivot shift Arthroscopic findings: Moderately significant patellofemoral anterior and intercondylar synovitis. Moderate thickness with unstable cartilage flap edges medial femoral condyle distal aspect about 1 cm x 1 cm cartilage tear. Intact medial meniscus. Mild remainder medial cartilage chondromalacia. Intact PCL. ACL with apparent single bundle complete tear with this bundle flipped anteriorly and laterally and the remaining bundle attached to the proximal and posterior aspect of the ACL origin of the ACL origin and somewhat scarred to the PCL. Mild white zone body lateral meniscus tearing and fraying at the area of the root. Intact lateral cartilage. Procedure Description: In the operating room, general anesthesia was induced. The patient was positioned supine on the operating room table. All bony prominences were well- padded. Preoperative antibiotics were administered. The knee was prepped and draped in the usual sterile fashion. The correct patient, procedure, and side of the procedure were all verified prior to incision. Exam under anesthesia was performed. The knee was about 5 degrees short of full extension and lacking the terminal hyperextension on the other side, flexion was to about 120 degrees limited more deeply via stiffness and soft tissue envelope. Gently the knee was encouraged into full extension and slight terminal hyper extension, similar to the contralateral side with minor releases felt. The patella was fully mobilized in all directions. Lastly, the knee was encouraged into deep flexion to about 125 degrees limited mostly by thigh to calf impingement. Janette, drawer, and pivot shift testing were all repeated. The Janette exam was equivocal with subtle increased translation and varying amounts of flexion, but reassuring endpoint. Drawer and pivot shift remained completely negative. Local anesthetic containing epinephrine was infiltrated about the planned anteromedial, anterolateral, lateral distal femoral, and pretibial surgery sites. The standard high and tight anterolateral and anteromedial portals were established and a complete diagnostic arthroscopy was performed with relevant findings detailed above. A passport cannula was inserted in both the anteromedial and anterolateral portals. The medial femoral condyle cartilage tearing was inspected. It was partial- thickness and probably reasonably healed from the time of ACL injury now about 6 months ago. However, the edges anteriorly and posteriorly had unstable flaps which were readily demonstrated with the probe, which required resection to a more stable margin removing only as much cartilage is necessary. The remainder of the cartilage bed was probed and stable. The lateral meniscus had a small white zone body tearing as well as at the root with stable remainder meniscus and root. The mechanical shaver was used to resect the torn frayed meniscus edges. In the intercondylar area, the ACL remnant was thoroughly inspected. Numerous arthroscopic images were obtained. Initially, there was a rather mcnally intact appearing ACL remnant scarred to the PCL with some apparent intact fibers deep in the notch. The ACL was teased off the PCL using arthroscopic scissors and the remnant was more clearly exposed after resection of significant anterior and intercondylar synovitis. A moderate notchplasty was performed for proper visualization, ACL surgery, and bone marrow stimulation for healing. The ACL injury then more clearly appeared to be a complete single bundle tear?involving the posterior lateral bundle, which was retracted to the tibia and flipped with the diminutive remnant present toward the lateral compartment. There was minimal PL bundle remnant on the lateral wall, but there was intact AM deep and high in the notch. The displaced PL abundant tissue was poor quality and debrided to the remainder of the ACL remnant, which had good length given the preserved femoral attachments and scarring to the PCL. The tissue grasper was then used to assess the about 50% ACL remnant. The tissue quality was rather good and it was readily reducible over the deficient area of the ACL origin on the lateral wall. Given the patient age, significant challenges and difficulties with ACL injuries and surgeries, especially equivocal objective instability testing, decision was made to proceed with attempted less morbid ACL REPAIR. The knee scorpion was used to shuttle to suture tape FiberLink's in cinch mode through the mid to proximal ACL remnant. Provisional reduction with the knee maintained in hyperflexion over the deficient lateral wall origin was confirmed with the suture grasper with the ACL draping nicely from deep to shallow and the notch and from medial to lateral trajectory. The punch was used to prepare for the suture anchor, which was loaded with the repair sutures, and deployed nicely with excellent fixation strength in front of the desired and prepared repair zone nicely bringing the ACL tissue from deep to more spread deep to shallow and recreated in the more medial to lateral trajectory. The ACL repaired tissue was good quality. Under visualization, drawer and Janette testing demonstrated good stability. The knee was irrigated and then drained of arthroscopic fluid. Janette exam was improved and stable. Drawer remained negative as did pivot shift. Both portals were copiously irrigated. 3-0 Monocryl was used to close the portals. Mastisol, Steri-Strips, Xeroform, 4 x 4 gauze, and sterile soft roll was applied. The extremity was wrapped gently with an Nba bandage. No knee immobilizer was placed given the need to encourage immediate range of motion to minimize stiffness. The patient awoke from anesthesia without complication and was transferred to the recovery room in a stable condition.
[2023-09-25] MEDS: Lactated Ringers 1,000 ML 30 ML IV (10:14)
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
--- NOTE | 2023-09-25 11:00 | W.ANESNERVE ---
Nerve Block Single Injection Procedure Date and Time Date Performed: 09/25/23 Procedure Start: 10:37 Location Where Procedure Performed Procedure Location: Operating Room Procedure Stop: 10:45 Reason Performed: Postoperative Analgesia Requesting Provider: Ferny Navarrete Timeout Performed Timeout Performed: Yes Monitoring Used ECG, Blood Pressure, SpO2, ETCO2 and See EMR for corresponding vital signs Sterility Sterility: Hand Hygiene, Surgical Cap, Surgical Mask, Sterile Gloves, Eye Protection and Chlorhexidine Sedation Given During Procedure Sedation Given (Indicate Dose Given): Versed IV Dose:: 4mg IVP Patient Mental Status Patient Mental Status: Sedate with meaningful communication Nerve Block 1st Nerve Block: Laterality: Left Block Type: Adductor Canal Ultrasound Image Saved?: Yes Needle / Catheter Used: 100mm SonoPlex II Local Anesthetic Bolus (Indicate Dose Given): Lidocaine used for local infiltration of skin and Ropivacaine 0.5% Dose:: 0.5%/25cc (125mg) Additives (Indicate Dose Given): Epinephrine to make 1:200,000 (5mcg/ml) Dose:: 125mcg and Decadron Dose:: 10mg PF Ultrasound: Sterile probe cover and gel used Nerve Stimulator: Not Used Paresthesia: None Procedure Tolerated: No Complications and Patient tolerated well Procedure Outcome: Successful Performed By: Luther Michelle
--- NOTE | 2023-09-25 11:08 | NUR.NOTE ---
Nursing Note: Pt received nerve block at [id number], was given 4mg Versed by Yrn OLVERA at 1038. Pt BP measurements post op gradually decreasing, 1100: 99/19, 1101: 89/40 1103: 93/36. RN alerted JOB CHANGE CREW MEMBER to change at 1103, Yrn OLVERA arrived at 1103 to assess. Yrn OLVERA advised to give pt 200mL bolus of LR, monitor pt, but that pt had low BP upon arriving on the unit as well. (141/56 at 0932 and 127/62 at 1035). No change in pts orientation/mental status has been observed, pt resting comfortably at this time and is on continuous spO2 and cardiac monitoring. Yrn OLVERA stated that due to patient resting and positioning he is not concerned at this time, advised to give 200mL bolus of LR, and continue monitoring the patient. RN at bedside.
[2023-09-25] MEDS: ceFAZolin 2 GM/50 ML BAG IVPB (12:45)
[2023-09-25] MEDS: Tranexamic Acid 1,000 MG/10 ML VIAL 1000 MG (13:03)
[2023-09-25] MEDS: Bupivacaine 0.25% Pres-Free W/EPI 30 ML VIAL (13:57)
[2023-09-25] MEDS: EPINEPHrine 10 MG/10 ML ML (13:57)
[2023-09-25] MEDS: Normal Saline 10 ML VIAL IJ (14:50)
[2023-09-25] MEDS: HYDROmorphone 2 MG/ML SYR IVP ×2 (14:50→15:01)
--- NOTE | 2023-09-25 15:38 | W.ANESPOSTOP ---
Postoperative Evaluation Date, Time and Location Date Performed: 09/25/23 Time Performed: 15:38 Patient Location: Day Surgery Unit Vital Signs Most Recent Imported Vital Signs: Most Recent Vital Signs Temp Pulse Resp BP Pulse Ox 36.2 C L 74 16 142/59 H 98 09/25/23 15:22 09/25/23 15:22 09/25/23 15:22 09/25/23 15:22 09/25/23 15:22 Pain Score Most Recent Pain Score: Most Recent Pain Score Pain Level 0 09/25/23 15:22 Assessment Mental Status: Awake (Alert & Oriented to Patient Baseline) Airway and Respiratory Function: Patent airway with normal (patient baseline) respiratory exam Cardiovascular Function: Hemodynamically Stable Hydration Status: Adequately Hydrated Nausea & Vomiting: No Nausea or Vomiting Pain: Pain is tolerable per patient Peripheral Nerve Block: Regional nerve block not resolved at time of post operative discharge
== END 2023-09-25 16:34 | disposition home or self-care (01) ==
PROVIDERS: PCP Nurse Practitioner Family; Visit Provider Student in an Organized Health Care Education/Training Program
PROC: (CPT 29888; principal; 2023-09-25 11:30)
DX: S83.512A Sprain of anterior cruciate ligament of left knee, initial encounter (principal); M25.662 Stiffness of left knee, not elsewhere classified; X58.XXXA Exposure to other specified factors, initial encounter
CPT/HCPCS: 29888; 29881; 27570; 29877; 76942; 81025; J0131; J0171; J0690; J1100; J1170; J1885; J2250; J2405; J2704

== ENCOUNTER 2024-04-05 00:44 | Outpatient (CLI) | payer OTHER, SELFPAY ==
--- NOTE | 2024-04-05 | DI.MAMMO_ITS ---
Exam(s) MAMMO SCREENING EXAM: MAMMO SCREENING CLINICAL HISTORY: Screening, family h/o malignant neoplasm of breast, Z80.3 TECHNIQUE: Bilateral full field digital CC and MLO mammographic images were obtained with 3D tomosyn thesis and utilizing computer aided detection (CAD). COMPARISON: Available for comparison. FINDINGS: Masses/Architectural Distortion: The nodule in the upper outer quadrant of the left breast is unchang ed compared to the prior examination. No new nodules are seen. No suspicious areas of architectural distortion are present. Microcalcifications: No suspicious pleomorphic-type are seen. Skin Thickening/Nipple Retraction: None. IMPRESSION: 1. No significant interval change with no specific features of malignancy noted. 2. Unless there is more urgent need, screening mammography is recommended, as per [employer] guidelines. BI-RADS Category 2 - Benign Findings Breast Density - Category B - Scattered areas of fibroglandular density Breast density category C or D implies that the patient has dense breast tissue. Dense breast tissue is very common and is not abnormal but dense breast tissue can make it harder to find cancer on a ma mmogram. Also, dense breast tissue may increase their breast cancer risk. This information about the result of the mammogram report was provided to the patient to raise their awareness. Use this report when you speak with the patient about their risks for breast cancer, which includes their family hist ory. At that time, you may recommend for more screening tests (Ultrasound or MRI) as they might be us eful based on their risk. A negative radiographic report should not delay biopsy if a dominant or clinically suspicious mass is present. Up to ten percent of cancers are not identified on mammography. A negative report may reinforce clinical impression. Adenosis and dense breasts may obscure an underlying neoplasm. False positive reports average 6 to 10%. Patient will receive a letter notifying them of these results.
[2024-04-05 10:24] LABS: Hemoglobin A1C 5.3 % (<5.7)
[2024-04-05 10:42] LABS: TSH (W/Ref FT4) 3.01 uIU/mL (0.36-3.74)
[2024-04-05 10:55] LABS: Calculated LDL 150 mg/dL (<100); Cholesterol 271 mg/dL (<200); HDL Cholesterol 107 mg/dL (40-60); Triglyceride 73 mg/dL (<150)
== END 2024-04-05 01:04 ==
LOC: DI 00:44
PROVIDERS: PCP Nurse Practitioner Family; Visit Provider Nurse Practitioner Family
DX: Z80.3 Family history of malignant neoplasm of breast (principal); Z12.31 Encounter for screening mammogram for malignant neoplasm of breast
CPT/HCPCS: 36415; 77063; 77067; 80061; 83036; 84443

== ENCOUNTER 2024-06-01 16:02 | Outpatient (CLI) | payer OTHER, SELFPAY ==
--- NOTE | 2024-06-01 14:00 | DI.RAD_ITS ---
Exam(s) XR KNEE LT 2V AP,LAT EXAM: XR KNEE LT 2V AP,LAT CLINICAL HISTORY: LEFT KNEE PAIN. TECHNIQUE: 2D digital imaging was performed. Two views. COMPARISON: MR MR LOWER JOINT LT WO from 05/12/2023 FINDINGS: BONES: No acute fracture is present. No bony destructive lesion is seen. JOINTS: The knee is normally aligned. No joint effusion is seen. The joint spaces are maintained. No significant degenerative changes. SOFT TISSUE: Normal. IMPRESSION: Normal radiographs of the left knee. DATA REPOSITORY: RADIATION DOSE DELIVERED:
== END 2024-06-01 16:03 | disposition home or self-care (01) ==
LOC: DIORS 16:02
PROVIDERS: PCP Nurse Practitioner Family; Visit Provider Student in an Organized Health Care Education/Training Program
DX: M94.262 Chondromalacia, left knee
CPT/HCPCS: 73560

== ENCOUNTER 2025-03-16 12:16 | Emergency (ER) | payer OTHER, SELFPAY ==
[2025-03-16 12:19] VITALS: BP 134/52; PULSE 104; RESP 14; TEMP 36.8; O2SAT 97
--- NOTE | 2025-03-16 12:30 | DI.RAD_ITS ---
Exam(s) XR TOE LT GREAT EXAM: XR TOE LT GREAT CLINICAL HISTORY: pain at base of L great toe, unknown injury. TECHNIQUE: 2D digital imaging was performed. Three images were obtained. COMPARISON: No exams were available for comparison FINDINGS: BONES: No acute fracture is present. No bony destructive lesion is seen. JOINTS: No dislocation present. There are mild degenerative changes seen at the 1st MTP joint characterized by joint space narrowing and osteophytes. SOFT TISSUE: Normal. IMPRESSION: 1. No evidence of acute fracture, dislocation, or subluxation. 2. Mild degenerative changes of the 1st MTP joint. DATA REPOSITORY: RADIATION DOSE DELIVERED:
[2025-03-16] MEDS: Diclofenac 1% Gel 100 GM TUBE TP (12:49)
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
--- NOTE | 2025-03-28 16:40 | NUR.NOTE ---
Accessed Pt chart to print off Provider Notes for [facility] paperwork
== END 2025-03-16 15:26 | disposition home or self-care (01) ==
PROVIDERS: Emergency Provider Student in an Organized Health Care Education/Training Program; PCP Nurse Practitioner Family
DX: S99.822A Other specified injuries of left foot, initial encounter (principal); M79.675 Pain in left toe(s); X58.XXXA Exposure to other specified factors, initial encounter
CPT/HCPCS: 99283 ×2; 73660

== ENCOUNTER 2025-04-17 13:06 | Outpatient (REF) | payer OTHER, SELFPAY ==
--- NOTE | 2025-04-17 08:00 | PAPFT_PTH ---
PATIENT: Johanne Prasad LOC: [facility]#:[id number] AGE/SX: 54/F ROOM: RE04/17/[address]: Breann Elias : 1970 BED: DIS: 04/17/2025 SPEC #: [id number] RECD: 04/17/25 18:11 STATUS: [place] REIvet #: [id number] JAMES: 04/17/25 08:[address]: Breann Elias DEPT: [facility] Cytology RECD BY: Flores Tate Tissues: 1 - CX/ENDOCX FOR PAP SMEARS Procedures: PAP THIN PREP/[facility] Screening HPV DNA PROBE Comments: [id number] (HPV 16 & 18/45)
[2025-04-17 15:22] LABS: ESR 9 mm/hr (0-30)
[2025-04-17 15:23] LABS: HCT 37.2 % (36.0-46.0); HGB 12.6 g/dL (11.2-15.7); MCH 31.8 pg (27.0-33.0); MCHC 33.9 % (32.0-36.0); MCV 94 fL (80-95); MPV 9.3 fL (8.0-11.0); Platelet Count 367 10^3/uL (130-400); RBC 3.96 10^6/uL (3.93-5.22); RDW 14.5 % (11.7-14.6); RDW-SD 50.6 fL; WBC 5.78 10^3/uL (4.4-10.8)
[2025-04-17 15:35] LABS: TSH (W/Ref FT4) 4.05 uIU/mL (0.55-4.78)
[2025-04-17 15:38] LABS: C-Reactive Protein 0.85 mg/dL (<=0.50)
[2025-04-17 15:41] LABS: ALT 35 U/L (10-49); AST 25 U/L (<34); Albumin 3.8 g/dL (3.2-5.0); Alkaline Phosphatase 60 U/L (46-116); Anion Gap 10.2 mmol/L (3-11); BUN 11 mg/dL (9-23); Bilirubin, Total 0.40 mg/dL (0.2-1.2); CO2 24.8 mmol/L (20.0-31.0); Calcium 8.6 mg/dL (8.3-10.6); Chloride 111 mmol/L (98-107); Cholesterol 255 mg/dL (<200); Glucose 80 mg/dL (74-106); HDL Cholesterol 103 mg/dL (>40); Potassium 3.9 mmol/L (3.5-5.1); Sodium 146 mmol/L (136-145); Total Protein 6.3 g/dL (5.7-8.2)
== END 2025-04-17 13:07 | disposition home or self-care (01) ==
LOC: NCHCN 13:06
PROVIDERS: PCP Nurse Practitioner Family; Visit Provider Nurse Practitioner Family
DX: M79.18 Myalgia, other site (principal); E78.5 Hyperlipidemia, unspecified; Z00.00 Encounter for general adult medical examination without abnormal findings; Z12.4 Encounter for screening for malignant neoplasm of cervix
CPT/HCPCS: 80053; 80061; 85027; 85652; 86200; 88142; 84443; 86038; 86140; 86431; 87624

== ENCOUNTER → 2025-05-08 11:47 | Outpatient (CLI) | payer OTHER, SELFPAY ==
--- NOTE | 2025-04-10 16:20 | DI.MAMMO_ITS ---
Exam(s) MAMMO SCREENING EXAM: MAMMO SCREENING CLINICAL HISTORY: SCREENING,Z12.31. TECHNIQUE: Bilateral full field digital CC and MLO mammographic images were obtained with 3D tomosynthesis and utilizing computer aided detection (CAD). COMPARISON: Prior mammograms were reviewed. FINDINGS: No new right breast findings. In the left breast there are 2 asymmetric densities towards the upper outer quadrant. One of these is unchanged from multiple prior mammograms. Other is more evident than on prior mammograms, measuring 7 by 5 mm and located 12 cm in from the nipple on the CC view. Requires further imaging. There are no new malignant appearing microcalcification groups. There is no significant architectural distortion nor skin thickening-retraction. IMPRESSION: 1. No radiographic evidence of malignancy in the right breast. 2. Asymmetric densities-possible nodules left breast. One of these appears more evident than on prior mammograms, this located laterally 12 cm in from the nipple and measuring 7 x 5 mm. Spot compression views and ultrasound recommended. BI-RADS Category 0 - Incomplete: Need additional imaging evaluation Breast Density - Category C - The breast are heterogeneously dense, which may obscure small masses. Breast density Category C or D implies that the patient has dense breast tissue. Dense breast tissue can make it harder to find cancer on a mammogram. Dense breast tissue is also associated with an increased risk of breast cancer. This information about the result of the mammogram report was provided to the patient to raise their awareness. Use this report when you speak with the patient about their risks for breast cancer, which includes their family history. At that time, you may recommend additional screening tests (Ultrasound or MRI) as these tests may add significant information. A negative radiographic report should not delay biopsy if a dominant or clinically suspicious mass is present. Up to ten percent of cancers are not identified on mammography. A negative report may reinforce clinical impression. Adenosis and dense breasts may obscure an underlying neoplasm. False positive reports average 6 to 10%. Patient will receive a letter notifying them of these results.
== END ==
PROVIDERS: PCP Nurse Practitioner Family; Visit Provider Nurse Practitioner Family
DX: Z12.31 Encounter for screening mammogram for malignant neoplasm of breast (principal)
CPT/HCPCS: 77063; 77067